=== PATIENT | female | born 1930 | race Caucasian/White ===

== ENCOUNTER 2017-02-28 11:21 | Inpatient (IN) ==
[2017-02-28] MEDS ORDERED: ENOXAPARIN 100 MG/ML SYRINGE SUBCUT STA (11:45)
[2017-02-28] MEDS ORDERED: ASPIRIN 325 MG TABLET PO STA (11:45)
[2017-02-28] MEDS ORDERED: ENOXAPARIN 100 MG/ML SYRINGE SUBCUT ONE (12:01)
[2017-02-28] MEDS ORDERED: ASPIRIN 325 MG TABLET ONE (12:01)
[2017-02-28 12:04] LABS: Basophils % 0.3 % (0.0-0.8); Eosinophils % 0.4 % (0.00-10.9); Hematocrit 35.6 VOL% (35.7-47.0); Hemoglobin 11.9 GM/DL (12.0-16.0); Immature Granulocytes % 0.4 %; Immature Granulocytes Absolute 0.03 #; Lymphocytes # 1.5 10*3/uL (1.4-4.0); Lymphocytes % 19.4 % (21.3-54.2); Mean Corpuscular HGB Conc 33.4 GM/DL (32-36); Mean Corpuscular Hemoglobin 31 PG (27-34); Mean Corpuscular Volume 93.4 FL (87-102); Mean Platelet Volume 10.6 FL (9.6-12.0); Monocytes # 0.5 10*3/uL (0.11-0.8); Monocytes % 5.9 % (1.7-12.7); Neutrophils # 5.7 10*3/uL (1.4-7.4); Neutrophils % 73.6 % (38.7-73.9); Platelet Count 191 T/CUMM (130-400); Red Blood Count 3.81 MC/CUMM (3.8-5.5); Red Cell Distribution Width 14.4 % (9.3-17.3); White Blood Count 7.7 T/CUMM (4-12)
--- NOTE | 2017-02-28 12:10 | XRay Report ---
History: Shortness of breath Date: 02/28/2017 Study: Chest x-ray AP portable Comparison exam: August 03, 2015 There is cardiomegaly. The pulmonary vasculature is slightly prominent. There is some hazy pulmonary edema in the lung bases. There is minimal bilateral pleural effusion. The mediastinal contours are stable in this patient status post prior median sternotomy. The osseous structures are unchanged. Impression: Cardiomegaly and evidence of CHF with some bibasilar pulmonary edema PROCEDURE INTERPRETED AT [facility] DEPARTMENT OF RADIOLOGY Final Report Signed by: Dr. Melvi Thao
[2017-02-28 12:39] LABS: Alanine Aminotransferase 28 U/L (13-56); Albumin 3.8 G/DL (3.4-5.0); Alkaline Phosphatase 85 U/L (45-117); Aspartate Amino Transferase 31 U/L (0-37); Blood Urea Nitrogen 28 MG/DL (7-18); Calcium 9.1 MG/DL (8.5-10.1); Glucose 99 MG/DL (74-106); Magnesium 2.5 MG/DL (1.8-2.4); Osmolality,Calculated 288.1 MOS/KG (273-304); Potassium 4.5 MMOL/L (3.5-5.1); Sodium 142 MMOL/L (136-145); Total Protein 7.1 G/DL (6.4-8.3); Troponin I Only < 0.015 NG/ML (0.00-0.045)
--- NOTE | 2017-02-28 12:43 | Emergency Department Note ---
Leah Leal Mantricia, am scribing for, and in the presence of, Stewart Kimball MD 12:07. IRehana Phillip K, MD, personally performed the services described in this documentation, ascribed by Alyssa Lynn in my presence, and it is both accurate and complete 243 . Arrival - Arrival Chief Complaint: Shortness of Breath Stated Complaint: sob, can't breath ED Nursing Triage Note: REPORTS PT C/O OF SOB THIS MORNING WITH HEAVINESS IN CHEST. DENIES NAUSES. PT O2 SAT ON ROOM AIR 90% AT TRIAGE. PT PALE Mode of Arrival: Wheelchair Limitations: No Limitations Source: Patient, Family Time Seen by Provider: 02/28/17 11:35 - History of Present Illness HPI Narrative: Pt is an 86 y/o white female arriving to ED with c/o SOB that onset 0530 this morning. Family states that pt seemed well yesterday when they went to visit her. Pt reports that she woke up this morning smothering and could hardly breathe. Pt has a PMHx of CHF, HTN, COPD, and DVT. Pt also reports right sided hip pain, coughing with yellow sputum, chest heaviness, and right shoulder pain. Pt had a bypass in 1998 and had no stents placed since then. Pt also had a blood clot in her LLE 5 years ago. She reports no other complaints to ED. Onset (ago): hour(s) Consistency: constant Severity: mild Date of Last Menstrual Period: HYST Allergies/Adverse Reactions: Allergies Allergy/AdvReac Type Severity Reaction Status Date / Time Penicillins Allergy ANAPHYLAXIS Verified 08/03/15 11:43 Home Medications: Home Medications Medication Instructions Recorded Confirmed Type Aspirin [Ecotrin] 81 mg PO DAILY 08/03/15 02/28/17 History Carvedilol [Coreg] 25 mg PO BID 08/03/15 02/28/17 History Celecoxib [Celebrex] 200 mg PO BID 08/03/15 02/28/17 History Citalopram [CeleXA] 30 mg PO BEDTIME 08/03/15 02/28/17 History Furosemide Tab [Lasix Tab] 1 - 2 tablet PO DAILY PRN 08/03/15 02/28/17 History Iron,Carbonyl/Ascorbic Acid 1 each PO DAILY 08/03/15 02/28/17 History [Icar-C Tablet] Multivitamin [Multivitamins] 1 each PO DAILY 08/03/15 02/28/17 History Pantoprazole Tab [Protonix Tab] 40 mg PO DAILY 08/03/15 02/28/17 History Albuterol/Ipratropium Neb [Duoneb] 3 ml RESP TX RT Q6H PRN 02/28/17 02/28/17 History Irbesartan [Irbesartan] 75 mg PO DAILY 02/28/17 02/28/17 History Review of System - Review of System 12 point system: reviewed and no additional remarkable complaints except as stated - Review of System Constitutional: Absent: chills, diaphoresis Eyes: Absent: discharge Respiratory: Present: cough (with yellow sputum), other (SOB) Cardiovascular: Present: chest pain (heaviness) Gastrointestinal: Absent: abdominal pain, nausea, vomiting, diarrhea Musculoskeletal: Present: neck pain, other (hip pain; right shoulder pain). Absent: arm pain, back pain, lower back pain, leg pain Skin: Absent: rash, lesions Medical,Surgical,& Family Hx - Medical History Cardio: History of: CHF, Hypertension, Cardiovascular Problems (open heart 1997) Musculoskeletal: History of: Musculoskeletal Problems (chronic pain) - Social History Smoking Status: Never smoker Frequency of Alcohol Use: None Type of Drug Use: None Exam Vital Signs: Vital Signs Temperature 98.4 F 02/28/17 11:32 Pulse Rate 85 02/28/17 11:32 Respiratory Rate 24 02/28/17 11:32 Blood Pressure 203/102 02/28/17 11:32 O2 Sat by Pulse Oximetry 90 L 02/28/17 11:32 - General General appearance: alert, in no apparent distress - Head Head exam: Present: atraumatic, normocephalic, normal inspection - Eye Eye exam: Present: normal appearance, PERRL, EOMI - ENT ENT exam: Present: normal exam, normal oropharynx, mucous membranes moist, TM's normal bilaterally, normal external ear exam - Neck Neck exam: Present: normal inspection, full ROM, trachea midline. Absent: tenderness - Chest Chest inspection: Present: normal inspection, symmetric chest wall rise. Absent : tenderness - Respiratory Respiratory exam: Present: rales - Cardiovascular Cardiovascular exam: Present: regular rate, normal rhythm, normal heart sounds - Abdominal Exam Abdominal exam: Present: soft, normal bowel sounds. Absent: distention, tenderness, guarding, rebound - Extremities Exam Extremities exam: Present: normal inspection, full ROM, normal capillary refill. Absent: tenderness, pedal edema - Back Exam Back exam: Present: normal inspection, full ROM. Absent: tenderness - Neurological Exam Neurological exam: Present: alert, oriented X3, CN II-XII intact, normal gait, reflexes normal - Psychiatric Psychiatric exam: Present: normal affect, normal mood - Skin Skin exam: Present: warm, dry, intact, normal color Results - Labs CBC & BMP: 02/28/17 11:51 02/28/17 11:51 Lab Results: I have reviewed the patients labs (BNP is 1548) Labs: Laboratory Tests 02/28/17 02/28/17 02/28/17 11:51 11:51 11:51 Hgb 11.9 L Hct 35.6 L Lymph % (Auto) 19.4 L ABG pCO2 ABG Total CO2 Chloride 109 H BUN 28 H Creatinine 1.60 H Magnesium 2.5 H B-Natriuretic Peptide 1548 H 02/28/17 12:45 Hgb Hct Lymph % (Auto) ABG pCO2 33.0 L ABG Total CO2 19.6 L Chloride BUN Creatinine Magnesium B-Natriuretic Peptide - EKG EKG results: interpreted by ERMD, sinus rhythm (LVH, right bundle branch block, left anterior hemiblock.) - Diagnostic Findings Procedure: Chest x-ray: report reviewed by me (Cardiomegaly and evidence of CHF with some bibasilar pulmonary edema. ) Disposition Clinical Impression: Congestive heart failure Case discussed with: patient, patient's family Disposition: Still a Patient Condition: Guarded Additional Instructions: Admit to Dr. Man.
[2017-02-28] MEDS ORDERED: ACETAMINOPHEN 325 MG TABLET PO PRN (12:51)
[2017-02-28] MEDS ORDERED: ONDANSETRON 4 MG/2 ML VIAL IV PRN (12:51)
[2017-02-28] MEDS ORDERED: FUROSEMIDE 40 MG/4 ML VIAL IV STA (12:53)
[2017-02-28 12:57] LABS: ABG Base Excess -1.7 MMOL/L (-2.5-2.5); ABG Oxygen Saturation 97.3 % (95-100); ABG PH 7.431 (7.35-7.45); ABG PO2 85.7 MM HG (80-95); ABG TCO2 19.6 MMOL/L (23-27)
--- NOTE | 2017-02-28 13:00 | EKG Report ---
Stationary ECG Study [facility] ER Test Date: 02/28/2017 11:37:15 AM Pat Name: GUS OLSON Department: Room: Gender: F Waiter/Waitress Captain: : 1930 Requested by: Stewart Torres Order Number: [id number] Reading MD: LEILA GUERRERO Intervals [place] Rate: 85 P: 24 MT: 232 QRS: -70 QRSD: 158 T: 76 QT: 425 QTc: 467 Interpretive Statements SINUS RHYTHM WITH PROLONGED MT INTERVAL RIGHT BUNDLE BRANCH BLOCK LEFT ANTERIOR FASCICULAR BLOCK LEFT VENTRICULAR HYPERTROPHY AND ST-T CHANGE Electronically Signed On 03-01-17 08:14:57 CDT by LEILA GUERRERO [email or web address]
[2017-02-28] MEDS ORDERED: FUROSEMIDE 100 MG/10 ML VIAL ONE (13:59)
[2017-02-28 16:06] LABS: Apearance,Urine CLEAR (Clear); Bacteria,Urine Many /HPF (Few); Bilirubin,Urine Negative (Negative); Blood, Urine Negative (Negative); Glucose,Urine (UA) Negative (Negative); Ketones,Urine Negative (Negative); Mucus,Urine Occasional /LPF (Occasional); Nitrite,Urine Negative (Negative); Protein,Urine Negative; RBC,Urine 1 /HPF (0-4); Urine Color Straw (Yellow); Urine Specific Gravity 1.006 (1.001-1.035); Urine Urobilinogen < 2.0 EU/DL (0.2-1.0); WBC,Urine <1 /HPF (0-6)
[2017-02-28] MEDS ORDERED: ALBUTEROL/IPRATROPIUM 3 ML NEB RESP TX PRN (17:11)
[2017-02-28] MEDS ORDERED: hydrALAZINE 20 MG/1 ML VIAL IV PRN (17:12)
--- NOTE | 2017-02-28 17:20 | Cardiology Consult Note ---
<Dhara Nelson E - Last Filed: 02/28/17 16:49> Assessment and Plan - Time spent with patient Time spent with patient: Greater than 30 minutes (1) CAD (coronary artery disease) Status: Chronic Assessment and plan: SEE PLAN OF CARE LISTED BELOW Current Visit: Yes (2) Hx of CABG Status: Chronic Assessment and plan: SEE PLAN OF CARE LISTED BELOW Current Visit: Yes (3) Hypertension Status: Chronic Assessment and plan: SEE PLAN OF CARE LISTED BELOW Current Visit: Yes (4) Dyslipidemia Status: Chronic Assessment and plan: SEE PLAN OF CARE LISTED BELOW Current Visit: Yes (5) D-dimer, elevated Status: Acute Assessment and plan: SEE PLAN OF CARE LISTED BELOW Current Visit: Yes (6) Leg pain, left Status: Acute Current Visit: Yes (7) Congestive heart failure Status: Acute Assessment and plan: SEE PLAN OF CARE LISTED BELOW Current Visit: Yes Qualifiers: Congestive heart failure type: unspecified congestive heart failure type History of Present Illness - Data of Consult Patient: known to practice within the last 3 years Consult date: 02/28/17 Requesting Physician: Murphy Man Primary care physician: Murphy Man - Consult Narrative Reason for consult: SOB History of present illness: DATABASE REPORTING CONSULTANT: DR. SUE Ms. Lee, 86WM, previously followed by Dr. Sue though she has not attended a clinic visit in several years. 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 Risk factors include: Advanced age, known coronary artery disease (S/P CABG 1999 Dr. Diego), hypertension, dyslipidemia, PVD, sedentary lifestyle. History of CHF, abdominal aortic aneurysm (followed by Dr. Schwab with recent follow-up), DVT left lower extremity approximately 4-5 years ago for which she took Coumadin for at least 6 months without recurrence. Echocardiogram February 10, 2014 reveals EF 55% with moderate mitral calcification. Patient presented to the emergency department at [facility] after experiencing shortness of breath upon waking this morning. Family members reported she was having some shortness of breath yesterday evening and during the night however, patient did not recognize having shortness of breath last evening. However, this morning, around 0530, she began to feel a heaviness in center of her chest without radiation, and a smothering sensation. She became significantly short of breath with two-pillow orthopnea. She then saught advice in the ER. Chest lasted approximately 30 minutes. She can identify no aggravating factors nor any alleviating factors. She is unable to write the discomfort on a scale of 1-10 and is currently chest pain-free. Patient reports she is fairly active at home, taking care of her ADLs without complaints of chest pain, heaviness or tightness. She has mild chronic shortness of breath. Upon arrival to the emergency department, she was discovered to have significantly elevated blood pressures averaging 200s/100s. Her daughter-in- law reports that she normally has much better control of her blood pressure. Chest x-ray revealed bibasilar pulmonary edema. First troponin is negative. ProBNP 1548, creatinine 1.6. EKG reveals a right bundle branch block, abnormal EKG. Patient has been given IV Lasix and has diuresed around 800 mL. She is breathing minimally better at this point. At this point, will better control her blood pressure, add nitrates, diurese patient and monitor strict I&O, daily weights. Echocardiogram has been ordered. D-dimer elevated, chronic left lower extremity pain to palpation with chronic edema therefore I will order venous ultrasound. We will continue cycle her cardiac biomarkers. Patient may benefit from cardiac catheterization as she has not had cardiac catheterization since 1998. Will further discuss with Dr. Morel and await additional recommendations. ASSESSMENT/PLAN: 1. ACUTE CHF - Etiology unknown but suspect may be related to uncontrolled hypertension, possible cardiomyopathy. Will further elaborate as additional information is obtained. NYHA Class III. 2. KNOWN CAD S/P CABG 1998 - unfortunately, do not have access to CABG records. Continue to treat with beta-brooke, ARB, lipid-lowering agent, aspirin, nitrates. 3. HYPERTENSION - suboptimally controlled. Getting beta-blockade now with hydralazine as needed systolic blood pressure greater than 160. 4. DYSLIPIDEMIA - lipid panel in the morning. Adding atorvastatin 40 mg each evening starting tonight 5. PVD - history of AAA followed by Dr. Schwab. Reports recent study in the past 6 months and was deemed "stable". 6. ABNORMAL EKG - EKG in the morning. Right bundle branch block of unknown duration 7. ELEVATED D-DIMER - venous ultrasound lower extremity now. May need CT chest, PTE protocol as she has a prior history of DVT approximately 4-5 years ago. CC: Murphy Man, DO - Home Medications and Allergies Home Medications: Home Medications Medication Instructions Recorded Confirmed Type Aspirin [Ecotrin] 81 mg PO DAILY 08/03/15 02/28/17 History Carvedilol [Coreg] 25 mg PO BID 08/03/15 02/28/17 History Celecoxib [Celebrex] 200 mg PO BID 08/03/15 02/28/17 History Citalopram [CeleXA] 30 mg PO BEDTIME 08/03/15 02/28/17 History Furosemide Tab [Lasix Tab] 1 - 2 tablet PO DAILY PRN 08/03/15 02/28/17 History Iron,Carbonyl/Ascorbic Acid 1 each PO DAILY 08/03/15 02/28/17 History [Icar-C Tablet] Multivitamin [Multivitamins] 1 each PO DAILY 08/03/15 02/28/17 History Pantoprazole Tab [Protonix Tab] 40 mg PO DAILY 08/03/15 02/28/17 History Albuterol/Ipratropium Neb [Duoneb] 3 ml RESP TX RT Q6H PRN 02/28/17 02/28/17 History Brimonidine/Timolol Oph Soln 1 drop BOTH EYES DAILY 02/28/17 02/28/17 History [Combigan] Irbesartan [Irbesartan] 75 mg PO DAILY 02/28/17 02/28/17 History Allergies/Adverse Reactions: Allergies Allergy/AdvReac Type Severity Reaction Status Date / Time Penicillins Allergy ANAPHYLAXIS Verified 08/03/15 11:43 Review of systems: REVIEW OF SYSTEMS: - Constitutional Constitutional: Present: Fatigue. Absent: syncope, anorexia, night sweats - EENT Eyes: Absent: blurry vision, loss of vision, diplopia Ears: Absent: decreased hearing, ear pain, ear discharge - Cardiovascular Cardiovascular: Present: chest pain heaviness, squeezing with shortness of breath this morning. Orthopnea, dyspnea on exertion, edema left lower extremity. Denies palpitations. Absent: chest pain with deep breath, claudication - Respiratory Respiratory: Present: VILL[place]VA, cough of thick yellow sputum. Absent: wheezing, hemoptysis, change in phlegm color - Gastrointestinal Gastrointestinal: Denies: constipation. Absent: abdominal pain, hematemesis, hematochezia, melena, change in bowel habits, nausea - Genitourinary Genitourinary: Absent: difficulty urinating, dysuria, urinary hesitancy, flank pain - Musculoskeletal Musculoskeletal: Present: back pain Absent: joint swelling, muscle cramps, muscle weakness - Neurological Neurological: Present: normal gait without frequent falls. Absent: dizziness, hemiparesis - Psychiatric Psychiatric: Absent: anxiety, depression, difficulty concentrating - Endocrine Endocrine: Present: fatigue. Absent: cold intolerance, heat intolerance, polyuria, polyphagia, polydipsia - Hematologic/Lymphatic Hematologic/Lymphatic: Present: easy bruising. Absent: easy bleeding -Integumentary Integumentary: Absent: lesions, rashes, skin breakdown Medical,Surgical,& Family Hx - Medical History Cardio: History of: Aneurysm (AAA), CHF, CAD, Hypertension, Cardiovascular Problems (open heart 1997) No history of: Cardiac Dysrhythmia Neurology: No history of: Seizures, TIA Endocrine: History of: Dyslipidemia No history of: Diabetes Mellitus (NIDDM), Thyroid Disorder Gastrointestinal: History of: GERD Musculoskeletal: History of: Musculoskeletal Problems (chronic pain) - Surgical History Cardiac Surgeries: Sugical HX of: Cardiac Catheterization, Cardiac Surgery () - Family History Family History: Reports;: Family Hypertension - Social History Smoking Status: Never smoker Frequency of Alcohol Use: None Type of Drug Use: None Marital Status: Lives With:: Alone Functional capacity: uses cane/walker Physical Examination Vital Signs Temp Pulse Resp BP Pulse Ox 98.4 F 85 24 203/102 90 L 02/28/17 11:32 02/28/17 11:32 02/28/17 11:32 02/28/17 11:32 02/28/17 11:32 General: [Appears well with no apparent distress.] [Pleasant and cooperative. ] [Appears comfortable.] HEENT: [PERRL, normocephalic, atraumatic. Mucous membranes moist. No jaundice noted. Conjunctiva moist and clear, sclerae anicteric] Neck: Difficult to assess for JVD due to habitus. No thyromegaly or lymphadenopathy noted. No carotid bruit appreciated Cardiac: [Regular rate and rhythm.] [Soft II/ HSM heard best at 5 ICS left. Lungs: [Inspiratory crackles posteriorly midway at both lung marshall, improved but persist with deep coughing. Mild, and expiratory wheezes noted anteriorly. Orthopneic, mild tachypnea] Oxygen in use via nasal cannula Abdomen: Soft, bowel sounds normoactive. Nontender and nondistended. No abdominal bruit or thrill noted. Musculoskeletal: No fluid collection. Decreased range of motion is noted. Extremities: No clubbing, cyanosis noted. [Left lower extremity edema trace, tender to touch. ] Upper extremity pulses 2+. Lower extremity pulses 2+. Capillary refill less than 3 seconds. Skin: No unusual lesions or rashes. No skin breakdown appreciated. Neuro: Awake, alert and oriented 3. Moves all extremities well without hemiparesis or paralysis. No essential tremor is appreciated. Result/EKG - Labs CBC & BMP: 02/28/17 11:51 02/28/17 11:51 Lab Results: I have reviewed the past 24 hour labs Labs: Laboratory Results - last 24 hr 02/28/17 02/28/17 02/28/17 11:51 11:51 11:51 WBC 7.7 RBC 3.81 Hgb 11.9 L Hct 35.6 L MCV 93.4 MCH 31 MCHC 33.4 RDW 14.4 Plt Count 191 MPV 10.6 Neut % (Auto) 73.6 Lymph % (Auto) 19.4 L [place] % (Auto) 5.9 Eos % (Auto) 0.4 Baso % (Auto) 0.3 Neut # (Auto) 5.7 Lymph # (Auto) 1.5 [place] # (Auto) 0.5 Eos # (Auto) 0.0 Baso # (Auto) 0.0 Immature Gran % 0.4 Nucleated RBC % 0.0 Immature Gran # 0.03 Nucleated RBCs # 0.00 D-Dimer, Quantitative 4.4 ABG pH ABG pCO2 ABG pO2 ABG HCO3 ABG Total CO2 ABG O2 Saturation ABG Base Excess Sodium 142 Potassium 4.5 Chloride 109 H Carbon Dioxide 24 Anion Gap 13.5 BUN 28 H Creatinine 1.60 H GFR Calculation 30 BUN/Creatinine Ratio 17.00 Glucose 99 Calculated Osmolality 288.1 Calcium 9.1 Magnesium 2.5 H Total Bilirubin 1.00 AST 31 ALT 28 Alkaline Phosphatase 85 Troponin I < 0.015 B-Natriuretic Peptide Total Protein 7.1 Albumin 3.8 Globulin 3.3 Albumin/Globulin Ratio 1.1 Urine Color Urine Appearance Urine pH Ur Specific Chavies Urine Protein Urine Glucose (UA) Urine Ketones Urine Blood Urine Nitrate Urine Bilirubin Urine Urobilinogen Urine Leukocytes Urine RBC Urine WBC Urine Bacteria Urine Mucus Ur Culture Indicated? 02/28/17 02/28/17 02/28/17 11:51 12:45 15:51 WBC RBC Hgb Hct MCV MCH MCHC RDW Plt Count MPV Neut % (Auto) Lymph % (Auto) [place] % (Auto) Eos % (Auto) Baso % (Auto) Neut # (Auto) Lymph # (Auto) [place] # (Auto) Eos # (Auto) Baso # (Auto) Immature Gran % Nucleated RBC % Immature Gran # Nucleated RBCs # D-Dimer, Quantitative ABG pH 7.431 ABG pCO2 33.0 L ABG pO2 85.7 ABG HCO3 23.0 ABG Total CO2 19.6 L ABG O2 Saturation 97.3 ABG Base Excess -1.7 Sodium Potassium Chloride Carbon Dioxide Anion Gap BUN Creatinine GFR Calculation BUN/Creatinine Ratio Glucose Calculated Osmolality Calcium Magnesium Total Bilirubin AST ALT Alkaline Phosphatase Troponin I B-Natriuretic Peptide 1548 H Total Protein Albumin Globulin Albumin/Globulin Ratio Urine Color Straw Urine Appearance Clear Urine pH 6.0 Ur Specific [place] 1.006 Urine Protein Negative Urine Glucose (UA) Negative Urine Ketones Negative Urine Blood Negative Urine Nitrate Negative Urine Bilirubin Negative Urine Urobilinogen < 2.0 H Urine Leukocytes Negative Urine RBC 1 Urine WBC <1 Urine Bacteria Many Urine Mucus Occasional Ur Culture Indicated? Not indicated - Diagnostic Findings Procedure: Chest x-ray: report reviewed by me - EKG EKG results: interpreted by id EKG shows: sinus rhythm (Right bundle branch block) <Tahmina Morel - Last Filed: 02/28/17 18:39> Assessment and Plan - Time spent with patient Time spent with patient: Greater than 30 minutes (Examination, chart review, interview documentation and orders) (1) Malignant hypertensive urgency Status: Acute Current Visit: Yes (2) Acute decompensated heart failure Status: Acute Assessment and plan: I think this is certainly from diastolic dysfunction severely uncontrolled or malignant hypertension with evidence of endorgan damage his heart failure. Certainly she may have underlying ischemia I will cycle her cardiac biomarkers continue with anticoagulation repeat transthoracic echo to assess LV function and diastolic parameters. Current Visit: Yes (3) CAD (coronary artery disease) Status: Chronic Current Visit: Yes (4) Hypertension Status: Chronic Current Visit: Yes (5) Dyslipidemia Status: Chronic Current Visit: Yes (6) D-dimer, elevated Status: Acute Current Visit: Yes (7) Leg pain, left Status: Acute Current Visit: Yes (8) history recurrent DVT Status: Chronic Current Visit: Yes (9) chronic low back pain Status: Chronic Current Visit: Yes (10) abdominal aortic aneurysm Status: Chronic Current Visit: Yes (11) Chronic renal insufficiency Status: Acute Current Visit: Yes History of Present Illness - Consult Narrative History of present illness: Ms. Lee is a 86 year old female I saw and examined the patient earlier with Ms. sosa. The above history is noted and taken from the patient. The patient has volume overload at this time and severely uncontrolled blood pressure I suspect this is diastolic dysfunction and volume overload secondary to hypertensive urgency. This is compounded by renal insufficiency. She also has an elevated d-dimer that may be related to renal insufficiency but she has had problems with of this in the past which may be contributing. Her exam and chest x-ray to me looked like heart failure. From talking to her children it sounds like she has been having more difficulty then she leads us to believe. She has a relatively poor functional status but has advanced age. She has classic orthopnea and heaviness in her chest with shortness of breath that woke her up around 430 this morning. She states that this is not why she woke up but she normally gets up later and she called her children she describes a heaviness in her chest this certainly could be the uncontrolled hypertension, pulmonary edema, pulmonary embolism or ACS. She is some 17 years out from her last cardiac evaluation invasively time she received a bypass grafting. Her second troponin is minimally increased from her previous immeasurably low troponin. This also could come from renal insufficiency and her decompensated state with hypertension. We will try to control her blood pressure and diuresis she has a large volume of clear yellow urine in her Lem[place] at this time. I saw and examined with Ms. sosa and agree with her findings as below. CC: Murphy Man, DO Review of systems: As above Physical Examination Vital Signs Temp Pulse Resp BP Pulse Ox 98.4 F 85 24 203/102 90 L 02/28/17 11:32 02/28/17 11:32 02/28/17 11:32 02/28/17 11:32 02/28/17 11:32 She has an S4 gallop. She also has rales as dictated above. Pain with palpation of her lower extremities but no unilateral edema. This is pain is been chronic since her vein graft harvest. Result/EKG - Labs CBC & BMP: 02/28/17 11:51 02/28/17 11:51 Labs: Laboratory Results - last 24 hr 02/28/17 02/28/17 02/28/17 11:51 11:51 11:51 WBC 7.7 RBC 3.81 Hgb 11.9 L Hct 35.6 L MCV 93.4 MCH 31 MCHC 33.4 RDW 14.4 Plt Count 191 MPV 10.6 Neut % (Auto) 73.6 Lymph % (Auto) 19.4 L [place] % (Auto) 5.9 Eos % (Auto) 0.4 Baso % (Auto) 0.3 Neut # (Auto) 5.7 Lymph # (Auto) 1.5 [place] # (Auto) 0.5 Eos # (Auto) 0.0 Baso # (Auto) 0.0 Immature Gran % 0.4 Nucleated RBC % 0.0 Immature Gran # 0.03 Nucleated RBCs # 0.00 D-Dimer, Quantitative 4.4 ABG pH ABG pCO2 ABG pO2 ABG HCO3 ABG Total CO2 ABG O2 Saturation ABG Base Excess Sodium 142 Potassium 4.5 Chloride 109 H Carbon Dioxide 24 Anion Gap 13.5 BUN 28 H Creatinine 1.60 H GFR Calculation 30 BUN/Creatinine Ratio 17.00 Glucose 99 Calculated Osmolality 288.1 Calcium 9.1 Magnesium 2.5 H Total Bilirubin 1.00 AST 31 ALT 28 Alkaline Phosphatase 85 Total Creatine Kinase CK-MB (CK-2) Troponin I < 0.015 B-Natriuretic Peptide Total Protein 7.1 Albumin 3.8 Globulin 3.3 Albumin/Globulin Ratio 1.1 Free T4 TSH 3rd Generation Urine Color Urine Appearance Urine pH Ur Specific Chavies Urine Protein Urine Glucose (UA) Urine Ketones Urine Blood Urine Nitrate Urine Bilirubin Urine Urobilinogen Urine Leukocytes Urine RBC Urine WBC Urine Bacteria Urine Mucus Ur Culture Indicated? 02/28/17 02/28/17 02/28/17 11:51 12:45 15:51 WBC RBC Hgb Hct MCV MCH MCHC RDW Plt Count MPV Neut % (Auto) Lymph % (Auto) [place] % (Auto) Eos % (Auto) Baso % (Auto) Neut # (Auto) Lymph # (Auto) [place] # (Auto) Eos # (Auto) Baso # (Auto) Immature Gran % Nucleated RBC % Immature Gran # Nucleated RBCs # D-Dimer, Quantitative ABG pH 7.431 ABG pCO2 33.0 L ABG pO2 85.7 ABG HCO3 23.0 ABG Total CO2 19.6 L ABG O2 Saturation 97.3 ABG Base Excess -1.7 Sodium Potassium Chloride Carbon Dioxide Anion Gap BUN Creatinine GFR Calculation BUN/Creatinine Ratio Glucose Calculated Osmolality Calcium Magnesium Total Bilirubin AST ALT Alkaline Phosphatase Total Creatine Kinase CK-MB (CK-2) Troponin I B-Natriuretic Peptide 1548 H Total Protein Albumin Globulin Albumin/Globulin Ratio Free T4 TSH 3rd Generation Urine Color Straw Urine Appearance Clear Urine pH 6.0 Ur Specific [place]av[place] 1.006 Urine Protein Negative Urine Glucose (UA) Negative Urine Ketones Negative Urine Blood Negative Urine Nitrate Negative Urine Bilirubin Negative Urine Urobilinogen < 2.0 H Urine Leukocytes Negative Urine RBC 1 Urine WBC <1 Urine Bacteria Many Urine Mucus Occasional Ur Culture Indicated? Not indicated 02/28/17 02/28/17 17:30 17:40 WBC RBC Hgb Hct MCV MCH MCHC RDW Plt Count MPV Neut % (Auto) Lymph % (Auto) [place] % (Auto) Eos % (Auto) Baso % (Auto) Neut # (Auto) Lymph # (Auto) [place] # (Auto) Eos # (Auto) Baso # (Auto) Immature Gran % Nucleated RBC % Immature Gran # Nucleated RBCs # D-Dimer, Quantitative ABG pH ABG pCO2 ABG pO2 ABG HCO3 ABG Total CO2 ABG O2 Saturation ABG Base Excess Sodium Potassium Chloride Carbon Dioxide Anion Gap BUN Creatinine GFR Calculation BUN/Creatinine Ratio Glucose Calculated Osmolality Calcium Magnesium Total Bilirubin AST ALT Alkaline Phosphatase Total Creatine Kinase 81 CK-MB (CK-2) 2.4 Troponin I 0.019 B-Natriuretic Peptide Total Protein Albumin Globulin Albumin/Globulin Ratio Free T4 1.15 TSH 3rd Generation 0.951 Urine Color Urine Appearance Urine pH Ur Specific [place]av[place] Urine Protein Urine Glucose (UA) Urine Ketones Urine Blood Urine Nitrate Urine Bilirubin Urine Urobilinogen Urine Leukocytes Urine RBC Urine WBC Urine Bacteria Urine Mucus Ur Culture Indicated? 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
[2017-02-28 18:12] LABS: Free T4 (Free Thyroxine) 1.15 NG/DL (0.76-1.46); Thyroid Stimulating Hormone 0.951 uIU/ml (0.358-3.74)
--- NOTE | 2017-02-28 18:12 | Family Practice History&Phys ---
Assessment and Plan (1) Congestive heart failure Status: Acute Assessment and plan: Acute onset last PM. Has elevated BNP with congestive heart failure noted on chest x-ray. Will start on diuretics and appropriate therapy Current Visit: Yes Qualifiers: Congestive heart failure type: unspecified congestive heart failure type (2) substernal chest pain Status: Acute Assessment and plan: Initial EKG and isoenzymes were negative for ischemia. We'll need to evaluate further. Current Visit: Yes (3) Hypertension Status: Chronic Assessment and plan: History of poorly controlled at present. We'll need to modify medications Current Visit: Yes (4) chronic obstructive pulmonary disease Status: Chronic Assessment and plan: Stable on present treatment plan Current Visit: Yes (5) obstructive sleep apnea Status: Chronic Assessment and plan: Stable at present Current Visit: Yes (6) s/p coronary artery bypass graft Status: Chronic Assessment and plan: Stable on present treatment plan Current Visit: Yes (7) history recurrent DVT Status: Chronic Assessment and plan: History of recurrent deep vein thrombosis Current Visit: Yes (8) abdominal aortic aneurysm Status: Chronic Assessment and plan: Stable at present Current Visit: Yes (9) CAD (coronary artery disease) Status: Chronic Assessment and plan: Stable on present treatment plan Current Visit: Yes (10) chronic low back pain Status: Chronic Assessment and plan: History of chronic low back pain stable at present. Said previous lumbar discectomy Current Visit: Yes (11) Dyslipidemia Status: Chronic Assessment and plan: Stable on present treatment plan Current Visit: Yes History of Present Illness Chief complaint: dyspnea and chest pain History of present illness: Ms. Lee is a 86 year old female Patient presented to the emergency department complaining of shortness of breath upon waking this morning. Family members reported she was having some shortness of breath yesterday evening and during the night however, patient did not recognize having shortness of breath last evening this morning, around 0530 , she began to feel a heaviness in center of her chest without radiation, and a smothering sensation. She became significantly short of breath with two-pillow orthopnea.Her Chest pain lasted approximately 30 minutes. She can identify no aggravating factors nor any alleviating factors. Patient reports she is fairly active at home, taking care of her ADLs without complaints of chest pain, heaviness or tightness. She has mild chronic shortness of breath due to chronic obstructive pulmonary disease. Upon arrival in the emergency department , she was discovered to have significantly elevated blood pressures averaging 200s/100s. Her [id number] reports that she normally has much better control of her blood pressure. Chest x-ray revealed bibasilar pulmonary edema. First troponin is negative. ProBNP 1548, creatinine 1.6. EKG reveals a right bundle branch block, abnormal EKG. Patient has been given IV Lasix and has diuresed around 800 mL. in view of history patient is being admitted for further evaluation and therapy Home Medications Medication Instructions Recorded Confirmed Type Aspirin [Ecotrin] 81 mg PO DAILY 08/03/15 02/28/17 History Carvedilol [Coreg] 25 mg PO BID 08/03/15 02/28/17 History Celecoxib [Celebrex] 200 mg PO BID 08/03/15 02/28/17 History Citalopram [CeleXA] 30 mg PO BEDTIME 08/03/15 02/28/17 History Furosemide Tab [Lasix Tab] 1 - 2 tablet PO DAILY PRN 08/03/15 02/28/17 History Iron,Carbonyl/Ascorbic Acid 1 each PO DAILY 08/03/15 02/28/17 History [Icar-C Tablet] Multivitamin [Multivitamins] 1 each PO DAILY 08/03/15 02/28/17 History Pantoprazole Tab [Protonix Tab] 40 mg PO DAILY 08/03/15 02/28/17 History Albuterol/Ipratropium Neb [Duoneb] 3 ml RESP TX RT Q6H PRN 02/28/17 02/28/17 History Brimonidine/Timolol Oph Soln 1 drop BOTH EYES DAILY 02/28/17 02/28/17 History [Combigan] Irbesartan [Irbesartan] 75 mg PO DAILY 02/28/17 02/28/17 History Allergies Allergy/AdvReac Type Severity Reaction Status Date / Time Penicillins Allergy ANAPHYLAXIS Verified 08/03/15 11:43 Medical,Surgical,& Family Hx - Medical History Cardio: History of: Aneurysm (AAA), CHF, CAD, Hypertension, Cardiovascular Problems (open heart 1997) No history of: Cardiac Dysrhythmia Neurology: No history of: Seizures, TIA Endocrine: History of: Dyslipidemia No history of: Diabetes Mellitus (NIDDM), Thyroid Disorder Rheumatology: History of;: Fibromyalgia Respiratory: History of: COPD Renal: History of: Renal Failure Gastrointestinal: History of: GERD Musculoskeletal: History of: Musculoskeletal Problems (chronic pain) Hematology: History of: Anemia (anemia of chronic disease) - Surgical History Cardiac Surgeries: Sugical HX of: Cardiac Catheterization, Cardiac Surgery (98) HEENT Surgeries: Surgical HX of: Tonsilectomy & Adenoidectomy Abdominal Surgeries: Surgical HX of: Hernia Repair (umbilical hernia repair) Reproductive Surgeries: Surgical HX of;: Hysterectomy Orthopedic Surgeries: Surgical HX of;: Orthopedic Surgery (arthroscopic surgery right knee), Spinal Surgery (lumbar laminectomy), Total Knee Replacement (left side) - Family History Family History: Reports;: Family Cancer, Family Hypertension - Social History Smoking Status: Never smoker Frequency of Alcohol Use: None Type of Drug Use: None Marital Status: Lives With:: Children Functional capacity: uses cane/walker Exam - Constitutional Vitals: Period Temp Pulse Resp BP Sys/Arteaga Pulse Ox Last 24 Hr 97.9 F-98.4 F 67-85 18-24 193-203/88-102 90-97 General appearance: mild distress - Head Head exam: Present: normal inspection - Eye Pupils: Present: JENNY - ENT ENT exam: Present: normal exam - Neck Neck exam: Present: normal inspection - Respiratory Respiratory exam: Present: rales - Cardiovascular Cardiovascular exam: Present: irregular rhythm, systolic murmur - GI/Abdominal GI/Abdominal exam: Present: normal bowel sounds, soft - Extremities Exam Extremities exam: Present: full ROM, edema - Back Exam Back exam: Present: muscle spasm, vertebral tenderness - Neurological Exam Neurological exam: Present: alert, oriented X3 - Psychiatric Psychiatric exam: Present: normal affect, normal mood - Skin Skin exam: Present: normal color Results - Labs CBC & BMP: 02/28/17 11:51 02/28/17 11:51
[2017-02-28 18:14] LABS: Troponin I Only 0.019 NG/ML (0.00-0.045)
[2017-02-28] MEDS: NITROGLYCERIN 2% OINT 1 INCH/GM PACK TOP SCH (18:33)
[2017-02-28] MEDS: CARVEDILOL 25 MG TABLET PO SCH ×2 (18:33→21:55)
[2017-02-28] MEDS: ENOXAPARIN 40 MG/0.4 ML SYRINGE SUBCUT SCH (18:33)
[2017-02-28] MEDS ORDERED: hydrALAZINE 20 MG/1 ML VIAL IV ONE (18:39)
--- NOTE | 2017-02-28 19:57 | Ultrasound Report ---
US venous doppler LE BI Indication: Elevated d-dimer. History of prior DVT. Left leg pain and swelling. BILATERAL LOWER EXTREMITY VENOUS ULTRASOUND Comparison: 11/22/2016 Findings: Graded grayscale compression, color Doppler and pulsed Doppler ultrasound evaluation of the venous structures performed. Normal compressibility, augmentation and color saturation is present within bilateral common femoral, superficial femoral, popliteal and proximal greater saphenous veins. Impression: No evidence of DVT either lower extremity. PROCEDURE INTERPRETED AT [facility] DEPARTMENT OF RADIOLOGY Final Report Signed by: Michael Chapman M.D.
[2017-02-28] MEDS ORDERED: CELECOXIB 200 MG CAPSULE PO SCH (21:00)
[2017-02-28] MEDS: FUROSEMIDE 40 MG/4 ML VIAL IV SCH (21:16)
[2017-02-28] MEDS: CITALOPRAM 20 MG TABLET PO SCH (21:54)
[2017-02-28] MEDS: MAGNESIUM OXIDE 400 MG TABLET PO SCH (21:55)
[2017-02-28] MEDS: ATORVASTATIN 40 MG TABLET PO SCH (21:55)
[2017-02-28] MEDS: DOCUSATE SODIUM 100 MG CAPSULE PO SCH (21:56)
[2017-03-01] MEDS: NITROGLYCERIN 2% OINT 1 INCH/GM PACK TOP SCH ×2 (02:31→05:58)
[2017-03-01 04:44] LABS: Basophils % 0.2 % (0.0-0.8); Eosinophils % 0.2 % (0.00-10.9); Hematocrit 35.1 VOL% (35.7-47.0); Hemoglobin 11.5 GM/DL (12.0-16.0); Immature Granulocytes % 0.4 %; Immature Granulocytes Absolute 0.03 #; Lymphocytes # 1.6 10*3/uL (1.4-4.0); Lymphocytes % 18.1 % (21.3-54.2); Mean Corpuscular HGB Conc 32.8 GM/DL (32-36); Mean Corpuscular Hemoglobin 30 PG (27-34); Mean Corpuscular Volume 92.9 FL (87-102); Mean Platelet Volume 11.6 FL (9.6-12.0); Monocytes # 0.6 10*3/uL (0.11-0.8); Monocytes % 6.4 % (1.7-12.7); Neutrophils # 6.4 10*3/uL (1.4-7.4); Neutrophils % 74.7 % (38.7-73.9); Platelet Count 197 T/CUMM (130-400); Red Blood Count 3.78 MC/CUMM (3.8-5.5); Red Cell Distribution Width 14.5 % (9.3-17.3); White Blood Count 8.5 T/CUMM (4-12)
[2017-03-01 05:12] LABS: Albumin 3.7 G/DL (3.4-5.0); Bilirubin,Total 1.1 MG/DL (0.2-1.0); Calcium 9.6 MG/DL (8.5-10.1); Ferritin 93.6 ng/ml (8-252); Osmolality,Calculated 290.1 MOS/KG (273-304); Potassium 4.5 MMOL/L (3.5-5.1); Total Protein 6.5 G/DL (6.4-8.3)
[2017-03-01 05:17] LABS: Calcium 9.6 MG/DL (8.5-10.1); Magnesium 2.7 MG/DL (1.8-2.4); Osmolality,Calculated 290.1 MOS/KG (273-304); Potassium 4.4 MMOL/L (3.5-5.1); Risk Ratio 4.22; VLDL CHOLESTEROL 23.6 MG/DL
[2017-03-01] MEDS: ENOXAPARIN 40 MG/0.4 ML SYRINGE SUBCUT SCH (05:58)
--- NOTE | 2017-03-01 07:43 | EKG Report ---
Stationary ECG Study [facility] Test Date: 03/01/2017 7:42:21 AM Pat Name: GUS OLSON Department: Room: 294 Gender: F [employer] Binding Worker: : 1930 Requested by: Dhara Payan Order Number: [id number] Reading MD: DAVID HICKS Intervals [place] Rate: 68 P: 65 OR: 216 QRS: -73 QRSD: 153 T: 83 QT: 490 QTc: 507 Interpretive Statements SINUS RHYTHM WITH PROLONGED OR INTERVAL WITH FREQUENT SUPRAVENTRICULAR PREMATURE COMPLEXES RIGHT BUNDLE BRANCH BLOCK LEFT ANTERIOR FASCICULAR BLOCK LEFT VENTRICULAR HYPERTROPHY AND ST-T CHANGE POSSIBLE SEPTAL MYOCARDIAL INFARCTION, PROBABLY OLD Electronically Signed On 03-01-17 15:40:12 CDT by DAVID HICKS [email or web address]
--- NOTE | 2017-03-01 08:29 | XRay Report ---
XR chest 2V Date: 03/01/2017 4:00 AM History: Congestive heart failure Comparison: 02/28/2017 Technique: PA and lateral chest Findings: The heart is smaller in size with prior median sternotomy. Diffuse arterial calcifications with calcification in the mitral valve annulus. Significant reduction in the parenchymal findings in the lungs with smaller pleural effusions. The lungs are overexpanded with stable mediastinum and osseous structures. Impression: Marked improvement in the previously noted CHF with significantly smaller pleural effusions. Underlying COPD with chronic scarring in patient with prior median sternotomy. PROCEDURE INTERPRETED AT [facility] DEPARTMENT OF RADIOLOGY Final Report Signed by: Dr. Hali Alaniz
[2017-03-01] MEDS: IRBESARTAN 150 MG TABLET PO SCH (09:03)
[2017-03-01] MEDS: ASPIRIN EC 81 MG TABLET PO SCH (09:03)
[2017-03-01] MEDS: POTASSIUM CHLORIDE 20 MEQ TABLET PO SCH (09:03)
[2017-03-01] MEDS: IRON (CARBONYL)/VIT C/B12/FA TABLET PO SCH (09:03)
[2017-03-01] MEDS: PANTOPRAZOLE 40 MG TABLET PO SCH (09:04)
[2017-03-01] MEDS: MAGNESIUM OXIDE 400 MG TABLET PO SCH ×2 (09:04→20:58)
[2017-03-01] MEDS: CARVEDILOL 25 MG TABLET PO SCH ×2 (09:04→20:58)
[2017-03-01] MEDS: DOCUSATE SODIUM 100 MG CAPSULE PO SCH ×2 (09:04→20:58)
[2017-03-01] MEDS: MULTIVITAMIN (CENTRUM) TABLET PO SCH (09:04)
[2017-03-01] MEDS: amLODIPine 5 MG TABLET PO SCH (09:04)
[2017-03-01] MEDS: BRIMONIDINE/TIMOLOL OPH SOLN 5 ML BOTTLE BOTH EYES SCH (09:05)
[2017-03-01] MEDS: FUROSEMIDE 40 MG/4 ML VIAL IV SCH (09:06)
--- NOTE | 2017-03-01 10:13 | Cardiology Progress Note ---
<Dhara Nelson E - Last Filed: 03/01/17 10:00> Assessment and Plan - Time spent with patient Time spent with patient: Greater than 30 minutes (1) CAD (coronary artery disease) Status: Chronic Assessment and plan: SEE PLAN OF CARE LISTED BELOW Current Visit: Yes (2) Hx of CABG Status: Deleted Assessment and plan: SEE PLAN OF CARE LISTED BELOW Current Visit: Yes (3) Hypertension Status: Chronic Assessment and plan: SEE PLAN OF CARE LISTED BELOW Current Visit: Yes (4) Dyslipidemia Status: Chronic Assessment and plan: SEE PLAN OF CARE LISTED BELOW Current Visit: Yes (5) D-dimer, elevated Status: Chronic Assessment and plan: SEE PLAN OF CARE LISTED BELOW Current Visit: Yes (6) Leg pain, left Status: Chronic Assessment and plan: SEE PLAN OF CARE LISTED BELOW Current Visit: Yes (7) Congestive heart failure Status: Acute Assessment and plan: SEE PLAN OF CARE LISTED BELOW Current Visit: Yes Qualifiers: Congestive heart failure type: unspecified congestive heart failure type (8) Acute renal insufficiency Status: Acute Assessment and plan: SEE PLAN OF CARE LISTED BELOW Current Visit: Yes Cardiology - PN: Subj Interval history: INFORMATION SECURITY RISK ANALYST: DR. REYNOSO SUMMARY: Ms. Lee, 86WM, with a past medical history of coronary artery disease (S/P CABG 1999 Dr. Diego), hypertension, dyslipidemia, PVD (AAA followed by Dr. Schwab), CHF, DVT left lower extremity approximately 4-5 years ago for which she took Coumadin for at least 6 months without recurrence. Admitted February 28, 2017 for acute CHF, hypertensive urgency. MARCH 01, 2017: This morning, patient is resting more comfortably, less tachypneic. Overnight, patient has lost 1-1/2 kg. Cardiac biomarkers are negative and blood pressure is much better controlled. Of note, patient did receive an injection she believes to be a steroid injection in her left hip on Sunday from pain management. She reports her blood pressure is usually better controlled than her recorded blood pressures then admission vital signs. Labs are stable, creatinine increased from 1.6-1.9. Venous ultrasound revealed no DVT. LDL 166. Atorvastatin was initiated last evening. Blood pressure better controlled (SBP 140-150s) and there may be room to increase Norvasc. Will continue to follow vital signs throughout the day. Patient may benefit from cardiac catheterization eventually. Will further discuss with Dr. Morel and await additional recommendations. ASSESSMENT/PLAN: 1. ACUTE CHF - Etiology unknown but suspect may be related to uncontrolled hypertension, possible cardiomyopathy. Will further elaborate as additional information is obtained. NYHA Class III. Echo pending. 2. KNOWN CAD S/P CABG 1998 - unfortunately, do not have access to CABG records. Continue to treat with beta-brooke, ARB, lipid-lowering agent, aspirin, nitrates. 3. HYPERTENSION - better controlled on Coreg, Amlodipine, ARB. May have room to increase Amlodipine and will watch today's VS. 4. DYSLIPIDEMIA - LDL 166. Atorvastatin was initiated last evening. 5. PVD - history of AAA followed by Dr. Schwab. Reports recent study in the past 6 months and was deemed "stable". 6. ABNORMAL EKG - Right bundle branch block of unknown duration 7. ELEVATED D-DIMER - venous ultrasound lower extremity reveals no DVT. May be related to her creatinine elevation. 8. ACUTE RENAL FAILURE, STAGE IV - Creatinine 1.9 this morning. I suspect she was a component of CKD though I have no records to support. Will continue to monitor labs daily. Exam (Progress Note) - Constitutional Vitals: Period Temp Pulse Resp BP Sys/Arteaga Pulse Ox Last 24 Hr 97.3 F-98.6 F 63-85 16-24 142-203/76-102 90-98 Exam: General: [Appears well with no apparent distress.] [Pleasant and cooperative. ] [Appears comfortable.] HEENT: [PERRL, normocephalic, atraumatic. Mucous membranes moist. No jaundice noted. Conjunctiva moist and clear, sclerae anicteric] Neck: Difficult to assess for JVD due to habitus. No thyromegaly or lymphadenopathy noted. No carotid bruit appreciated Cardiac: [Regular rate and rhythm.] [Soft II/ HSM heard best at 5 ICS left. Lungs: [Scant crackles in bases, less tachypneic. Off oxygen this morning. Abdomen: Soft, bowel sounds normoactive. Nontender and nondistended. No abdominal bruit or thrill noted. Musculoskeletal: No fluid collection. Decreased range of motion is noted. Extremities: No clubbing, cyanosis noted. [No edema lower extremities. TEDs on. ] Upper extremity pulses 2+. Lower extremity pulses 2+. Capillary refill less than 3 seconds. Skin: No unusual lesions or rashes. No skin breakdown appreciated. Neuro: Awake, alert and oriented 3. Moves all extremities well without hemiparesis or paralysis. No essential tremor is appreciated. Result/EKG - Labs CBC & BMP: 03/01/17 03:39 03/01/17 03:39 Lab Results: I have reviewed the past 24 hour labs Labs: Laboratory Results - last 24 hr 02/28/17 02/28/17 02/28/17 11:51 11:51 11:51 WBC 7.7 RBC 3.81 Hgb 11.9 L Hct 35.6 L MCV 93.4 MCH 31 MCHC 33.4 RDW 14.4 Plt Count 191 MPV 10.6 Neut % (Auto) 73.6 Lymph % (Auto) 19.4 L [place] % (Auto) 5.9 Eos % (Auto) 0.4 Baso % (Auto) 0.3 Neut # (Auto) 5.7 Lymph # (Auto) 1.5 [place] # (Auto) 0.5 Eos # (Auto) 0.0 Baso # (Auto) 0.0 Immature Gran % 0.4 Nucleated RBC % 0.0 Immature Gran # 0.03 Nucleated RBCs # 0.00 D-Dimer, Quantitative 4.4 ABG pH ABG pCO2 ABG pO2 ABG HCO3 ABG Total CO2 ABG O2 Saturation ABG Base Excess Sodium 142 Potassium 4.5 Chloride 109 H Carbon Dioxide 24 Anion Gap 13.5 BUN 28 H Creatinine 1.60 H GFR Calculation 30 BUN/Creatinine Ratio 17.00 Glucose 99 Calculated Osmolality 288.1 Calcium 9.1 Magnesium 2.5 H Ferritin Total Bilirubin 1.00 AST 31 ALT 28 Alkaline Phosphatase 85 Total Creatine Kinase CK-MB (CK-2) Troponin I < 0.015 B-Natriuretic Peptide Total Protein 7.1 Albumin 3.8 Globulin 3.3 Albumin/Globulin Ratio 1.1 Triglycerides Cholesterol LDL Cholesterol VLDL Cholesterol HDL Cholesterol Heart Disease Risk Ratio Free T4 TSH 3rd Generation Urine Color Urine Appearance Urine pH Ur Specific [place] Urine Protein Urine Glucose (UA) Urine Ketones Urine Blood Urine Nitrate Urine Bilirubin Urine Urobilinogen Urine Leukocytes Urine RBC Urine WBC Urine Bacteria Urine Mucus Ur Culture Indicated? 02/28/17 02/28/17 02/28/17 11:51 12:45 15:51 WBC RBC Hgb Hct MCV MCH MCHC RDW Plt Count MPV Neut % (Auto) Lymph % (Auto) [place] % (Auto) Eos % (Auto) Baso % (Auto) Neut # (Auto) Lymph # (Auto) [place] # (Auto) Eos # (Auto) Baso # (Auto) Immature Gran % Nucleated RBC % Immature Gran # Nucleated RBCs # D-Dimer, Quantitative ABG pH 7.431 ABG pCO2 33.0 L ABG pO2 85.7 ABG HCO3 23.0 ABG Total CO2 19.6 L ABG O2 Saturation 97.3 ABG Base Excess -1.7 Sodium Potassium Chloride Carbon Dioxide Anion Gap BUN Creatinine GFR Calculation BUN/Creatinine Ratio Glucose Calculated Osmolality Calcium Magnesium Ferritin Total Bilirubin AST ALT Alkaline Phosphatase Total Creatine Kinase CK-MB (CK-2) Troponin I B-Natriuretic Peptide 1548 H Total Protein Albumin Globulin Albumin/Globulin Ratio Triglycerides Cholesterol LDL Cholesterol VLDL Cholesterol HDL Cholesterol Heart Disease Risk Ratio Free T4 TSH 3rd Generation Urine Color Straw Urine Appearance Clear Urine pH 6.0 Ur Specific [place] 1.006 Urine Protein Negative Urine Glucose (UA) Negative Urine Ketones Negative Urine Blood Negative Urine Nitrate Negative Urine Bilirubin Negative Urine Urobilinogen < 2.0 H Urine Leukocytes Negative Urine RBC 1 Urine WBC <1 Urine Bacteria Many Urine Mucus Occasional Ur Culture Indicated? Not indicated 02/28/17 02/28/17 02/28/17 17:30 17:40 21:28 WBC RBC Hgb Hct MCV MCH MCHC RDW Plt Count MPV Neut % (Auto) Lymph % (Auto) [place] % (Auto) Eos % (Auto) Baso % (Auto) Neut # (Auto) Lymph # (Auto) [place] # (Auto) Eos # (Auto) Baso # (Auto) Immature Gran % Nucleated RBC % Immature Gran # Nucleated RBCs # D-Dimer, Quantitative ABG pH ABG pCO2 ABG pO2 ABG HCO3 ABG Total CO2 ABG O2 Saturation ABG Base Excess Sodium Potassium Chloride Carbon Dioxide Anion Gap BUN Creatinine GFR Calculation BUN/Creatinine Ratio Glucose Calculated Osmolality Calcium Magnesium Ferritin Total Bilirubin AST ALT Alkaline Phosphatase Total Creatine Kinase 81 CK-MB (CK-2) 2.4 Troponin I 0.019 0.023 B-Natriuretic Peptide Total Protein Albumin Globulin Albumin/Globulin Ratio Triglycerides Cholesterol LDL Cholesterol VLDL Cholesterol HDL Cholesterol Heart Disease Risk Ratio Free T4 1.15 TSH 3rd Generation 0.951 Urine Color Urine Appearance Urine pH Ur Specific [place] Urine Protein Urine Glucose (UA) Urine Ketones Urine Blood Urine Nitrate Urine Bilirubin Urine Urobilinogen Urine Leukocytes Urine RBC Urine WBC Urine Bacteria Urine Mucus Ur Culture Indicated? 03/01/17 03/01/17 03/01/17 00:47 03:39 03:39 WBC 8.5 RBC 3.78 L Hgb 11.5 L Hct 35.1 L MCV 92.9 MCH 30 MCHC 32.8 RDW 14.5 Plt Count 197 MPV 11.6 Neut % (Auto) 74.7 H Lymph % (Auto) 18.1 L [place] % (Auto) 6.4 Eos % (Auto) 0.2 Baso % (Auto) 0.2 Neut # (Auto) 6.4 Lymph # (Auto) 1.6 [place] # (Auto) 0.6 Eos # (Auto) 0.0 Baso # (Auto) 0.0 Immature Gran % 0.4 Nucleated RBC % 0.0 Immature Gran # 0.03 Nucleated RBCs # 0.00 D-Dimer, Quantitative ABG pH ABG pCO2 ABG pO2 ABG HCO3 ABG Total CO2 ABG O2 Saturation ABG Base Excess Sodium 142 Potassium 4.4 Chloride 106 Carbon Dioxide 29 Anion Gap 11.4 BUN 35 H Creatinine 2.00 H GFR Calculation 23 BUN/Creatinine Ratio 17.00 Glucose 106 Calculated Osmolality 290.1 Calcium 9.6 Magnesium 2.7 H Ferritin Total Bilirubin AST ALT Alkaline Phosphatase Total Creatine Kinase CK-MB (CK-2) Troponin I 0.026 B-Natriuretic Peptide Total Protein Albumin Globulin Albumin/Globulin Ratio Triglycerides 118 Cholesterol 228 H LDL Cholesterol 166.0 VLDL Cholesterol 23.6 HDL Cholesterol 54 Heart Disease Risk Ratio 4.22 Free T4 TSH 3rd Generation Urine Color Urine Appearance Urine pH Ur Specific [place] Urine Protein Urine Glucose (UA) Urine Ketones Urine Blood Urine Nitrate Urine Bilirubin Urine Urobilinogen Urine Leukocytes Urine RBC Urine WBC Urine Bacteria Urine Mucus Ur Culture Indicated? 03/01/17 03:39 WBC RBC Hgb Hct MCV MCH MCHC RDW Plt Count MPV Neut % (Auto) Lymph % (Auto) [place] % (Auto) Eos % (Auto) Baso % (Auto) Neut # (Auto) Lymph # (Auto) [place] # (Auto) Eos # (Auto) Baso # (Auto) Immature Gran % Nucleated RBC % Immature Gran # Nucleated RBCs # D-Dimer, Quantitative ABG pH ABG pCO2 ABG pO2 ABG HCO3 ABG Total CO2 ABG O2 Saturation ABG Base Excess Sodium 142 Potassium 4.5 Chloride 105 Carbon Dioxide 31 Anion Gap 10.5 BUN 35 H Creatinine 1.90 H GFR Calculation 24 BUN/Creatinine Ratio 18.00 Glucose 105 Calculated Osmolality 290.1 Calcium 9.6 Magnesium Ferritin 93.6 Total Bilirubin 1.10 H AST 15 ALT 22 Alkaline Phosphatase 81 Total Creatine Kinase CK-MB (CK-2) Troponin I B-Natriuretic Peptide Total Protein 6.5 Albumin 3.7 Globulin 2.8 Albumin/Globulin Ratio 1.3 Triglycerides Cholesterol LDL Cholesterol VLDL Cholesterol HDL Cholesterol Heart Disease Risk Ratio Free T4 TSH 3rd Generation Urine Color Urine Appearance Urine pH Ur Specific [place] Urine Protein Urine Glucose (UA) Urine Ketones Urine Blood Urine Nitrate Urine Bilirubin Urine Urobilinogen Urine Leukocytes Urine RBC Urine WBC Urine Bacteria Urine Mucus Ur Culture Indicated? - Diagnostic Findings Procedure: Chest x-ray: report reviewed by me - EKG EKG results: interpreted by me EKG shows: sinus rhythm <Tahmina Morel - Last Filed: 03/01/17 15:28> Assessment and Plan (1) Malignant hypertensive urgency Status: Acute Current Visit: Yes (2) Acute decompensated heart failure Status: Acute Current Visit: Yes (3) CAD (coronary artery disease) Status: Chronic Current Visit: Yes (4) Hypertension Status: Chronic Current Visit: Yes (5) Dyslipidemia Status: Chronic Current Visit: Yes (6) D-dimer, elevated Status: Chronic Current Visit: Yes (7) Leg pain, left Status: Chronic Current Visit: Yes (8) history recurrent DVT Status: Chronic Current Visit: Yes (9) chronic low back pain Status: Chronic Current Visit: Yes (10) abdominal aortic aneurysm Status: Chronic Current Visit: Yes (11) Chronic renal insufficiency Status: Acute Current Visit: Yes Exam (Progress Note) - Constitutional Vitals: Period Temp Pulse Resp BP Sys/Arteaga Pulse Ox Last 24 Hr 97.3 F-98.8 F 63-81 16-20 142-198/69-89 95-98 Result/EKG - Labs CBC & BMP: 03/01/17 03:39 03/01/17 03:39 Labs: Laboratory Results - last 24 hr 02/28/17 02/28/17 02/28/17 15:51 17:30 17:40 WBC RBC Hgb Hct MCV MCH MCHC RDW Plt Count MPV Neut % (Auto) Lymph % (Auto) [place] % (Auto) Eos % (Auto) Baso % (Auto) Neut # (Auto) Lymph # (Auto) [place] # (Auto) Eos # (Auto) Baso # (Auto) Immature Gran % Nucleated RBC % Immature Gran # Nucleated RBCs # Sodium Potassium Chloride Carbon Dioxide Anion Gap BUN Creatinine GFR Calculation BUN/Creatinine Ratio Glucose Calculated Osmolality Calcium Magnesium Ferritin Total Bilirubin AST ALT Alkaline Phosphatase Total Creatine Kinase 81 CK-MB (CK-2) 2.4 Troponin I 0.019 Total Protein Albumin Globulin Albumin/Globulin Ratio Triglycerides Cholesterol LDL Cholesterol VLDL Cholesterol HDL Cholesterol Heart Disease Risk Ratio Free T4 1.15 TSH 3rd Generation 0.951 Urine Color Straw Urine Appearance Clear Urine pH 6.0 Ur Specific [place] 1.006 Urine Protein Negative Urine Glucose (UA) Negative Urine Ketones Negative Urine Blood Negative Urine Nitrate Negative Urine Bilirubin Negative Urine Urobilinogen < 2.0 H Urine Leukocytes Negative Urine RBC 1 Urine WBC <1 Urine Bacteria Many Urine Mucus Occasional Ur Culture Indicated? Not indicated 02/28/17 03/01/17 03/01/17 21:28 00:47 03:39 WBC 8.5 RBC 3.78 L Hgb 11.5 L Hct 35.1 L MCV 92.9 MCH 30 MCHC 32.8 RDW 14.5 Plt Count 197 MPV 11.6 Neut % (Auto) 74.7 H Lymph % (Auto) 18.1 L [place] % (Auto) 6.4 Eos % (Auto) 0.2 Baso % (Auto) 0.2 Neut # (Auto) 6.4 Lymph # (Auto) 1.6 [place] # (Auto) 0.6 Eos # (Auto) 0.0 Baso # (Auto) 0.0 Immature Gran % 0.4 Nucleated RBC % 0.0 Immature Gran # 0.03 Nucleated RBCs # 0.00 Sodium Potassium Chloride Carbon Dioxide Anion Gap BUN Creatinine GFR Calculation BUN/Creatinine Ratio Glucose Calculated Osmolality Calcium Magnesium Ferritin Total Bilirubin AST ALT Alkaline Phosphatase Total Creatine Kinase CK-MB (CK-2) Troponin I 0.023 0.026 Total Protein Albumin Globulin Albumin/Globulin Ratio Triglycerides Cholesterol LDL Cholesterol VLDL Cholesterol HDL Cholesterol Heart Disease Risk Ratio Free T4 TSH 3rd Generation Urine Color Urine Appearance Urine pH Ur Specific [place] Urine Protein Urine Glucose (UA) Urine Ketones Urine Blood Urine Nitrate Urine Bilirubin Urine Urobilinogen Urine Leukocytes Urine RBC Urine WBC Urine Bacteria Urine Mucus Ur Culture Indicated? 03/01/17 03/01/17 03:39 03:39 WBC RBC Hgb Hct MCV MCH MCHC RDW Plt Count MPV Neut % (Auto) Lymph % (Auto) [place] % (Auto) Eos % (Auto) Baso % (Auto) Neut # (Auto) Lymph # (Auto) [place] # (Auto) Eos # (Auto) Baso # (Auto) Immature Gran % Nucleated RBC % Immature Gran # Nucleated RBCs # Sodium 142 142 Potassium 4.4 4.5 Chloride 106 105 Carbon Dioxide 29 31 Anion Gap 11.4 10.5 BUN 35 H 35 H Creatinine 2.00 H 1.90 H GFR Calculation 23 24 BUN/Creatinine Ratio 17.00 18.00 Glucose 106 105 Calculated Osmolality 290.1 290.1 Calcium 9.6 9.6 Magnesium 2.7 H Ferritin 93.6 Total Bilirubin 1.10 H AST 15 ALT 22 Alkaline Phosphatase 81 Total Creatine Kinase CK-MB (CK-2) Troponin I Total Protein 6.5 Albumin 3.7 Globulin 2.8 Albumin/Globulin Ratio 1.3 Triglycerides 118 Cholesterol 228 H LDL Cholesterol 166.0 VLDL Cholesterol 23.6 HDL Cholesterol 54 Heart Disease Risk Ratio 4.22 Free T4 TSH 3rd Generation Urine Color Urine Appearance Urine pH Ur Specific [place] Urine Protein Urine Glucose (UA) Urine Ketones Urine Blood Urine Nitrate Urine Bilirubin Urine Urobilinogen Urine Leukocytes Urine RBC Urine WBC Urine Bacteria Urine Mucus Ur Culture Indicated?
--- NOTE | 2017-03-01 14:53 | ECHO Report ---
Salome Lee Exam Date: 03/01/2017 10:30 Referring Physician: Technologist: cydney Enrique ARDMS, RVT Age: 86 Ht (in): 65 Wt (lb): 157 Gender: F Exam Location: [facility] Echo Indications: Chest pain, unspecified, Essential (primary) hypertension, CHF, COPD, LIN, S/P CABG, AAA, CAD, Dyslipidemia BP: 142 / 89 HR: 71 Rhythm: Sinus Technical Quality: IMPRESSIONS Preserved ejection fraction of 60% with no regional wall motion abnormality Severe concentric left ventricular hypertrophy Grade 1 diastolic dysfunction Mitral annular calcification Mild aortic insufficiency MEASUREMENTS (Male / Female) Normal Values 2D ECHO LV Diastolic Diameter PLAX 3.5 cm 4.2 - 5.9 / 3.9 - 5.3 cm LV Systolic Diameter PLAX 2.6 cm LV Fractional Shortening PLAX 27.3 % IVS Diastolic Thickness 1.8 cm 0.6 - 1.0 / 0.6 - 0.9 cm LVPW Diastolic Thickness 1.8 cm 0.6 - 1.0 / 0.6 - 0.9 cm RV Internal Dim ED PLAX 2.9 cm Aortic Root Diameter 3.3 cm LA Systolic Diameter LX 5.0 cm 3.0 - 4.0 / 2.7 - 3.8 cm FINDINGS Left Ventricle Overall ejection fraction is 60%. There is no regional wall motion abnormality. There is severe concentric left ventricular hypertrophy. Diastolic parameters are most consistent with grade 1 diastolic dysfunction impaired relaxation. Right Ventricle Right ventricular cavity is normal size structure and function Right Atrium Right atrium is enlarged Left Atrium Left atrium is enlarged Mitral Valve There is moderate to severe posterior mitral annular calcification the mitral valve is normal there is no demonstrable mitral regurgitation Aortic Valve Aortic valve is slightly sclerotic there is no stenosis. There is mild aortic insufficiency with a pressure half-time of greater than 500 ms Tricuspid Valve Tricuspid valve appears to be normal there is no demonstrable tricuspid regurgitation the study Pulmonic Valve Pulmonic valve is normal Pericardium Precordium is normal with no effusion Aorta The limited visualization of the thoracic aorta is normal Tahmina Morel (Electronically Signed) Final Date: 01 March 2017 14:51
[2017-03-01] MEDS: CITALOPRAM 20 MG TABLET PO SCH (20:58)
[2017-03-01] MEDS: ATORVASTATIN 40 MG TABLET PO SCH (20:58)
[2017-03-02 05:51] LABS: Basophils % 0.3 % (0.0-0.8); Eosinophils # 0.1 10*3/uL (0.0-0.87); Eosinophils % 0.7 % (0.00-10.9); Hematocrit 34.6 VOL% (35.7-47.0); Hemoglobin 11.6 GM/DL (12.0-16.0); Immature Granulocytes % 0.3 %; Immature Granulocytes Absolute 0.02 #; Lymphocytes # 1.8 10*3/uL (1.4-4.0); Lymphocytes % 26.6 % (21.3-54.2); Mean Corpuscular HGB Conc 33.5 GM/DL (32-36); Mean Corpuscular Hemoglobin 31 PG (27-34); Mean Corpuscular Volume 92.8 FL (87-102); Mean Platelet Volume 10.8 FL (9.6-12.0); Monocytes # 0.6 10*3/uL (0.11-0.8); Monocytes % 8.8 % (1.7-12.7); Neutrophils # 4.3 10*3/uL (1.4-7.4); Neutrophils % 63.3 % (38.7-73.9); Platelet Count 177 T/CUMM (130-400); Red Blood Count 3.73 MC/CUMM (3.8-5.5); Red Cell Distribution Width 14.3 % (9.3-17.3); White Blood Count 6.7 T/CUMM (4-12)
[2017-03-02 06:12] LABS: Calcium 9.3 MG/DL (8.5-10.1); Magnesium 2.8 MG/DL (1.8-2.4); Osmolality,Calculated 293.3 MOS/KG (273-304); Potassium 4.2 MMOL/L (3.5-5.1)
[2017-03-02] MEDS ORDERED: ENOXAPARIN 30 MG/0.3 ML SYRINGE SUBCUT SCH (09:00)
[2017-03-02] MEDS ORDERED: FUROSEMIDE 40 MG TABLET PO SCH (09:00)
[2017-03-02] MEDS ORDERED: ISOSORBIDE MONONITRATE 30 MG TABLET PO SCH (09:00)
--- NOTE | 2017-03-02 09:03 | Family Practice Progress Note ---
Family Practice - PN: Subj Interval history: Patient continues to improve. She has had a excellent diuresis overall. She denies any further chest pain. Her blood pressures are much better controlled today. her creatinine remained slightly elevated at 2.1. She denies any new complaints. HER lung marshall are clear to auscultation. She has been ambulating and sitting up in chair. If okay with cardiology will probably discharge later today. Exam (Progress Note) - Constitutional Vitals: Period Temp Pulse Resp BP Sys/Arteaga Pulse Ox Last 24 Hr 96.6 F-98.8 F 68-88 16-20 135-160/62-78 94-98 Results - Labs CBC & BMP: 03/02/17 05:35 03/02/17 05:35 Assessment and Plan (1) Congestive heart failure Status: Acute Assessment and plan: Acute onset last PM. Has elevated BNP with congestive heart failure noted on chest x-ray. Will start on diuretics and appropriate therapy Current Visit: Yes Qualifiers: Congestive heart failure type: diastolic (2) substernal chest pain Status: Acute Assessment and plan: Initial EKG and isoenzymes were negative for ischemia. We'll need to evaluate further. Current Visit: Yes (3) Hypertension Status: Chronic Assessment and plan: History of poorly controlled at present. We'll need to modify medications Current Visit: Yes (4) chronic obstructive pulmonary disease Status: Chronic Assessment and plan: Stable on present treatment plan Current Visit: Yes (5) obstructive sleep apnea Status: Chronic Assessment and plan: Stable at present Current Visit: Yes (6) s/p coronary artery bypass graft Status: Chronic Assessment and plan: Stable on present treatment plan Current Visit: Yes (7) history recurrent DVT Status: Chronic Assessment and plan: History of recurrent deep vein thrombosis Current Visit: Yes (8) abdominal aortic aneurysm Status: Chronic Assessment and plan: Stable at present Current Visit: Yes (9) CAD (coronary artery disease) Status: Chronic Assessment and plan: Stable on present treatment plan Current Visit: Yes (10) chronic low back pain Status: Chronic Assessment and plan: History of chronic low back pain stable at present. Said previous lumbar discectomy Current Visit: Yes (11) Dyslipidemia Status: Chronic Assessment and plan: Stable on present treatment plan Current Visit: Yes Specialty Discharge - Follow Up or Referrals Follow up with: Tahmina Morel DO [Physician] - (BMP (lab work) in Dr. Morel's office 03/07/17 @ 10:10AM Appt with Dr. Morel in 3 weeks - 03/22/17 @ 9:00AM)
--- NOTE | 2017-03-02 09:04 | Cardiology Progress Note ---
Assessment and Plan (1) Acute renal insufficiency Status: Acute Assessment and plan: SEE PLAN OF CARE LISTED BELOW. Current Visit: Yes (2) Congestive heart failure Status: Acute Assessment and plan: SEE PLAN OF CARE LISTED BELOW. Current Visit: Yes Qualifiers: Congestive heart failure type: diastolic (3) CAD (coronary artery disease) Status: Chronic Assessment and plan: SEE PLAN OF CARE LISTED BELOW. Current Visit: Yes (4) D-dimer, elevated Status: Acute Assessment and plan: SEE PLAN OF CARE LISTED BELOW. Current Visit: Yes (5) Dyslipidemia Status: Chronic Assessment and plan: SEE PLAN OF CARE LISTED BELOW. Current Visit: Yes (6) Hypertension Status: Chronic Assessment and plan: SEE PLAN OF CARE LISTED BELOW. Current Visit: Yes (7) Leg pain, left Status: Chronic Assessment and plan: SEE PLAN OF CARE LISTED BELOW. Current Visit: Yes (8) chronic low back pain Status: Chronic Assessment and plan: SEE PLAN OF CARE LISTED BELOW. Current Visit: Yes Cardiology - PN: Subj Interval history: RV SERVICER: DR. SUE SUMMARY: Ms. Lee, 86WM, with a past medical history of coronary artery disease (S/P CABG 1999 Dr. Diego), hypertension, dyslipidemia, PVD (AAA followed by Dr. Schwab), CHF, DVT left lower extremity approximately 4-5 years ago for which she took Coumadin for at least 6 months without recurrence. Admitted February 28, 2017 for acute CHF, hypertensive urgency. MARCH 02, 2017: Patient was seen and examined on the telemetry unit. She is sitting up in bed in no acute distress. She is anxious for discharge home. She reports that her breathing has dramatically improved and feels that it is back to baseline. No longer tachypnic. Overnight, patient has lost 2 kg. She continues to diurese well after transition to p.o. diuretics. Labs are stable, creatinine increased from 1.9 to 2.1. Her transthoracic echo showed severe LVH with preserved left ventricular ejection fraction. There is no tricuspid regurgitation demonstrated estimated right-sided pressures. She has no significant valvular abnormalities. Her blood pressure remains slightly elevated, systolic blood pressure ranging 140's to 150's. However, her blood pressure should not yet be controlled as we just added amlodipine yesterday. Will further discuss with Dr. Morel and await additional recommendations. From a cardiac standpoint patient is stable for discharge home. Recommend that patient keep a blood pressure log and follow-up with Dr. payan in 1 week with BMP and magnesium. ASSESSMENT/PLAN: 1. ACUTE CHF - Secondary to diastolic dysfunction and uncontrolled hypertension. Patient has diuresed well and seems to be compensated at this point. Lasix was transitioned to p.o. yesterday, patient tolerated well. 2. KNOWN CAD S/P CABG 1998 - unfortunately, do not have access to CABG records. Continue to treat with beta-brooke, ARB, lipid-lowering agent, aspirin, nitrates. 3. HYPERTENSION - better controlled on Coreg, Amlodipine, ARB. Instructed patient to keep blood pressure log at discharge. If blood pressure remains suboptimally controlled at follow-up appointment, Norvasc can be increased at that time 4. DYSLIPIDEMIA - LDL 166. Atorvastatin was initiated last evening. 5. PVD - history of AAA followed by Dr. Schwab. Reports recent study in the past 6 months and was deemed "stable". 6. ABNORMAL EKG - Right bundle branch block of unknown duration 7. ELEVATED D-DIMER - venous ultrasound lower extremity reveals no DVT. May be related to her creatinine elevation. 8. ACUTE RENAL FAILURE, STAGE IV - Creatinine 2.1 this morning. 1.6 upon admission. I suspect she was a component of CKD though I have no records to support. Patient will be given a follow-up with Dr. Sue in 1 week with BMP. Patient's medications have been reviewed. No nephrotoxic medications noted per Exam (Progress Note) - Constitutional Vitals: Period Temp Pulse Resp BP Sys/[place] Pulse Ox Last 24 Hr 96.6 F-98.8 F 68-88 16-20 135-160/62-83 94-98 Exam: General: Appears well with no apparent distress. Pleasant and cooperative. Appears comfortable. HEENT: PERRL, normocephalic, atraumatic. Mucous membranes moist. No jaundice noted. Conjunctiva moist and clear, sclerae anicteric Neck: No JVD/HJR, no thyromegaly or lymphadenopathy noted. No carotid bruit appreciated Cardiac: Regular rate and rhythm. Lungs: Clear to auscultation, decreased breath sounds in bilateral bases. Without accessory muscle use to assist the respiratory pattern. Abdomen: Soft, bowel sounds normoactive. Nontender and nondistended. Extremities: No clubbing, cyanosis noted. No edema noted. Upper extremity pulses 2+. Lower extremity pulses 2+. Capillary refill less than 3 seconds. Skin: No unusual lesions or rashes. No skin breakdown appreciated. Neuro: Awake, alert and oriented 3. Moves all extremities well without hemiparesis or paralysis. No essential tremor is appreciated. Result/EKG - Labs CBC & BMP: 03/02/17 05:35 03/02/17 05:35 Lab Results: I have reviewed the past 24 hour labs Labs: Laboratory Results - last 24 hr 03/02/17 03/02/17 05:35 05:35 WBC 6.7 RBC 3.73 L Hgb 11.6 L Hct 34.6 L MCV 92.8 MCH 31 MCHC 33.5 RDW 14.3 Plt Count 177 MPV 10.8 Neut % (Auto) 63.3 Lymph % (Auto) 26.6 [place] % (Auto) 8.8 Eos % (Auto) 0.7 Baso % (Auto) 0.3 Neut # (Auto) 4.3 Lymph # (Auto) 1.8 [place] # (Auto) 0.6 Eos # (Auto) 0.1 Baso # (Auto) 0.0 Immature Gran % 0.3 Nucleated RBC % 0.0 Immature Gran # 0.02 Nucleated RBCs # 0.00 Sodium 141 Potassium 4.2 Chloride 105 Carbon Dioxide 27 Anion Gap 13.2 BUN 46 H Creatinine 2.10 H GFR Calculation 21 BUN/Creatinine Ratio 21.00 H Glucose 110 H Calculated Osmolality 293.3 Calcium 9.3 Magnesium 2.8 H Specialty Discharge - Follow Up or Referrals Follow up with: Sidney Sue MD [Physician] - 1 Week (Patient will need to follow-up with Dr. Sue in 2 weeks with BMP and mag.)
[2017-03-02] MEDS: MULTIVITAMIN (CENTRUM) TABLET PO SCH (09:07)
[2017-03-02] MEDS: ASPIRIN EC 81 MG TABLET PO SCH (09:07)
[2017-03-02] MEDS: PANTOPRAZOLE 40 MG TABLET PO SCH (09:07)
[2017-03-02] MEDS: CARVEDILOL 25 MG TABLET PO SCH (09:07)
[2017-03-02] MEDS: IRBESARTAN 150 MG TABLET PO SCH (09:07)
[2017-03-02] MEDS: IRON (CARBONYL)/VIT C/B12/FA TABLET PO SCH (09:07)
[2017-03-02] MEDS: POTASSIUM CHLORIDE 20 MEQ TABLET PO SCH (09:08)
[2017-03-02] MEDS: BRIMONIDINE/TIMOLOL OPH SOLN 5 ML BOTTLE BOTH EYES SCH (09:08)
[2017-03-02] MEDS: MAGNESIUM OXIDE 400 MG TABLET PO SCH (09:08)
[2017-03-02] MEDS: DOCUSATE SODIUM 100 MG CAPSULE PO SCH (09:08)
[2017-03-02] MEDS: amLODIPine 5 MG TABLET PO SCH (09:08)
--- NOTE | 2017-03-02 11:37 | Discharge Summary ---
Hospital Course - Hospital Course Hospital Course: Patient presented to the emergency department complaining of shortness of breath upon waking this morning. Family members reported she was having some shortness of breath yesterday evening and during the night however, patient did not recognize having shortness of breath last evening this morning, around 0530 , she began to feel a heaviness in center of her chest without radiation, and a smothering sensation. She became significantly short of breath with two-pillow orthopnea.Her Chest pain lasted approximately 30 minutes. She can identify no aggravating factors nor any alleviating factors. Patient reports she is fairly active at home, taking care of her ADLs without complaints of chest pain, heaviness or tightness. She has mild chronic shortness of breath due to chronic obstructive pulmonary disease. Upon arrival in the emergency department , she was discovered to have significantly elevated blood pressures averaging 200s/100s. Her [id number] reports that she normally has much better control of her blood pressure. Chest x-ray revealed bibasilar pulmonary edema. First troponin is negative. ProBNP 1548, creatinine 1.6. EKG reveals a right bundle branch block, abnormal EKG. Patient has been given IV Lasix and has diuresed around 800 mL. in view of history patient is being admitted for further evaluation and therapy HOSPITAL COURSE -the patient was admitted to hospital lab and x -ray studies obtained. Her admission chest x-ray was consistent with congestive heart failure. Her BNP on admission was 1548. She was started on appropriate diuretics and medications. Blood pressures were excessively elevated and was treated aggressively for hypertension. Patient was seen in consultation by Dr. Martinez. Her cardiac isoenzymes remain normal. Cardiac echo revealed severe left ventricular hypertrophy with an ejection fraction of 60%. Patient had a excellent diuresis over time. Her blood pressures have come under adequate control. Her creatinine has remained elevated at 2.1 time of discharge. Patient is tolerating diet and activity and medications. Cardiology has seen patient today and feels that she stable for discharge. They plan to see her clinic for follow-up. I will also arrange follow-up and reevaluate general lab and blood pressure at that time. Will have patient call or come to the emergency room if condition worsens or new problems develop. 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 Morel's office 03/07/17 @ 10:10AM Appt with Dr. Morel in 3 weeks - 03/22/17 @ 9:00AM) Murphy Man DO [Physician] - 2 Weeks Discharge Plan - Discharge Data Condition at Discharge: Stable Discharge Diet: advance to your usual diet Activity: ambulate only with your walker Weight Bearing at Discharge: weight bear as tolerated Contact your physician if you experience:: Nausea/Vomiting, Shortness of breath - Discharge Medications New amLODIPine [Norvasc] 5 mg PO DAILY #30 tablet Atorvastatin [Lipitor] 40 mg PO BEDTIME #30 tablet Isosorbide Mononitrate [Imdur] 30 mg PO DAILY #30 tablet Continue Furosemide Tab [Lasix Tab] 1 - 2 tablet PO DAILY PRN PRN Reason: Edema Multivitamin [Multivitamins] 1 each PO DAILY Pantoprazole Tab [Protonix Tab] 40 mg PO DAILY Citalopram [CeleXA] 30 mg PO BEDTIME Aspirin [Ecotrin] 81 mg PO DAILY Celecoxib [Celebrex] 200 mg PO BID Carvedilol [Coreg] 25 mg PO BID Iron,Carbonyl/Ascorbic Acid [Icar-C Tablet] 1 each PO DAILY Brimonidine/Timolol Oph Soln [Combigan] 1 drop BOTH EYES DAILY Albuterol/Ipratropium Neb [Duoneb] 3 ml RESP TX RT Q6H PRN PRN Reason: Shortness Of Breath/Wheezing Irbesartan 75 mg PO DAILY - Follow Up or Referral Follow Up: Tahmina Morel DO [Physician] - (BMP (lab work) in Dr. Morel's office 03/07/17 @ 10:10AM Appt with Dr. Morel in 3 weeks - 03/22/17 @ 9:00AM) Murphy Man DO [Physician] - 2 Weeks - Forms/Instructions Exam - Constitutional Vitals: Period Temp Pulse Resp BP Sys/Arteaga Pulse Ox Last 24 Hr 96.6 F-98.8 F 68-88 16-20 135-160/62-83 94-98 General appearance: no acute distress - Head Head exam: Present: normal inspection - Eye Pupils: Present: JENNY - ENT ENT exam: Present: normal exam - Neck Neck exam: Present: normal inspection - Respiratory Respiratory exam: Present: clear to auscultation bilaterally - Cardiovascular Cardiovascular exam: Present: irregular rhythm - GI/Abdominal GI/Abdominal exam: Present: normal bowel sounds, soft - Extremities Exam Extremities exam: Present: full ROM - Back Exam Back exam: Present: normal inspection - Neurological Exam Neurological exam: Present: alert - Psychiatric Psychiatric exam: Present: normal affect - Skin Skin exam: Present: normal color Discharge Results Procedures and tests throughout hospitalization: Pending Orders 03/03/17 04:00 Basic Metabolic Panel IN AM Comp Blood Count Auto Diff IN AM Labs on day of discharge: Labs from last 24 hours 03/02/17 03/02/17 05:35 05:35 WBC 6.7 RBC 3.73 L Hgb 11.6 L Hct 34.6 L MCV 92.8 MCH 31 MCHC 33.5 RDW 14.3 Plt Count 177 MPV 10.8 Neut % (Auto) 63.3 Lymph % (Auto) 26.6 [place] % (Auto) 8.8 Eos % (Auto) 0.7 Baso % (Auto) 0.3 Neut # (Auto) 4.3 Lymph # (Auto) 1.8 [place] # (Auto) 0.6 Eos # (Auto) 0.1 Baso # (Auto) 0.0 Immature Gran % 0.3 Nucleated RBC % 0.0 Immature Gran # 0.02 Nucleated RBCs # 0.00 Sodium 141 Potassium 4.2 Chloride 105 Carbon Dioxide 27 Anion Gap 13.2 BUN 46 H Creatinine 2.10 H GFR Calculation 21 BUN/Creatinine Ratio 21.00 H Glucose 110 H Calculated Osmolality 293.3 Calcium 9.3 Magnesium 2.8 H DS: Provider Date of admission: 03/01/17 10:52 Primary care physician: . No PCP Attending physician on admission: Murphy Man DO Consults: 02/28/17 12:51 Consult to Case Mgmt/Social Srvs [CONS] Routine Reason for Case Mgmt/Social Srvs: Discharge Planning Consult to Physician [CONS] Routine Comment: CHF Consulting Provider: Tahmina Morel When should Consulting Provider be notified: Now Consult to Specialist Group: Cardiology Person Notified: SHAYY Date Notified: 02/28/17 Time Notified: 15:10 Discharging clinician: Murphy Man DO
[2017-03-02 11:48] VITALS: BP 117/55
== END 2017-03-02 13:27 | disposition home or self-care (01) | DRG 292 ==
LOC: N.ED 11:21 → N.EDINP 11:21 → N.TELEN 13:14
PROVIDERS: ADMIT Family Medicine; ATTEND Family Medicine

== ENCOUNTER 2018-07-29 13:40 | Inpatient (IN) ==
[2018-07-29] MEDS ORDERED: ONDANSETRON 4 MG/2 ML VIAL IV STA (13:53)
[2018-07-29 14:35] LABS: Basophils % 0.1 % (0.0-0.8); Eosinophils % 0.1 % (0.00-10.9); Hematocrit 32.2 VOL% (35.7-47.0); Hemoglobin 10.5 GM/DL (12.0-16.0); Immature Granulocytes % 0.7 %; Immature Granulocytes Absolute 0.09 #; Lymphocytes # 0.8 10*3/uL (1.4-4.0); Lymphocytes % 5.8 % (21.3-54.2); Mean Corpuscular HGB Conc 32.6 GM/DL (32-36); Mean Corpuscular Hemoglobin 31 PG (27-34); Mean Platelet Volume 10.6 FL (9.6-12.0); Monocytes # 0.5 10*3/uL (0.11-0.8); Monocytes % 4.1 % (1.7-12.7); Neutrophils # 11.8 10*3/uL (1.4-7.4); Neutrophils % 89.2 % (38.7-73.9); Platelet Count 178 T/CUMM (130-400); Red Blood Count 3.39 MC/CUMM (3.8-5.5); White Blood Count 13.3 T/CUMM (4-12)
[2018-07-29] MEDS ORDERED: ONDANSETRON 4 MG/2 ML VIAL IV PRN (14:38)
[2018-07-29] MEDS ORDERED: ACETAMINOPHEN 325 MG TABLET PO PRN (14:38)
[2018-07-29] MEDS ORDERED: MORPHINE 4 MG/1 ML VIAL IV PRN (14:38)
[2018-07-29 15:00] LABS: Calcium 8.8 MG/DL (8.5-10.1); Osmolality,Calculated 294.3 MOS/KG (273-304); Potassium 4.1 MMOL/L (3.5-5.1)
[2018-07-29] MEDS ORDERED: INFLUENZA VIRUS VACCINE 0.5 ML SYRINGE IM ONE (17:15)
[2018-07-29 17:53] LABS: Apearance,Urine CLEAR (Clear); Bacteria,Urine Occasional /HPF (Few); Bilirubin,Urine Negative (Negative); Blood, Urine Negative (Negative); Glucose,Urine (UA) Negative (Negative); Hyaline Casts,Urine 4 /LPF (0-3); Ketones,Urine Negative (Negative); Mucus,Urine Occasional /LPF (Occasional); Nitrite,Urine Negative (Negative); Protein,Urine Negative; Squamous Epithelial Cell,Urine Occasional /HPF (0-10); Urine Color Yellow (Yellow); Urine Specific Gravity 1.011 (1.001-1.035); Urine Urobilinogen < 2.0 EU/DL (0.2-1.0); WBC,Urine <1 /HPF (0-6)
[2018-07-29] MEDS ORDERED: ALBUTEROL/IPRATROPIUM 3 ML NEB RESP TX PRN (18:04)
[2018-07-29] MEDS: SODIUM CHLORIDE 0.9% 1,000 ML IV SCH (18:34)
[2018-07-29] MEDS: DOCUSATE SODIUM 100 MG CAPSULE PO SCH (21:03)
[2018-07-29] MEDS: CARVEDILOL 25 MG TABLET PO SCH (21:03)
[2018-07-29] MEDS: CITALOPRAM 20 MG TABLET PO SCH (21:03)
[2018-07-29] MEDS: ATORVASTATIN 40 MG TABLET PO SCH (21:03)
[2018-07-29] MEDS: BRIMONIDINE/TIMOLOL OPH SOLN 5 ML BOTTLE RIGHT EYE SCH (21:03)
[2018-07-29] MEDS: amLODIPine 5 MG TABLET PO SCH (21:03)
[2018-07-29] MEDS: MORPHINE 4 MG/1 ML VIAL IV PRN (21:06)
[2018-07-30] MEDS: SODIUM CHLORIDE 0.9% 1,000 ML IV SCH ×4 (00:01→18:38)
[2018-07-30 04:43] LABS: Basophils % 0.2 % (0.0-0.8); Eosinophils # 0.1 10*3/uL (0.0-0.87); Eosinophils % 0.9 % (0.00-10.9); Hematocrit 28.2 VOL% (35.7-47.0); Hemoglobin 8.9 GM/DL (12.0-16.0); Immature Granulocytes % 0.3 %; Immature Granulocytes Absolute 0.02 #; Lymphocytes # 1.4 10*3/uL (1.4-4.0); Lymphocytes % 21.4 % (21.3-54.2); Mean Corpuscular HGB Conc 31.6 GM/DL (32-36); Mean Corpuscular Hemoglobin 31 PG (27-34); Mean Corpuscular Volume 97.2 FL (87-102); Mean Platelet Volume 11.1 FL (9.6-12.0); Monocytes # 0.7 10*3/uL (0.11-0.8); Monocytes % 10.4 % (1.7-12.7); Neutrophils # 4.4 10*3/uL (1.4-7.4); Neutrophils % 66.8 % (38.7-73.9); Platelet Count 137 T/CUMM (130-400); Red Cell Distribution Width 14.2 % (9.3-17.3); White Blood Count 6.5 T/CUMM (4-12)
[2018-07-30] MEDS: MORPHINE 4 MG/1 ML VIAL IV PRN ×4 (05:16→21:20)
[2018-07-30 05:24] LABS: Albumin 2.9 G/DL (3.4-5.0); Bilirubin,Total 0.9 MG/DL (0.2-1.0); Calcium 8.4 MG/DL (8.5-10.1); Ferritin 181.3 ng/ml (8-252); Free T4 (Free Thyroxine) 1.2 NG/DL (0.76-1.46); Osmolality,Calculated 294.8 MOS/KG (273-304); Potassium 3.7 MMOL/L (3.5-5.1); Risk Ratio 2.14; Thyroid Stimulating Hormone 0.661 uIU/ml (0.358-3.74); Total Protein 5.9 G/DL (6.4-8.3); VLDL CHOLESTEROL 13.4 MG/DL
[2018-07-30] MEDS: ISOSORBIDE MONONITRATE 30 MG TABLET PO SCH (08:09)
[2018-07-30] MEDS: CARVEDILOL 25 MG TABLET PO SCH ×2 (08:09→17:08)
[2018-07-30] MEDS: MULTIVITAMIN (CENTRUM) TABLET PO SCH (08:40)
[2018-07-30] MEDS: DOCUSATE SODIUM 100 MG CAPSULE PO SCH ×2 (08:41→20:45)
[2018-07-30] MEDS: FUROSEMIDE 40 MG TABLET PO SCH (08:41)
[2018-07-30] MEDS: COLCHICINE 0.6 MG TABLET PO SCH (08:41)
[2018-07-30] MEDS: PANTOPRAZOLE 40 MG TABLET PO SCH (08:42)
[2018-07-30] MEDS ORDERED: CLINDAMYCIN INJ 900 MG in PREMIX 1 EACH IV ONE (09:00)
[2018-07-30] MEDS ORDERED: BUPIVACAINE SPINAL 0.75% 2 ML AMP SPINAL ONE (10:20)
[2018-07-30] MEDS ORDERED: PROPOFOL 200 MG/20 ML VIAL IV ONE (12:43)
[2018-07-30] MEDS ORDERED: KETAMINE 500 MG/10 ML VIAL ONE (12:44)
[2018-07-30] MEDS ORDERED: fentaNYL 100 MCG/2 ML VIAL ONE (12:44)
[2018-07-30] MEDS ORDERED: KETOROLAC 30 MG/1 ML VIAL ONE (12:44)
[2018-07-30] MEDS ORDERED: SODIUM CHLORIDE 0.9% 250 ML IV ONE (12:44)
[2018-07-30] MEDS ORDERED: PROMETHAZINE 25 MG/1 ML VIAL IM PRN (13:02)
[2018-07-30] MEDS ORDERED: BISACODYL 10 MG SUPP RECTAL PRN (13:02)
[2018-07-30] MEDS ORDERED: MAGNESIUM HYDROXIDE SUSP 30 ML UDCUP PO PRN (13:02)
[2018-07-30] MEDS ORDERED: LACTULOSE 20 GM/30 ML UDCUP PO PRN (13:02)
[2018-07-30] MEDS ORDERED: SODIUM CHLORIDE 0.9% 1,000 ML IV SCH (18:00)
[2018-07-30] MEDS: SODIUM CHLOR 0.9% KCL 20 MEQ 20 MEQ/1,000 ML BAG IV SCH (18:21)
[2018-07-30] MEDS: CLINDAMYCIN INJ 900 MG in PREMIX 1 EACH IV SCH (18:21)
[2018-07-30] MEDS: ATORVASTATIN 40 MG TABLET PO SCH (20:45)
[2018-07-30] MEDS: BRIMONIDINE/TIMOLOL OPH SOLN 5 ML BOTTLE RIGHT EYE SCH (20:45)
[2018-07-30] MEDS: CELECOXIB 200 MG CAPSULE PO SCH (20:45)
[2018-07-30] MEDS: CITALOPRAM 20 MG TABLET PO SCH (20:45)
[2018-07-30] MEDS: amLODIPine 5 MG TABLET PO SCH (20:49)
[2018-07-31] MEDS: CLINDAMYCIN INJ 900 MG in PREMIX 1 EACH IV SCH (02:51)
[2018-07-31] MEDS: MORPHINE 4 MG/1 ML VIAL IV PRN ×2 (03:28→12:56)
[2018-07-31] MEDS: SODIUM CHLOR 0.9% KCL 20 MEQ 20 MEQ/1,000 ML BAG IV SCH ×2 (05:25→20:50)
[2018-07-31 06:17] LABS: Basophils % 0.1 % (0.0-0.8); Eosinophils # 0.1 10*3/uL (0.0-0.87); Eosinophils % 1.1 % (0.00-10.9); Hematocrit 23.8 VOL% (35.7-47.0); Hemoglobin 7.4 GM/DL (12.0-16.0); Immature Granulocytes % 0.4 %; Immature Granulocytes Absolute 0.03 #; Lymphocytes # 0.9 10*3/uL (1.4-4.0); Lymphocytes % 12.1 % (21.3-54.2); Mean Corpuscular HGB Conc 31.1 GM/DL (32-36); Mean Corpuscular Hemoglobin 31 PG (27-34); Mean Corpuscular Volume 99.6 FL (87-102); Mean Platelet Volume 11.5 FL (9.6-12.0); Monocytes # 0.7 10*3/uL (0.11-0.8); Monocytes % 9.9 % (1.7-12.7); Neutrophils # 5.6 10*3/uL (1.4-7.4); Neutrophils % 76.4 % (38.7-73.9); Platelet Count 111 T/CUMM (130-400); Red Blood Count 2.39 MC/CUMM (3.8-5.5); Red Cell Distribution Width 14.4 % (9.3-17.3); White Blood Count 7.3 T/CUMM (4-12)
[2018-07-31 06:34] LABS: Calcium 7.9 MG/DL (8.5-10.1); Osmolality,Calculated 293.8 MOS/KG (273-304); Potassium 3.9 MMOL/L (3.5-5.1)
[2018-07-31] MEDS ORDERED: SODIUM CHLORIDE 0.9% 1,000 ML IV PRN (08:07)
[2018-07-31 08:42] LABS: Hemoglobin 7.7 GM/DL (12.0-16.0)
[2018-07-31] MEDS: IRON (CARBONYL)/VIT C/B12/FA TABLET PO SCH (10:21)
[2018-07-31] MEDS: PANTOPRAZOLE 40 MG TABLET PO SCH ×2 (10:22→10:31)
[2018-07-31] MEDS: CARVEDILOL 12.5 MG TABLET PO SCH ×2 (10:22→20:48)
[2018-07-31] MEDS: ASPIRIN EC 81 MG TABLET PO SCH (10:24)
[2018-07-31] MEDS: CELECOXIB 200 MG CAPSULE PO SCH ×2 (10:24→20:48)
[2018-07-31] MEDS: MULTIVITAMIN (CENTRUM) TABLET PO SCH (10:24)
[2018-07-31] MEDS: ISOSORBIDE MONONITRATE 30 MG TABLET PO SCH (10:24)
[2018-07-31] MEDS: COLCHICINE 0.6 MG TABLET PO SCH (10:26)
[2018-07-31] MEDS: DOCUSATE SODIUM 100 MG CAPSULE PO SCH ×2 (10:28→20:48)
[2018-07-31] MEDS: FUROSEMIDE 40 MG TABLET PO SCH (13:05)
[2018-07-31] MEDS: CARVEDILOL 25 MG TABLET PO SCH (13:35)
[2018-07-31] MEDS: ATORVASTATIN 40 MG TABLET PO SCH (20:48)
[2018-07-31] MEDS: BRIMONIDINE/TIMOLOL OPH SOLN 5 ML BOTTLE RIGHT EYE SCH (20:48)
[2018-07-31] MEDS: amLODIPine 5 MG TABLET PO SCH (20:48)
[2018-07-31] MEDS: CITALOPRAM 20 MG TABLET PO SCH (20:48)
[2018-08-01] MEDS: SODIUM CHLOR 0.9% KCL 20 MEQ 20 MEQ/1,000 ML BAG IV SCH ×3 (02:50→20:25)
[2018-08-01 04:00] LABS: Basophils % 0.2 % (0.0-0.8); Eosinophils # 0.1 10*3/uL (0.0-0.87); Eosinophils % 0.9 % (0.00-10.9); Hematocrit 28.2 VOL% (35.7-47.0); Hemoglobin 9.1 GM/DL (12.0-16.0); Immature Granulocytes % 0.6 %; Immature Granulocytes Absolute 0.06 #; Lymphocytes # 1.3 10*3/uL (1.4-4.0); Lymphocytes % 13.3 % (21.3-54.2); Mean Corpuscular HGB Conc 32.3 GM/DL (32-36); Mean Corpuscular Hemoglobin 31 PG (27-34); Mean Corpuscular Volume 96.9 FL (87-102); Mean Platelet Volume 11.7 FL (9.6-12.0); Monocytes # 0.9 10*3/uL (0.11-0.8); Monocytes % 9.4 % (1.7-12.7); Neutrophils # 7.1 10*3/uL (1.4-7.4); Neutrophils % 75.6 % (38.7-73.9); Platelet Count 105 T/CUMM (130-400); Red Blood Count 2.91 MC/CUMM (3.8-5.5); Red Cell Distribution Width 15.6 % (9.3-17.3); White Blood Count 9.4 T/CUMM (4-12)
[2018-08-01 04:20] LABS: Calcium 7.9 MG/DL (8.5-10.1); Potassium 4.2 MMOL/L (3.5-5.1)
[2018-08-01] MEDS: DOCUSATE SODIUM 100 MG CAPSULE PO SCH ×2 (10:52→20:24)
[2018-08-01] MEDS: CELECOXIB 200 MG CAPSULE PO SCH ×2 (10:52→20:25)
[2018-08-01] MEDS: COLCHICINE 0.6 MG TABLET PO SCH (10:52)
[2018-08-01] MEDS: ISOSORBIDE MONONITRATE 30 MG TABLET PO SCH (10:55)
[2018-08-01] MEDS: CARVEDILOL 12.5 MG TABLET PO SCH ×2 (10:55→20:24)
[2018-08-01] MEDS: MULTIVITAMIN (CENTRUM) TABLET PO SCH (10:56)
[2018-08-01] MEDS: ASPIRIN EC 81 MG TABLET PO SCH (10:56)
[2018-08-01] MEDS: FUROSEMIDE 40 MG TABLET PO SCH (10:56)
[2018-08-01] MEDS: PANTOPRAZOLE 40 MG TABLET PO SCH ×2 (10:56→11:00)
[2018-08-01] MEDS: MORPHINE 4 MG/1 ML VIAL IV PRN (13:03)
[2018-08-01] MEDS: BRIMONIDINE/TIMOLOL OPH SOLN 5 ML BOTTLE RIGHT EYE SCH (20:24)
[2018-08-01] MEDS: CITALOPRAM 20 MG TABLET PO SCH (20:24)
[2018-08-01] MEDS: amLODIPine 5 MG TABLET PO SCH (20:24)
[2018-08-01] MEDS: ATORVASTATIN 40 MG TABLET PO SCH (20:25)
[2018-08-02] MEDS: MORPHINE 4 MG/1 ML VIAL IV PRN (08:41)
[2018-08-02] MEDS: SODIUM CHLOR 0.9% KCL 20 MEQ 20 MEQ/1,000 ML BAG IV SCH ×2 (08:42→18:33)
[2018-08-02] MEDS: CELECOXIB 200 MG CAPSULE PO SCH ×2 (08:42→21:01)
[2018-08-02] MEDS: MULTIVITAMIN (CENTRUM) TABLET PO SCH (08:42)
[2018-08-02] MEDS: DOCUSATE SODIUM 100 MG CAPSULE PO SCH ×2 (08:42→21:01)
[2018-08-02] MEDS: FUROSEMIDE 40 MG TABLET PO SCH (08:42)
[2018-08-02] MEDS: ASPIRIN EC 81 MG TABLET PO SCH (08:42)
[2018-08-02] MEDS: CARVEDILOL 12.5 MG TABLET PO SCH ×2 (08:42→21:01)
[2018-08-02] MEDS: IRON (CARBONYL)/VIT C/B12/FA TABLET PO SCH (08:42)
[2018-08-02] MEDS: PANTOPRAZOLE 40 MG TABLET PO SCH ×2 (08:42→10:00)
[2018-08-02] MEDS: COLCHICINE 0.6 MG TABLET PO SCH (08:42)
[2018-08-02] MEDS: ISOSORBIDE MONONITRATE 30 MG TABLET PO SCH (08:42)
[2018-08-02] MEDS ORDERED: PHENOL 1.4% THROAT SPRAY 177 ML BOTTLE PO SCH (08:58)
[2018-08-02] MEDS ORDERED: MEPERIDINE 25 MG/1 ML VIAL IV SCH (09:00)
[2018-08-02] MEDS ORDERED: diphenhydrAMINE 50 MG/1 ML VIAL IV ONE (09:08)
[2018-08-02] MEDS ORDERED: diphenhydrAMINE CAP 25 MG CAPSULE PO PRN (09:09)
[2018-08-02] MEDS ORDERED: PHENOL 1.4% THROAT SPRAY 177 ML BOTTLE PO PRN (10:08)
[2018-08-02] MEDS: MEPERIDINE 25 MG/1 ML VIAL IV PRN (14:34)
[2018-08-02] MEDS: CITALOPRAM 20 MG TABLET PO SCH (21:00)
[2018-08-02] MEDS: amLODIPine 5 MG TABLET PO SCH (21:01)
[2018-08-02] MEDS: ATORVASTATIN 40 MG TABLET PO SCH (21:01)
[2018-08-02] MEDS: BRIMONIDINE/TIMOLOL OPH SOLN 5 ML BOTTLE RIGHT EYE SCH (21:01)
[2018-08-03 05:53] LABS: Basophils % 0.3 % (0.0-0.8); Eosinophils # 0.2 10*3/uL (0.0-0.87); Hematocrit 29.1 VOL% (35.7-47.0); Hemoglobin 9.1 GM/DL (12.0-16.0); Immature Granulocytes % 0.3 %; Immature Granulocytes Absolute 0.02 #; Lymphocytes # 1.1 10*3/uL (1.4-4.0); Lymphocytes % 18.7 % (21.3-54.2); Mean Corpuscular HGB Conc 31.3 GM/DL (32-36); Mean Corpuscular Hemoglobin 30 PG (27-34); Mean Corpuscular Volume 97.3 FL (87-102); Mean Platelet Volume 11.2 FL (9.6-12.0); Monocytes # 0.5 10*3/uL (0.11-0.8); Monocytes % 8.3 % (1.7-12.7); Neutrophils # 4.2 10*3/uL (1.4-7.4); Neutrophils % 69.4 % (38.7-73.9); Platelet Count 120 T/CUMM (130-400); Red Blood Count 2.99 MC/CUMM (3.8-5.5); Red Cell Distribution Width 15.5 % (9.3-17.3)
[2018-08-03 06:24] LABS: Calcium 8.2 MG/DL (8.5-10.1); Osmolality,Calculated 295.4 MOS/KG (273-304); Potassium 4.6 MMOL/L (3.5-5.1)
[2018-08-03] MEDS: MEPERIDINE 25 MG/1 ML VIAL IV PRN ×2 (06:24→18:44)
[2018-08-03] MEDS: SODIUM CHLOR 0.9% KCL 20 MEQ 20 MEQ/1,000 ML BAG IV SCH ×2 (06:26→15:14)
[2018-08-03] MEDS: MULTIVITAMIN (CENTRUM) TABLET PO SCH (09:05)
[2018-08-03] MEDS: CARVEDILOL 12.5 MG TABLET PO SCH ×2 (09:05→20:43)
[2018-08-03] MEDS: PANTOPRAZOLE 40 MG TABLET PO SCH ×2 (09:05→09:06)
[2018-08-03] MEDS: CELECOXIB 200 MG CAPSULE PO SCH ×2 (09:05→20:43)
[2018-08-03] MEDS: ISOSORBIDE MONONITRATE 30 MG TABLET PO SCH (09:05)
[2018-08-03] MEDS: FUROSEMIDE 40 MG TABLET PO SCH (09:05)
[2018-08-03] MEDS: COLCHICINE 0.6 MG TABLET PO SCH (09:05)
[2018-08-03] MEDS: ASPIRIN EC 81 MG TABLET PO SCH (09:06)
[2018-08-03] MEDS: DOCUSATE SODIUM 100 MG CAPSULE PO SCH ×2 (09:06→20:43)
[2018-08-03] MEDS: BRIMONIDINE/TIMOLOL OPH SOLN 5 ML BOTTLE RIGHT EYE SCH (20:42)
[2018-08-03] MEDS: amLODIPine 5 MG TABLET PO SCH (20:43)
[2018-08-03] MEDS: CITALOPRAM 20 MG TABLET PO SCH (20:43)
[2018-08-03] MEDS: ATORVASTATIN 40 MG TABLET PO SCH (20:43)
[2018-08-04] MEDS: ISOSORBIDE MONONITRATE 30 MG TABLET PO SCH (09:07)
[2018-08-04] MEDS: CELECOXIB 200 MG CAPSULE PO SCH ×2 (09:07→20:39)
[2018-08-04] MEDS: COLCHICINE 0.6 MG TABLET PO SCH (09:07)
[2018-08-04] MEDS: CARVEDILOL 12.5 MG TABLET PO SCH ×2 (09:07→20:38)
[2018-08-04] MEDS: MULTIVITAMIN (CENTRUM) TABLET PO SCH (09:08)
[2018-08-04] MEDS: DOCUSATE SODIUM 100 MG CAPSULE PO SCH ×2 (09:08→20:39)
[2018-08-04] MEDS: PANTOPRAZOLE 40 MG TABLET PO SCH ×2 (09:08)
[2018-08-04] MEDS: ASPIRIN EC 81 MG TABLET PO SCH (09:08)
[2018-08-04] MEDS: FUROSEMIDE 40 MG TABLET PO SCH (09:08)
[2018-08-04] MEDS: SODIUM CHLOR 0.9% KCL 20 MEQ 20 MEQ/1,000 ML BAG IV SCH (16:46)
[2018-08-04] MEDS ORDERED: SODIUM CHLORIDE 0.45% 1,000 ML IV SCH (17:30)
[2018-08-04] MEDS ORDERED: MEPERIDINE 25 MG/1 ML VIAL IM PRN (17:50)
[2018-08-04 19:04] LABS: Apearance,Urine CLEAR (Clear); Bacteria,Urine Moderate /HPF (Few); Bilirubin,Urine Negative (Negative); Blood, Urine Negative (Negative); Glucose,Urine (UA) Negative (Negative); Hyaline Casts,Urine 1 /LPF (0-3); Ketones,Urine Negative (Negative); Nitrite,Urine Negative (Negative); Protein,Urine Negative; RBC,Urine <1 /HPF (0-4); Squamous Epithelial Cell,Urine Occasional /HPF (0-10); Urine Color Yellow (Yellow); Urine Specific Gravity 1.009 (1.001-1.035); Urine Urobilinogen < 2.0 EU/DL (0.2-1.0); WBC,Urine 1 /HPF (0-6)
[2018-08-04] MEDS: amLODIPine 5 MG TABLET PO SCH (20:39)
[2018-08-04] MEDS: CITALOPRAM 20 MG TABLET PO SCH (20:39)
[2018-08-04] MEDS: BRIMONIDINE/TIMOLOL OPH SOLN 5 ML BOTTLE RIGHT EYE SCH (20:39)
[2018-08-04] MEDS: ATORVASTATIN 40 MG TABLET PO SCH (20:39)
[2018-08-05] MEDS ORDERED: amLODIPine 10 MG TABLET PO SCH (06:50)
[2018-08-05] MEDS: FUROSEMIDE 40 MG TABLET PO SCH (09:49)
[2018-08-05] MEDS: CARVEDILOL 12.5 MG TABLET PO SCH (09:50)
[2018-08-05] MEDS: IRON (CARBONYL)/VIT C/B12/FA TABLET PO SCH (09:50)
[2018-08-05] MEDS: ASPIRIN EC 81 MG TABLET PO SCH (09:50)
[2018-08-05] MEDS: MULTIVITAMIN (CENTRUM) TABLET PO SCH (09:50)
[2018-08-05] MEDS: CELECOXIB 200 MG CAPSULE PO SCH (09:50)
[2018-08-05] MEDS: ISOSORBIDE MONONITRATE 30 MG TABLET PO SCH (09:51)
[2018-08-05] MEDS: PANTOPRAZOLE 40 MG TABLET PO SCH ×2 (09:51→09:53)
[2018-08-05] MEDS: DOCUSATE SODIUM 100 MG CAPSULE PO SCH (09:51)
[2018-08-05] MEDS: COLCHICINE 0.6 MG TABLET PO SCH (09:52)
[2018-08-05 11:18] VITALS: BP 151/53
== END 2018-08-05 14:45 | DRG 481 ==
LOC: EDUNIT# → EDBD → N.ED 13:40 → SUPCPDRO 14:37 → N.EDINP 14:37 → N.3E 16:30
PROVIDERS: ADMIT Family Medicine; ATTEND Family Medicine

== ENCOUNTER 2018-11-16 21:27 | Inpatient (IN) ==
[2018-11-16] MEDS ORDERED: SODIUM CHLORIDE 0.9% 1,000 ML IV STA (22:02)
[2018-11-16 22:23] LABS: PT Patient Result 10.7 SECS; Partial Thromboplastin Time 24.5 SECS (0-40)
[2018-11-16 22:28] LABS: Albumin 3.2 G/DL (3.4-5.0); Bilirubin,Total 1.4 MG/DL (0.2-1.0); Calcium 8.9 MG/DL (8.5-10.1); Osmolality,Calculated 294.1 MOS/KG (273-304); Potassium 3.5 MMOL/L (3.5-5.1); Total Protein 7.2 G/DL (6.4-8.3)
[2018-11-16 22:50] LABS: Basophils % 0.2 % (0.0-0.8); Hematocrit 34.9 VOL% (35.7-47.0); Hemoglobin 11.4 GM/DL (12.0-16.0); Immature Granulocytes % 0.7 %; Immature Granulocytes Absolute 0.09 #; Lymphocytes # 0.7 10*3/uL (1.4-4.0); Lymphocytes % 5.5 % (21.3-54.2); Mean Corpuscular HGB Conc 32.7 GM/DL (32-36); Mean Corpuscular Hemoglobin 30 PG (27-34); Mean Corpuscular Volume 92.6 FL (87-102); Mean Platelet Volume 10.6 FL (9.6-12.0); Monocytes # 0.7 10*3/uL (0.11-0.8); Monocytes % 5.4 % (1.7-12.7); Neutrophils % 88.2 % (38.7-73.9); Platelet Count 182 T/CUMM (130-400); Red Blood Count 3.77 MC/CUMM (3.8-5.5); Red Cell Distribution Width 14.6 % (9.3-17.3); White Blood Count 12.5 T/CUMM (4-12)
[2018-11-16] MEDS ORDERED: LEVOFLOXACIN INJ 500 MG in PREMIX 1 EACH IV STA (23:13)
[2018-11-16 23:25] LABS: Apearance,Urine CLEAR (Clear); Bacteria,Urine Occasional /HPF (Few); Bilirubin,Urine Negative (Negative); Blood, Urine Negative (Negative); Glucose,Urine (UA) Negative (Negative); Ketones,Urine Negative (Negative); Nitrite,Urine Negative (Negative); Protein,Urine 30 MG/DL; RBC,Urine 1 /HPF (0-4); Urine Color Yellow (Yellow); Urine Urobilinogen < 2.0 EU/DL (0.2-1.0); WBC,Urine 1 /HPF (0-6)
[2018-11-16] MEDS ORDERED: MORPHINE 4 MG/1 ML VIAL ONE (23:56)
[2018-11-17] MEDS ORDERED: MORPHINE 4 MG/1 ML VIAL IV ONE
[2018-11-17] MEDS ORDERED: metroNIDAZOLE INJ 500 MG in PREMIX 1 EACH IV STA (01:06)
[2018-11-17] MEDS ORDERED: ACETAMINOPHEN 325 MG TABLET PO PRN (01:08)
[2018-11-17] MEDS ORDERED: ONDANSETRON 4 MG/2 ML VIAL IV ONE (01:18)
[2018-11-17 04:45] LABS: Basophils % 0.3 % (0.0-0.8); Eosinophils % 0.2 % (0.00-10.9); Hematocrit 35.5 VOL% (35.7-47.0); Hemoglobin 11.1 GM/DL (12.0-16.0); Immature Granulocytes % 0.7 %; Lymphocytes # 0.8 10*3/uL (1.4-4.0); Lymphocytes % 6.1 % (21.3-54.2); Mean Corpuscular HGB Conc 31.3 GM/DL (32-36); Mean Corpuscular Hemoglobin 30 PG (27-34); Mean Corpuscular Volume 95.4 FL (87-102); Mean Platelet Volume 11.4 FL (9.6-12.0); Monocytes # 0.5 10*3/uL (0.11-0.8); Monocytes % 3.7 % (1.7-12.7); Red Blood Count 3.72 MC/CUMM (3.8-5.5); Red Cell Distribution Width 14.8 % (9.3-17.3); White Blood Count 13.5 T/CUMM (4-12)
[2018-11-17 04:47] LABS: Platelet Count 165 T/CUMM (130-400)
[2018-11-17 05:06] LABS: Albumin 3.1 G/DL (3.4-5.0); Bilirubin,Total 1.8 MG/DL (0.2-1.0); Calcium 8.9 MG/DL (8.5-10.1); Osmolality,Calculated 293.1 MOS/KG (273-304); Potassium 3.8 MMOL/L (3.5-5.1); Total Protein 7.1 G/DL (6.4-8.3)
[2018-11-17 05:15] LABS: Hypochromasia Slight; Platelet Estimate Adequate
[2018-11-17] MEDS: DEXTROSE 5% NACL 0.45% 1,000 ML IV SCH ×3 (07:42→17:38)
[2018-11-17] MEDS ORDERED: ALBUTEROL/IPRATROPIUM 3 ML NEB RESP TX PRN (08:56)
[2018-11-17] MEDS: PANTOPRAZOLE 40 MG VIAL IV SCH (09:02)
[2018-11-17 09:05] LABS: Troponin I < 0.015 NG/ML (0.00-0.045)
[2018-11-17] MEDS: metroNIDAZOLE INJ 500 MG in PREMIX 1 EACH IV SCH ×2 (10:26→18:22)
[2018-11-17] MEDS: ENOXAPARIN 80 MG/0.8 ML SYRINGE SUBCUT SCH (10:26)
[2018-11-17 10:30] LABS: Troponin I < 0.015 NG/ML (0.00-0.045)
[2018-11-17 14:23] LABS: Troponin I < 0.015 NG/ML (0.00-0.045)
[2018-11-17] MEDS: HYDROmorphone 2 MG/1 ML VIAL IV PRN ×2 (14:45→19:58)
[2018-11-17 16:39] LABS: Troponin I 0.021 NG/ML (0.00-0.045)
[2018-11-17] MEDS ORDERED: RIVAROXABAN 15 MG TABLET PO SCH (17:00)
[2018-11-17] MEDS: BRIMONIDINE/TIMOLOL OPH SOLN 5 ML BOTTLE RIGHT EYE SCH (21:32)
[2018-11-18] MEDS: HYDROmorphone 2 MG/1 ML VIAL IV PRN ×4 (00:31→22:11)
[2018-11-18] MEDS: DEXTROSE 5% NACL 0.45% 1,000 ML IV SCH ×2 (00:42→05:56)
[2018-11-18] MEDS: metroNIDAZOLE INJ 500 MG in PREMIX 1 EACH IV SCH ×3 (02:46→19:06)
[2018-11-18 05:43] LABS: Basophils % 0.2 % (0.0-0.8); Eosinophils # 0.2 10*3/uL (0.0-0.87); Eosinophils % 1.6 % (0.00-10.9); Hematocrit 32.3 VOL% (35.7-47.0); Immature Granulocytes % 0.4 %; Immature Granulocytes Absolute 0.04 #; Lymphocytes # 1.3 10*3/uL (1.4-4.0); Lymphocytes % 13.6 % (21.3-54.2); Mean Corpuscular Hemoglobin 29 PG (27-34); Mean Platelet Volume 11.5 FL (9.6-12.0); Monocytes # 0.6 10*3/uL (0.11-0.8); Monocytes % 6.6 % (1.7-12.7); Neutrophils # 7.1 10*3/uL (1.4-7.4); Neutrophils % 77.6 % (38.7-73.9); Platelet Count 190 T/CUMM (130-400); Red Cell Distribution Width 14.8 % (9.3-17.3); White Blood Count 9.2 T/CUMM (4-12)
[2018-11-18 05:55] LABS: Calcium 8.9 MG/DL (8.5-10.1); Potassium 3.2 MMOL/L (3.5-5.1)
[2018-11-18] MEDS: ISOSORBIDE MONONITRATE 60 MG TABLET PO SCH (08:55)
[2018-11-18] MEDS: CARVEDILOL 25 MG TABLET PO SCH ×2 (08:55→21:22)
[2018-11-18] MEDS: ASPIRIN EC 81 MG TABLET PO SCH (08:55)
[2018-11-18] MEDS: FUROSEMIDE 40 MG TABLET PO SCH ×2 (08:56→21:23)
[2018-11-18] MEDS: ENOXAPARIN 80 MG/0.8 ML SYRINGE SUBCUT SCH (10:11)
[2018-11-18] MEDS: PANTOPRAZOLE 40 MG VIAL IV SCH (10:11)
[2018-11-18] MEDS: POTASSIUM CHLORIDE RIDER 10 MEQ in PREMIX 1 EACH IV PRN ×3 (11:50→22:02)
[2018-11-18] MEDS ORDERED: cloNIDine 0.2 MG/24 HR PATCH TRANSDERM SCH (12:30)
[2018-11-18] MEDS ORDERED: hydrALAZINE 20 MG/1 ML VIAL IV ONE ×2 (14:04→15:30)
[2018-11-18] MEDS: FUROSEMIDE 20 MG/2 ML VIAL IV SCH (14:49)
[2018-11-18] MEDS: ONDANSETRON 4 MG/2 ML VIAL IV PRN ×2 (16:12→22:11)
[2018-11-18] MEDS ORDERED: MAGNESIUM SULF RIDER 2 GM in PREMIX 1 EACH IV PRN (16:37)
[2018-11-18] MEDS ORDERED: MAGNESIUM SULF RIDER 4 GM in PREMIX 1 EACH IV PRN (16:37)
[2018-11-18] MEDS: POTASSIUM CHLORIDE INJ 20 MEQ in DEXTROSE 5% NACL 0.45% 1,000 ML IV SCH (17:22)
[2018-11-18] MEDS: METOPROLOL TARTRATE 5 MG/5 ML VIAL IV SCH (19:06)
[2018-11-18] MEDS: BRIMONIDINE/TIMOLOL OPH SOLN 5 ML BOTTLE RIGHT EYE SCH (21:00)
[2018-11-18] MEDS ORDERED: LEVOFLOXACIN INJ 250 MG in PREMIX 1 EACH IV SCH (21:00)
[2018-11-18] MEDS: TERAZOSIN 1 MG CAPSULE PO SCH (21:22)
[2018-11-18] MEDS: CITALOPRAM 20 MG TABLET PO SCH (21:22)
[2018-11-18] MEDS: ATORVASTATIN 40 MG TABLET PO SCH (21:23)
[2018-11-18] MEDS: hydrALAZINE 20 MG/1 ML VIAL IV PRN (21:30)
[2018-11-19] MEDS: METOPROLOL TARTRATE 5 MG/5 ML VIAL IV SCH ×4 (01:48→18:58)
[2018-11-19] MEDS: POTASSIUM CHLORIDE RIDER 10 MEQ in PREMIX 1 EACH IV PRN (03:14)
[2018-11-19 04:28] LABS: Basophils % 0.3 % (0.0-0.8); Eosinophils # 0.1 10*3/uL (0.0-0.87); Eosinophils % 0.6 % (0.00-10.9); Hematocrit 32.8 VOL% (35.7-47.0); Hemoglobin 10.1 GM/DL (12.0-16.0); Immature Granulocytes % 0.5 %; Immature Granulocytes Absolute 0.05 #; Lymphocytes # 0.9 10*3/uL (1.4-4.0); Lymphocytes % 8.6 % (21.3-54.2); Mean Corpuscular HGB Conc 30.8 GM/DL (32-36); Mean Corpuscular Hemoglobin 30 PG (27-34); Mean Platelet Volume 10.7 FL (9.6-12.0); Monocytes # 0.6 10*3/uL (0.11-0.8); Neutrophils # 8.7 10*3/uL (1.4-7.4); Platelet Count 219 T/CUMM (130-400); Red Blood Count 3.38 MC/CUMM (3.8-5.5); Red Cell Distribution Width 14.9 % (9.3-17.3); White Blood Count 10.3 T/CUMM (4-12)
[2018-11-19] MEDS: metroNIDAZOLE INJ 500 MG in PREMIX 1 EACH IV SCH ×3 (04:54→18:43)
[2018-11-19 05:02] LABS: Albumin 2.9 G/DL (3.4-5.0); Bilirubin,Total 0.9 MG/DL (0.2-1.0); Calcium 9.1 MG/DL (8.5-10.1); Potassium 4.1 MMOL/L (3.5-5.1); Total Protein 6.9 G/DL (6.4-8.3)
[2018-11-19 06:22] LABS: Osmolality,Calculated 290.1 MOS/KG (273-304)
[2018-11-19] MEDS: HYDROmorphone 2 MG/1 ML VIAL IV PRN ×3 (07:04→21:26)
[2018-11-19] MEDS: ONDANSETRON 4 MG/2 ML VIAL IV PRN ×2 (07:04→21:26)
[2018-11-19] MEDS: hydrALAZINE 20 MG/1 ML VIAL IV PRN (07:18)
[2018-11-19] MEDS ORDERED: POTASSIUM CHLORIDE INJ 10 MEQ in DEXTROSE 5% NACL 0.45% 1,000 ML IV SCH (07:39)
[2018-11-19] MEDS ORDERED: DEXT 5% NACL 0.45% KCL 10 MEQ 10 MEQ/1,000 ML BAG IV SCH (08:30)
[2018-11-19] MEDS ORDERED: cloNIDine 0.3 MG/24 HR PATCH TRANSDERM SCH (09:00)
[2018-11-19] MEDS: ASPIRIN EC 81 MG TABLET PO SCH (09:09)
[2018-11-19] MEDS: CARVEDILOL 25 MG TABLET PO SCH ×2 (09:09→21:16)
[2018-11-19] MEDS: FUROSEMIDE 40 MG TABLET PO SCH ×2 (09:10→21:16)
[2018-11-19] MEDS: ISOSORBIDE MONONITRATE 60 MG TABLET PO SCH (09:10)
[2018-11-19] MEDS: PANTOPRAZOLE 40 MG VIAL IV SCH (09:31)
[2018-11-19] MEDS: FUROSEMIDE 20 MG/2 ML VIAL IV SCH (09:31)
[2018-11-19] MEDS: ENOXAPARIN 80 MG/0.8 ML SYRINGE SUBCUT SCH (09:32)
[2018-11-19] MEDS: LEVOFLOXACIN INJ 750 MG in PREMIX 1 EACH IV SCH ×2 (09:32→09:57)
[2018-11-19] MEDS ORDERED: cloNIDine 0.3 MG/24 HR PATCH TRANSDERM ONE (10:00)
[2018-11-19] MEDS: POTASSIUM CHLORIDE INJ 20 MEQ in DEXTROSE 5% NACL 0.45% 1,000 ML IV SCH (10:00)
[2018-11-19] MEDS: NITROGLYCERIN 2% OINT 1 INCH/GM PACK TOP SCH ×2 (17:00→17:24)
[2018-11-19] MEDS: amLODIPine 5 MG TABLET PO SCH (17:25)
[2018-11-19] MEDS ORDERED: DEXTROSE 5% NACL 0.9% 1,000 ML IV SCH (18:00)
[2018-11-19] MEDS: DEXTROSE 5% NACL 0.9% 1,000 ML IV SCH (18:58)
[2018-11-19] MEDS: TERAZOSIN 1 MG CAPSULE PO SCH (21:16)
[2018-11-19] MEDS: CITALOPRAM 20 MG TABLET PO SCH (21:16)
[2018-11-19] MEDS: ATORVASTATIN 40 MG TABLET PO SCH (21:17)
[2018-11-19] MEDS: BRIMONIDINE/TIMOLOL OPH SOLN 5 ML BOTTLE RIGHT EYE SCH (22:00)
[2018-11-20] MEDS: NITROGLYCERIN 2% OINT 1 INCH/GM PACK TOP SCH ×4 (00:58→17:58)
[2018-11-20] MEDS: METOPROLOL TARTRATE 5 MG/5 ML VIAL IV SCH ×4 (00:58→17:52)
[2018-11-20] MEDS: metroNIDAZOLE INJ 500 MG in PREMIX 1 EACH IV SCH ×3 (02:32→18:00)
[2018-11-20] MEDS: DEXTROSE 5% NACL 0.9% 1,000 ML IV SCH ×4 (02:33→23:24)
[2018-11-20] MEDS: HYDROmorphone 2 MG/1 ML VIAL IV PRN ×4 (04:42→23:18)
[2018-11-20 05:26] LABS: Basophils % 0.3 % (0.0-0.8); Eosinophils # 0.1 10*3/uL (0.0-0.87); Eosinophils % 1.8 % (0.00-10.9); Hematocrit 30.2 VOL% (35.7-47.0); Hemoglobin 9.1 GM/DL (12.0-16.0); Immature Granulocytes % 0.5 %; Immature Granulocytes Absolute 0.04 #; Lymphocytes # 1.2 10*3/uL (1.4-4.0); Lymphocytes % 15.1 % (21.3-54.2); Mean Corpuscular HGB Conc 30.1 GM/DL (32-36); Mean Corpuscular Hemoglobin 29 PG (27-34); Mean Corpuscular Volume 97.7 FL (87-102); Mean Platelet Volume 11.1 FL (9.6-12.0); Monocytes # 0.6 10*3/uL (0.11-0.8); Monocytes % 7.6 % (1.7-12.7); Neutrophils # 5.9 10*3/uL (1.4-7.4); Neutrophils % 74.7 % (38.7-73.9); Platelet Count 195 T/CUMM (130-400); Red Blood Count 3.09 MC/CUMM (3.8-5.5); Red Cell Distribution Width 15.2 % (9.3-17.3); White Blood Count 7.9 T/CUMM (4-12)
[2018-11-20 05:46] LABS: Albumin 2.7 G/DL (3.4-5.0); Bilirubin,Total 0.9 MG/DL (0.2-1.0); Calcium 8.8 MG/DL (8.5-10.1); Ferritin 373.7 ng/ml (8-252); Free T4 (Free Thyroxine) 1.28 NG/DL (0.76-1.46); Osmolality,Calculated 295.8 MOS/KG (273-304); Potassium 3.7 MMOL/L (3.5-5.1); Thyroid Stimulating Hormone 0.928 uIU/ml (0.358-3.74); Total Protein 6.2 G/DL (6.4-8.3)
[2018-11-20] MEDS: ASPIRIN EC 81 MG TABLET PO SCH (09:08)
[2018-11-20] MEDS: FUROSEMIDE 40 MG TABLET PO SCH (09:08)
[2018-11-20] MEDS: amLODIPine 5 MG TABLET PO SCH (09:08)
[2018-11-20] MEDS: CARVEDILOL 25 MG TABLET PO SCH (09:08)
[2018-11-20] MEDS: ISOSORBIDE MONONITRATE 60 MG TABLET PO SCH (09:08)
[2018-11-20] MEDS: FUROSEMIDE 20 MG/2 ML VIAL IV SCH (09:22)
[2018-11-20] MEDS: PANTOPRAZOLE 40 MG VIAL IV SCH (09:26)
[2018-11-20] MEDS: LEVOFLOXACIN INJ 750 MG in PREMIX 1 EACH IV SCH (09:35)
[2018-11-20] MEDS: ENOXAPARIN 80 MG/0.8 ML SYRINGE SUBCUT SCH (10:38)
[2018-11-20] MEDS: POTASSIUM CHLORIDE RIDER 10 MEQ in PREMIX 1 EACH IV PRN (14:14)
[2018-11-21] MEDS: BRIMONIDINE/TIMOLOL OPH SOLN 5 ML BOTTLE RIGHT EYE SCH ×2 (02:09→23:50)
[2018-11-21] MEDS: CITALOPRAM 20 MG TABLET PO SCH ×2 (02:09→21:17)
[2018-11-21] MEDS: TERAZOSIN 1 MG CAPSULE PO SCH ×2 (02:10→21:17)
[2018-11-21] MEDS: CARVEDILOL 25 MG TABLET PO SCH ×3 (02:10→21:17)
[2018-11-21] MEDS: ATORVASTATIN 40 MG TABLET PO SCH ×2 (02:11→21:17)
[2018-11-21] MEDS: FUROSEMIDE 40 MG TABLET PO SCH ×3 (02:11→21:17)
[2018-11-21] MEDS: METOPROLOL TARTRATE 5 MG/5 ML VIAL IV SCH ×4 (02:45→18:11)
[2018-11-21] MEDS: metroNIDAZOLE INJ 500 MG in PREMIX 1 EACH IV SCH ×3 (02:53→18:51)
[2018-11-21] MEDS: NITROGLYCERIN 2% OINT 1 INCH/GM PACK TOP SCH ×4 (02:58→18:10)
[2018-11-21] MEDS: HYDROmorphone 2 MG/1 ML VIAL IV PRN ×3 (04:05→19:01)
[2018-11-21 04:31] LABS: Basophils % 0.2 % (0.0-0.8); Eosinophils # 0.2 10*3/uL (0.0-0.87); Hematocrit 29.8 VOL% (35.7-47.0); Immature Granulocytes % 0.5 %; Immature Granulocytes Absolute 0.04 #; Lymphocytes # 1.1 10*3/uL (1.4-4.0); Lymphocytes % 12.8 % (21.3-54.2); Mean Corpuscular HGB Conc 30.2 GM/DL (32-36); Mean Corpuscular Hemoglobin 30 PG (27-34); Mean Corpuscular Volume 98.7 FL (87-102); Mean Platelet Volume 10.9 FL (9.6-12.0); Monocytes # 0.8 10*3/uL (0.11-0.8); Neutrophils # 6.5 10*3/uL (1.4-7.4); Neutrophils % 75.5 % (38.7-73.9); Platelet Count 180 T/CUMM (130-400); Red Blood Count 3.02 MC/CUMM (3.8-5.5); Red Cell Distribution Width 14.9 % (9.3-17.3); White Blood Count 8.5 T/CUMM (4-12)
[2018-11-21 04:43] LABS: Albumin 2.4 G/DL (3.4-5.0); Bilirubin,Total 0.5 MG/DL (0.2-1.0); Calcium 8.5 MG/DL (8.5-10.1); Osmolality,Calculated 301.3 MOS/KG (273-304); Potassium 3.8 MMOL/L (3.5-5.1); Total Protein 5.9 G/DL (6.4-8.3)
[2018-11-21] MEDS ORDERED: CLINDAMYCIN INJ 900 MG in PREMIX 1 EACH IV ONE (08:31)
[2018-11-21] MEDS: PANTOPRAZOLE 40 MG VIAL IV SCH (09:07)
[2018-11-21] MEDS: ASPIRIN EC 81 MG TABLET PO SCH (09:19)
[2018-11-21] MEDS: ISOSORBIDE MONONITRATE 60 MG TABLET PO SCH (09:20)
[2018-11-21] MEDS: amLODIPine 5 MG TABLET PO SCH (09:20)
[2018-11-21] MEDS: DEXTROSE 5% NACL 0.9% 1,000 ML IV SCH (09:41)
[2018-11-21] MEDS: DEXT 5% NACL 0.9% KCL 20 MEQ 20 MEQ/1,000 ML BAG IV SCH ×2 (10:06→18:24)
[2018-11-21] MEDS ORDERED: SODIUM CHLORIDE 0.9% 1,000 ML IV ONE (11:37)
[2018-11-21] MEDS ORDERED: HEPARIN/NACL 0.9% 2 UNITS/ML 500 ML IV ONE (11:37)
[2018-11-21] MEDS ORDERED: LACTATED RINGERS 1,000 ML IV ONE (11:37)
[2018-11-21] MEDS ORDERED: PHENYLEPHRINE DRIP 20 MG/250 ML PREMIX IV ONE (11:37)
[2018-11-21] MEDS ORDERED: NITROGLYCERIN DRIP 50 MG/250 ML BOTTLE IV ONE (13:08)
[2018-11-21 13:23] LABS: ABG Base Excess -3.4 MMOL/L (-2.5-2.5); ABG HCO3 21.6 MMOL/L (20-26); ABG Oxygen Saturation 99.9 % (95-100); ABG PCO2 33.1 MM HG (35-48); ABG PH 7.404 (7.35-7.45); ABG TCO2 19.1 MMOL/L (23-27); Glucose Heart Surgery 122 MG/DL (74-106); Hematocrit Heart Surgery 27.4 PERCENT (37-47); Hemoglobin Heart Surgery 8.8 G/DL (12.0-16.0); Ionized Calcium Arterial 1.26 MMOL/L (1.21-1.46); PCO2 Patient Temp Arterial 33.1 MMHG; PH Patient Temp Arterial 7.404; Patient Temperature 37 CELCIUS; Potassium Heart/CVR 3.8 MMOL/L (3.5-5.1); Sodium Heart/CVR 145 MMOL/L (135-145)
[2018-11-21] MEDS ORDERED: TISSUE ADHESIVE 1 EACH APPLICATOR TOP ONE (13:29)
[2018-11-21] MEDS ORDERED: PROPOFOL 1,000 MG/100 ML BOTTLE IV ONE (14:08)
[2018-11-21] MEDS ORDERED: MIDAZOLAM 2 MG/2 ML VIAL ONE (14:23)
[2018-11-21] MEDS ORDERED: SEVOFLURANE 1 UNIT/15 MINUTE INH ONE (14:23)
[2018-11-21] MEDS ORDERED: SUCCINYLCHOLINE 200 MG/10 ML VIAL ONE (14:24)
[2018-11-21] MEDS ORDERED: ROCURONIUM 100 MG/10 ML VIAL IV ONE (14:24)
[2018-11-21] MEDS ORDERED: MIDAZOLAM 10 MG/2 ML VIAL ONE (14:24)
[2018-11-21] MEDS ORDERED: ETOMIDATE 40 MG/20 ML VIAL IV ONE (14:24)
[2018-11-21] MEDS ORDERED: fentaNYL 100 MCG/2 ML VIAL ONE (14:24)
[2018-11-21] MEDS: PROPOFOL 1,000 MG/100 ML BOTTLE IV SCH ×2 (14:30→22:46)
[2018-11-21] MEDS ORDERED: PROPOFOL 1,000 MG/100 ML BOTTLE IV SCH (15:27)
[2018-11-21] MEDS: LACTATED RINGERS 1,000 ML IV SCH (15:46)
[2018-11-21] MEDS ORDERED: ENOXAPARIN 80 MG/0.8 ML SYRINGE SUBCUT SCH (16:00)
[2018-11-21 16:01] LABS: ABG Base Excess -4.3 MMOL/L (-2.5-2.5); ABG HCO3 20.8 MMOL/L (20-26); ABG Oxygen Saturation 98.8 % (95-100); ABG PCO2 41.2 MM HG (35-48); ABG PH 7.324 (7.35-7.45)
[2018-11-21] MEDS: hydrALAZINE 20 MG/1 ML VIAL IV PRN ×2 (16:02→21:32)
[2018-11-21] MEDS ORDERED: DEXTROSE 50% 25 GM/50 ML SYRINGE IV PRN (16:02)
[2018-11-21] MEDS ORDERED: GLUCAGON 1 MG VIAL IM PRN (16:02)
[2018-11-21 16:24] LABS: Calcium 8.8 MG/DL (8.5-10.1); Osmolality,Calculated 298.4 MOS/KG (273-304); Potassium 3.5 MMOL/L (3.5-5.1)
[2018-11-21] MEDS ORDERED: DEXTROSE 10% 1,000 ML IV PRN (17:00)
[2018-11-21] MEDS: TRACE ELEMENTS (5) 1 ML, MULTIVITAMIN INJ 10 ML in AMINO ACIDS 10% 700 ML, DEXTROSE 70%... IV SCH (18:10)
[2018-11-21] MEDS: FAT EMULSION 20% 250 ML IV SCH (18:11)
[2018-11-21] MEDS: INSULIN REGULAR 100 UNIT/ML SUBCUT SCH (18:35)
[2018-11-21] MEDS: POTASSIUM CHLORIDE RIDER 20 MEQ in PREMIX 1 EACH IV PRN (18:51)
[2018-11-21] MEDS: ENOXAPARIN 80 MG/0.8 ML SYRINGE SUBCUT SCH (21:17)
[2018-11-21] MEDS: POTASSIUM CHLORIDE RIDER 10 MEQ in PREMIX 1 EACH IV PRN (22:26)
[2018-11-22] MEDS: INSULIN REGULAR 100 UNIT/ML SUBCUT SCH ×5 (00:48→23:31)
[2018-11-22] MEDS: NITROGLYCERIN 2% OINT 1 INCH/GM PACK TOP SCH ×5 (00:56→23:59)
[2018-11-22] MEDS: METOPROLOL TARTRATE 5 MG/5 ML VIAL IV SCH ×5 (00:57→23:59)
[2018-11-22] MEDS: HYDROmorphone 2 MG/1 ML VIAL IV PRN ×4 (00:59→20:28)
[2018-11-22] MEDS: LACTATED RINGERS 1,000 ML IV SCH ×2 (01:48→20:56)
[2018-11-22] MEDS: metroNIDAZOLE INJ 500 MG in PREMIX 1 EACH IV SCH ×3 (03:40→21:24)
[2018-11-22 05:04] LABS: ABG Base Excess -4.2 MMOL/L (-2.5-2.5); ABG HCO3 20.9 MMOL/L (20-26); ABG Oxygen Saturation 98.4 % (95-100); ABG PCO2 35.1 MM HG (35-48); ABG PH 7.375 (7.35-7.45); ABG TCO2 19.1 MMOL/L (23-27)
[2018-11-22 05:40] LABS: Basophils % 0.4 % (0.0-0.8); Eosinophils # 0.2 10*3/uL (0.0-0.87); Eosinophils % 2.6 % (0.00-10.9); Hematocrit 25.9 VOL% (35.7-47.0); Hemoglobin 7.8 GM/DL (12.0-16.0); Immature Granulocytes % 0.6 %; Immature Granulocytes Absolute 0.05 #; Lymphocytes # 1.1 10*3/uL (1.4-4.0); Lymphocytes % 13.8 % (21.3-54.2); Mean Corpuscular HGB Conc 30.1 GM/DL (32-36); Mean Corpuscular Hemoglobin 30 PG (27-34); Mean Platelet Volume 11.7 FL (9.6-12.0); Monocytes # 0.7 10*3/uL (0.11-0.8); Neutrophils # 6.1 10*3/uL (1.4-7.4); Neutrophils % 74.6 % (38.7-73.9); Platelet Count 170 T/CUMM (130-400); Red Blood Count 2.59 MC/CUMM (3.8-5.5); Red Cell Distribution Width 15.4 % (9.3-17.3); White Blood Count 8.1 T/CUMM (4-12)
[2018-11-22 05:49] LABS: Alanine Aminotransferase 11 U/L (13-56); Alkaline Phosphatase 54 U/L (45-117); Aspartate Amino Transferase 10 U/L (0-37); Bilirubin,Total < 0.39 MG/DL (0.2-1.0); Blood Urea Nitrogen 31 MG/DL (7-18); Calcium 7.9 MG/DL (8.5-10.1); Glucose 119 MG/DL (74-106); Osmolality,Calculated 297.6 MOS/KG (273-304); Potassium 3.4 MMOL/L (3.5-5.1); Sodium 146 MMOL/L (136-145)
[2018-11-22] MEDS: POTASSIUM CHLORIDE RIDER 20 MEQ in PREMIX 1 EACH IV PRN (06:00)
[2018-11-22 06:11] LABS: Prealbumin 10.5 MG/DL (20-40)
[2018-11-22] MEDS: POTASSIUM CHLORIDE RIDER 10 MEQ in PREMIX 1 EACH IV PRN (06:28)
[2018-11-22] MEDS: hydrALAZINE 20 MG/1 ML VIAL IV PRN (07:09)
[2018-11-22] MEDS: ENOXAPARIN 80 MG/0.8 ML SYRINGE SUBCUT SCH ×2 (10:24→21:30)
[2018-11-22] MEDS: POTASSIUM CHLORIDE INJ 20 MEQ in LACTATED RINGERS 1,000 ML IV SCH ×3 (10:30→20:00)
[2018-11-22] MEDS: PANTOPRAZOLE 40 MG VIAL IV SCH (10:35)
[2018-11-22] MEDS: CARVEDILOL 25 MG TABLET PO SCH ×2 (10:39→21:24)
[2018-11-22] MEDS: FUROSEMIDE 40 MG TABLET PO SCH ×2 (10:40→21:23)
[2018-11-22] MEDS: ASPIRIN CHEW 81 MG TABLET PO SCH (10:40)
[2018-11-22] MEDS: ISOSORBIDE MONONITRATE 60 MG TABLET PO SCH (10:43)
[2018-11-22] MEDS: amLODIPine 5 MG TABLET PO SCH (10:45)
[2018-11-22] MEDS: LEVOFLOXACIN INJ 750 MG in PREMIX 1 EACH IV SCH (10:50)
[2018-11-22 11:46] LABS: ABG Base Excess -4.3 MMOL/L (-2.5-2.5); ABG HCO3 20.9 MMOL/L (20-26); ABG PCO2 31.4 MM HG (35-48); ABG PH 7.405 (7.35-7.45); ABG TCO2 18.1 MMOL/L (23-27)
[2018-11-22 12:35] LABS: Hematocrit 27.3 VOL% (35.7-47.0); Hemoglobin 8.3 GM/DL (12.0-16.0)
[2018-11-22] MEDS ORDERED: MAGNESIUM SULF RIDER 2 GM in PREMIX 1 EACH IV ONE (12:45)
[2018-11-22 14:29] LABS: ABG Base Excess -4.9 MMOL/L (-2.5-2.5); ABG HCO3 20.4 MMOL/L (20-26); ABG Oxygen Saturation 97.6 % (95-100); ABG PCO2 33.1 MM HG (35-48); ABG PO2 93.5 MM HG (80-95)
[2018-11-22] MEDS: ELECTROLYTE CONCENTRATE 20 ML, TRACE ELEMENTS (5) 1 ML, MULTIVITAMIN INJ 10 ML, POTASSI... IV SCH (16:50)
[2018-11-22] MEDS: FAT EMULSION 20% 250 ML IV SCH (16:55)
[2018-11-22] MEDS: TRACE ELEMENTS (5) 1 ML, MULTIVITAMIN INJ 10 ML in AMINO ACIDS 10% 700 ML, DEXTROSE 70%... IV SCH (16:59)
[2018-11-22] MEDS: PROPOFOL 1,000 MG/100 ML BOTTLE IV SCH (20:57)
[2018-11-22] MEDS: ASPIRIN EC 81 MG TABLET PO SCH (20:57)
[2018-11-22] MEDS: CITALOPRAM 20 MG TABLET PO SCH (21:23)
[2018-11-22] MEDS: ATORVASTATIN 40 MG TABLET PO SCH (21:24)
[2018-11-22] MEDS: TERAZOSIN 1 MG CAPSULE PO SCH (21:24)
[2018-11-22] MEDS: BRIMONIDINE/TIMOLOL OPH SOLN 5 ML BOTTLE RIGHT EYE SCH (21:31)
[2018-11-23] MEDS: POTASSIUM CHLORIDE INJ 20 MEQ in LACTATED RINGERS 1,000 ML IV SCH ×4 (02:30→23:07)
[2018-11-23] MEDS: HYDROmorphone 2 MG/1 ML VIAL IV PRN ×5 (02:56→19:56)
[2018-11-23] MEDS: metroNIDAZOLE INJ 500 MG in PREMIX 1 EACH IV SCH ×3 (04:16→21:37)
[2018-11-23 04:27] LABS: ABG Base Excess -4.7 MMOL/L (-2.5-2.5); ABG HCO3 20.5 MMOL/L (20-26); ABG Oxygen Saturation 97.9 % (95-100); ABG PH 7.376 (7.35-7.45); ABG PO2 98.7 MM HG (80-95); ABG TCO2 18.6 MMOL/L (23-27)
[2018-11-23 04:40] LABS: Basophils % 0.2 % (0.0-0.8); Eosinophils # 0.3 10*3/uL (0.0-0.87); Eosinophils % 3.2 % (0.00-10.9); Hematocrit 25.6 VOL% (35.7-47.0); Immature Granulocytes % 0.7 %; Immature Granulocytes Absolute 0.06 #; Lymphocytes # 1.1 10*3/uL (1.4-4.0); Lymphocytes % 12.8 % (21.3-54.2); Mean Corpuscular HGB Conc 31.3 GM/DL (32-36); Mean Corpuscular Hemoglobin 31 PG (27-34); Mean Corpuscular Volume 98.1 FL (87-102); Mean Platelet Volume 11.6 FL (9.6-12.0); Monocytes # 0.6 10*3/uL (0.11-0.8); Monocytes % 7.3 % (1.7-12.7); NRBC # 0.02 10*3/uL; Neutrophils # 6.5 10*3/uL (1.4-7.4); Neutrophils % 75.8 % (38.7-73.9); Platelet Count 159 T/CUMM (130-400); Red Blood Count 2.61 MC/CUMM (3.8-5.5); Red Cell Distribution Width 15.4 % (9.3-17.3); White Blood Count 8.5 T/CUMM (4-12)
[2018-11-23] MEDS: METOPROLOL TARTRATE 5 MG/5 ML VIAL IV SCH ×3 (05:15→18:48)
[2018-11-23 05:21] LABS: Alanine Aminotransferase < 9 U/L (13-56); Albumin 2.1 G/DL (3.4-5.0); Alkaline Phosphatase 57 U/L (45-117); Aspartate Amino Transferase 10 U/L (0-37); Bilirubin,Total < 0.39 MG/DL (0.2-1.0); Blood Urea Nitrogen 38 MG/DL (7-18); Calcium 7.8 MG/DL (8.5-10.1); Glucose 147 MG/DL (74-106); Osmolality,Calculated 301.6 MOS/KG (273-304); Potassium 3.7 MMOL/L (3.5-5.1); Sodium 146 MMOL/L (136-145); Total Protein 5.2 G/DL (6.4-8.3)
[2018-11-23] MEDS: INSULIN REGULAR 100 UNIT/ML SUBCUT SCH ×3 (06:06→18:29)
[2018-11-23] MEDS: POTASSIUM CHLORIDE RIDER 20 MEQ in PREMIX 1 EACH IV PRN (06:16)
[2018-11-23] MEDS: NITROGLYCERIN 2% OINT 1 INCH/GM PACK TOP SCH ×3 (06:35→18:31)
[2018-11-23] MEDS: ENOXAPARIN 80 MG/0.8 ML SYRINGE SUBCUT SCH ×2 (09:04→21:39)
[2018-11-23] MEDS: PANTOPRAZOLE 40 MG VIAL IV SCH (09:04)
[2018-11-23] MEDS: ISOSORBIDE MONONITRATE 60 MG TABLET PO SCH (09:05)
[2018-11-23] MEDS: ASPIRIN CHEW 81 MG TABLET PO SCH (09:05)
[2018-11-23] MEDS: CARVEDILOL 25 MG TABLET PO SCH ×2 (09:05→21:39)
[2018-11-23] MEDS: FUROSEMIDE 40 MG TABLET PO SCH ×2 (09:05→21:38)
[2018-11-23] MEDS: amLODIPine 5 MG TABLET PO SCH (09:05)
[2018-11-23] MEDS ORDERED: SODIUM CHLORIDE 0.9% 1,000 ML IV PRN (11:10)
[2018-11-23] MEDS: TRACE ELEMENTS (5) 1 ML, MULTIVITAMIN INJ 10 ML in AMINO ACIDS/DEXT/LYTES 5-15% 2,000 ML IV SCH (17:21)
[2018-11-23] MEDS: FAT EMULSION 20% 250 ML IV SCH (18:36)
[2018-11-23] MEDS: ELECTROLYTE CONCENTRATE 20 ML, TRACE ELEMENTS (5) 1 ML, MULTIVITAMIN INJ 10 ML, POTASSI... IV SCH (18:43)
[2018-11-23] MEDS: hydrALAZINE 20 MG/1 ML VIAL IV PRN (19:14)
[2018-11-23 20:30] LABS: Hematocrit 34.4 VOL% (35.7-47.0); Hemoglobin 10.8 GM/DL (12.0-16.0)
[2018-11-23] MEDS: TERAZOSIN 1 MG CAPSULE PO SCH (21:38)
[2018-11-23] MEDS: ATORVASTATIN 40 MG TABLET PO SCH (21:39)
[2018-11-23] MEDS: CITALOPRAM 20 MG TABLET PO SCH (21:39)
[2018-11-23] MEDS: BRIMONIDINE/TIMOLOL OPH SOLN 5 ML BOTTLE RIGHT EYE SCH (21:43)
[2018-11-24] MEDS: INSULIN REGULAR 100 UNIT/ML SUBCUT SCH ×5 (00:17→23:03)
[2018-11-24] MEDS: NITROGLYCERIN 2% OINT 1 INCH/GM PACK TOP SCH ×5 (00:23→23:04)
[2018-11-24] MEDS: METOPROLOL TARTRATE 5 MG/5 ML VIAL IV SCH ×5 (00:23→23:11)
[2018-11-24] MEDS: HYDROmorphone 2 MG/1 ML VIAL IV PRN ×3 (01:04→18:58)
[2018-11-24] MEDS: POTASSIUM CHLORIDE INJ 20 MEQ in LACTATED RINGERS 1,000 ML IV SCH ×3 (02:35→18:42)
[2018-11-24] MEDS: metroNIDAZOLE INJ 500 MG in PREMIX 1 EACH IV SCH ×3 (04:57→20:53)
[2018-11-24 05:02] LABS: ABG HCO3 19.8 MMOL/L (20-26); ABG Oxygen Saturation 96.9 % (95-100); ABG PCO2 36.1 MM HG (35-48); ABG PH 7.357 (7.35-7.45); ABG PO2 96.1 MM HG (80-95); ABG TCO2 20.9 MMOL/L (23-27)
[2018-11-24 05:57] LABS: Basophils % 0.4 % (0.0-0.8); Eosinophils # 0.4 10*3/uL (0.0-0.87); Eosinophils % 3.6 % (0.00-10.9); Hematocrit 33.6 VOL% (35.7-47.0); Hemoglobin 10.7 GM/DL (12.0-16.0); Immature Granulocytes % 1.2 %; Immature Granulocytes Absolute 0.13 #; Lymphocytes # 1.3 10*3/uL (1.4-4.0); Lymphocytes % 11.8 % (21.3-54.2); Mean Corpuscular HGB Conc 31.8 GM/DL (32-36); Mean Corpuscular Hemoglobin 31 PG (27-34); Mean Corpuscular Volume 95.7 FL (87-102); Mean Platelet Volume 11.7 FL (9.6-12.0); Monocytes # 0.9 10*3/uL (0.11-0.8); Monocytes % 7.9 % (1.7-12.7); Neutrophils # 8.1 10*3/uL (1.4-7.4); Neutrophils % 75.1 % (38.7-73.9); Platelet Count 193 T/CUMM (130-400); Red Blood Count 3.51 MC/CUMM (3.8-5.5); Red Cell Distribution Width 16.6 % (9.3-17.3); White Blood Count 10.8 T/CUMM (4-12)
[2018-11-24 06:15] LABS: Calcium 8.1 MG/DL (8.5-10.1); Osmolality,Calculated 298.8 MOS/KG (273-304); Potassium 3.9 MMOL/L (3.5-5.1)
[2018-11-24] MEDS: ASPIRIN CHEW 81 MG TABLET PO SCH (09:37)
[2018-11-24] MEDS: ENOXAPARIN 80 MG/0.8 ML SYRINGE SUBCUT SCH ×2 (09:37→21:31)
[2018-11-24] MEDS: CARVEDILOL 25 MG TABLET PO SCH ×2 (09:37→21:32)
[2018-11-24] MEDS: FUROSEMIDE 40 MG TABLET PO SCH (09:37)
[2018-11-24] MEDS: POTASSIUM CHLORIDE RIDER 20 MEQ in PREMIX 1 EACH IV PRN (09:37)
[2018-11-24] MEDS: ISOSORBIDE MONONITRATE 60 MG TABLET PO SCH (09:37)
[2018-11-24] MEDS: PANTOPRAZOLE 40 MG VIAL IV SCH (09:37)
[2018-11-24] MEDS: amLODIPine 5 MG TABLET PO SCH (09:37)
[2018-11-24] MEDS: LEVOFLOXACIN INJ 750 MG in PREMIX 1 EACH IV SCH (09:38)
[2018-11-24] MEDS ORDERED: MORPHINE 4 MG/1 ML VIAL IV PRN (11:52)
[2018-11-24] MEDS: MORPHINE 4 MG/1 ML VIAL IV PRN ×4 (13:01→23:14)
[2018-11-24] MEDS: FAT EMULSION 20% 250 ML IV SCH (14:54)
[2018-11-24] MEDS: TRACE ELEMENTS (5) 1 ML, MULTIVITAMIN INJ 10 ML in AMINO ACIDS/DEXT/LYTES 5-15% 2,000 ML IV SCH (17:15)
[2018-11-24] MEDS ORDERED: NITROGLYCERIN SL 0.4 MG TABLET SL PRN (17:51)
[2018-11-24] MEDS ORDERED: NITROGLYCERIN DRIP 50 MG/250 ML BOTTLE IV ONE (18:07)
[2018-11-24] MEDS: hydrALAZINE 20 MG/1 ML VIAL IV PRN (18:08)
[2018-11-24] MEDS ORDERED: NITROGLYCERIN DRIP 50 MG/250 ML BOTTLE IV PRN (18:08)
[2018-11-24] MEDS ORDERED: FUROSEMIDE 40 MG/4 ML VIAL IV ONE (18:18)
[2018-11-24] MEDS ORDERED: LORazepam 1 MG TABLET ONE (18:52)
[2018-11-24] MEDS: ALPRAZolam 0.25 MG TABLET PO SCH (19:00)
[2018-11-24] MEDS: ATORVASTATIN 40 MG TABLET PO SCH (21:31)
[2018-11-24] MEDS: CITALOPRAM 20 MG TABLET PO SCH (21:32)
[2018-11-24] MEDS: TERAZOSIN 1 MG CAPSULE PO SCH (21:32)
[2018-11-24] MEDS: BRIMONIDINE/TIMOLOL OPH SOLN 5 ML BOTTLE RIGHT EYE SCH (21:36)
[2018-11-25] MEDS: MORPHINE 4 MG/1 ML VIAL IV PRN ×5 (00:13→20:40)
[2018-11-25 04:48] LABS: Basophils % 0.2 % (0.0-0.8); Eosinophils # 0.3 10*3/uL (0.0-0.87); Eosinophils % 2.9 % (0.00-10.9); Hemoglobin 10.3 GM/DL (12.0-16.0); Immature Granulocytes % 0.8 %; Immature Granulocytes Absolute 0.09 #; Lymphocytes # 1.1 10*3/uL (1.4-4.0); Lymphocytes % 10.6 % (21.3-54.2); Mean Corpuscular HGB Conc 31.2 GM/DL (32-36); Mean Corpuscular Hemoglobin 30 PG (27-34); Mean Corpuscular Volume 95.4 FL (87-102); Mean Platelet Volume 11.2 FL (9.6-12.0); Monocytes # 0.8 10*3/uL (0.11-0.8); Monocytes % 7.8 % (1.7-12.7); Neutrophils # 8.3 10*3/uL (1.4-7.4); Neutrophils % 77.7 % (38.7-73.9); Platelet Count 188 T/CUMM (130-400); Red Blood Count 3.46 MC/CUMM (3.8-5.5); Red Cell Distribution Width 15.9 % (9.3-17.3); White Blood Count 10.7 T/CUMM (4-12)
[2018-11-25 05:01] LABS: ABG Base Excess -2.3 MMOL/L (-2.5-2.5); ABG HCO3 21.3 MMOL/L (20-26); ABG Oxygen Saturation 96.5 % (95-100); ABG PCO2 32.7 MM HG (35-48); ABG PH 7.432 (7.35-7.45); ABG PO2 85.8 MM HG (80-95); ABG TCO2 22.3 MMOL/L (23-27); Allen Test Positive
[2018-11-25 05:26] LABS: Albumin 1.9 G/DL (3.4-5.0); Bilirubin,Total 0.8 MG/DL (0.2-1.0); Calcium 8.2 MG/DL (8.5-10.1); Osmolality,Calculated 292.4 MOS/KG (273-304); Potassium 3.8 MMOL/L (3.5-5.1); Total Protein 5.7 G/DL (6.4-8.3)
[2018-11-25] MEDS: HYDROmorphone 2 MG/1 ML VIAL IV PRN (05:29)
[2018-11-25 05:31] LABS: Prealbumin 10.8 MG/DL (20-40)
[2018-11-25] MEDS: INSULIN REGULAR 100 UNIT/ML SUBCUT SCH ×4 (06:34→23:53)
[2018-11-25] MEDS: METOPROLOL TARTRATE 5 MG/5 ML VIAL IV SCH ×3 (06:49→17:20)
[2018-11-25] MEDS: metroNIDAZOLE INJ 250 MG in IV BAG 1 EACH IV SCH ×3 (06:51→23:20)
[2018-11-25] MEDS: ISOSORBIDE MONONITRATE 60 MG TABLET PO SCH (08:26)
[2018-11-25] MEDS: ALPRAZolam 0.25 MG TABLET PO SCH ×3 (08:26→21:16)
[2018-11-25] MEDS: FUROSEMIDE 40 MG/4 ML VIAL IV SCH ×2 (08:26→16:23)
[2018-11-25] MEDS: ENOXAPARIN 80 MG/0.8 ML SYRINGE SUBCUT SCH ×2 (08:27→21:17)
[2018-11-25] MEDS: TERAZOSIN 1 MG CAPSULE PO SCH ×2 (08:27→21:16)
[2018-11-25] MEDS: amLODIPine 10 MG TABLET PO SCH (08:27)
[2018-11-25] MEDS: CARVEDILOL 25 MG TABLET PO SCH ×2 (08:27→21:17)
[2018-11-25] MEDS: PANTOPRAZOLE 40 MG VIAL IV SCH (08:27)
[2018-11-25] MEDS: ASPIRIN CHEW 81 MG TABLET PO SCH (08:27)
[2018-11-25] MEDS: POTASSIUM CHLORIDE RIDER 20 MEQ in PREMIX 1 EACH IV PRN (08:28)
[2018-11-25] MEDS: FAT EMULSION 20% 250 ML IV SCH (14:58)
[2018-11-25] MEDS: TRACE ELEMENTS (5) 1 ML, MULTIVITAMIN INJ 10 ML in AMINO ACIDS/DEXT/LYTES 5-15% 2,000 ML IV SCH (17:20)
[2018-11-25] MEDS: FLUCONAZOLE 150 MG TABLET PO SCH (21:15)
[2018-11-25] MEDS: CITALOPRAM 20 MG TABLET PO SCH (21:16)
[2018-11-25] MEDS: ATORVASTATIN 40 MG TABLET PO SCH (21:17)
[2018-11-25] MEDS: BRIMONIDINE/TIMOLOL OPH SOLN 5 ML BOTTLE RIGHT EYE SCH (21:17)
[2018-11-26] MEDS: MORPHINE 4 MG/1 ML VIAL IV PRN ×4 (00:40→22:05)
[2018-11-26] MEDS: HYDROmorphone 2 MG/1 ML VIAL IV PRN (03:20)
[2018-11-26 04:04] LABS: ABG Base Excess -1.7 MMOL/L (-2.5-2.5); ABG Oxygen Saturation 95.4 % (95-100); ABG PCO2 39.5 MM HG (35-48); ABG PH 7.378 (7.35-7.45); ABG PO2 77.9 MM HG (80-95); ABG TCO2 19.7 MMOL/L (23-27); Allen Test Positive
[2018-11-26 05:30] LABS: Basophils % 0.1 % (0.0-0.8); Eosinophils # 0.3 10*3/uL (0.0-0.87); Eosinophils % 2.9 % (0.00-10.9); Hematocrit 33.4 VOL% (35.7-47.0); Hemoglobin 10.3 GM/DL (12.0-16.0); Immature Granulocytes % 0.6 %; Immature Granulocytes Absolute 0.06 #; Lymphocytes % 10.2 % (21.3-54.2); Mean Corpuscular HGB Conc 30.8 GM/DL (32-36); Mean Corpuscular Hemoglobin 30 PG (27-34); Mean Corpuscular Volume 96.5 FL (87-102); Mean Platelet Volume 11.7 FL (9.6-12.0); Monocytes # 0.8 10*3/uL (0.11-0.8); Monocytes % 8.3 % (1.7-12.7); Neutrophils # 7.6 10*3/uL (1.4-7.4); Neutrophils % 77.9 % (38.7-73.9); Platelet Count 199 T/CUMM (130-400); Red Blood Count 3.46 MC/CUMM (3.8-5.5); Red Cell Distribution Width 15.4 % (9.3-17.3); White Blood Count 9.7 T/CUMM (4-12)
[2018-11-26 05:56] LABS: Albumin 1.9 G/DL (3.4-5.0); Bilirubin,Total 0.5 MG/DL (0.2-1.0); Calcium 8.2 MG/DL (8.5-10.1); Osmolality,Calculated 293.5 MOS/KG (273-304); Potassium 3.8 MMOL/L (3.5-5.1)
[2018-11-26 06:02] LABS: Calcium 8.2 MG/DL (8.5-10.1); Osmolality,Calculated 290.7 MOS/KG (273-304); Potassium 3.8 MMOL/L (3.5-5.1)
[2018-11-26] MEDS: INSULIN REGULAR 100 UNIT/ML SUBCUT SCH ×3 (06:04→19:42)
[2018-11-26] MEDS: metroNIDAZOLE INJ 250 MG in IV BAG 1 EACH IV SCH ×2 (08:29→17:25)
[2018-11-26] MEDS ORDERED: cloNIDine 0.3 MG/24 HR PATCH TRANSDERM SCH (09:00)
[2018-11-26] MEDS: LEVOFLOXACIN INJ 750 MG in PREMIX 1 EACH IV SCH (09:07)
[2018-11-26] MEDS: ENOXAPARIN 80 MG/0.8 ML SYRINGE SUBCUT SCH ×2 (09:08→21:20)
[2018-11-26] MEDS: FUROSEMIDE 40 MG/4 ML VIAL IV SCH ×2 (09:08→17:20)
[2018-11-26] MEDS: POTASSIUM CHLORIDE RIDER 20 MEQ in PREMIX 1 EACH IV PRN (09:08)
[2018-11-26] MEDS ORDERED: FUROSEMIDE 40 MG/4 ML VIAL IV ONE (09:09)
[2018-11-26] MEDS: ALPRAZolam 0.25 MG TABLET PO SCH (10:43)
[2018-11-26] MEDS: PANTOPRAZOLE 40 MG VIAL IV SCH (10:50)
[2018-11-26] MEDS: CARVEDILOL 25 MG TABLET PO SCH ×2 (10:59→21:19)
[2018-11-26] MEDS: ASPIRIN CHEW 81 MG TABLET PO SCH (10:59)
[2018-11-26] MEDS: FLUCONAZOLE 150 MG TABLET PO SCH (10:59)
[2018-11-26] MEDS: ISOSORBIDE MONONITRATE 60 MG TABLET PO SCH (10:59)
[2018-11-26] MEDS: amLODIPine 10 MG TABLET PO SCH (11:00)
[2018-11-26] MEDS: FAT EMULSION 20% 250 ML IV SCH (14:58)
[2018-11-26] MEDS: TRACE ELEMENTS (5) 1 ML, MULTIVITAMIN INJ 10 ML in AMINO ACIDS/DEXT/LYTES 5-15% 2,000 ML IV SCH (17:29)
[2018-11-26] MEDS: ONDANSETRON 4 MG/2 ML VIAL IV PRN (19:11)
[2018-11-26] MEDS: ATORVASTATIN 40 MG TABLET PO SCH (21:19)
[2018-11-26] MEDS: TERAZOSIN 1 MG CAPSULE PO SCH (21:19)
[2018-11-26] MEDS: BRIMONIDINE/TIMOLOL OPH SOLN 5 ML BOTTLE RIGHT EYE SCH (21:20)
[2018-11-26] MEDS: CITALOPRAM 20 MG TABLET PO SCH (21:20)
[2018-11-27] MEDS: metroNIDAZOLE INJ 250 MG in IV BAG 1 EACH IV SCH ×3 (00:10→16:29)
[2018-11-27] MEDS: ONDANSETRON 4 MG/2 ML VIAL IV PRN (00:11)
[2018-11-27] MEDS: INSULIN REGULAR 100 UNIT/ML SUBCUT SCH ×4 (00:25→18:09)
[2018-11-27 03:54] LABS: ABG Base Excess -1.3 MMOL/L (-2.5-2.5); ABG HCO3 23.3 MMOL/L (20-26); ABG Oxygen Saturation 96.7 % (95-100); ABG PCO2 37.2 MM HG (35-48); ABG PH 7.402 (7.35-7.45); ABG PO2 82.5 MM HG (80-95); ABG TCO2 20.9 MMOL/L (23-27); Allen Test Positive
[2018-11-27] MEDS: MORPHINE 4 MG/1 ML VIAL IV PRN ×2 (04:00→06:00)
[2018-11-27 05:44] LABS: Calcium 8.1 MG/DL (8.5-10.1); Osmolality,Calculated 293.7 MOS/KG (273-304); Potassium 3.9 MMOL/L (3.5-5.1)
[2018-11-27 06:03] LABS: Basophils % 0.1 % (0.0-0.8); Eosinophils # 0.1 10*3/uL (0.0-0.87); Eosinophils % 0.8 % (0.00-10.9); Hematocrit 31.5 VOL% (35.7-47.0); Hemoglobin 9.9 GM/DL (12.0-16.0); Immature Granulocytes % 0.6 %; Immature Granulocytes Absolute 0.06 #; Lymphocytes # 0.8 10*3/uL (1.4-4.0); Lymphocytes % 7.7 % (21.3-54.2); Mean Corpuscular HGB Conc 31.4 GM/DL (32-36); Mean Corpuscular Hemoglobin 30 PG (27-34); Mean Corpuscular Volume 94.9 FL (87-102); Mean Platelet Volume 12.3 FL (9.6-12.0); Monocytes # 0.8 10*3/uL (0.11-0.8); Monocytes % 7.4 % (1.7-12.7); Neutrophils % 83.4 % (38.7-73.9); Platelet Count 200 T/CUMM (130-400); Red Blood Count 3.32 MC/CUMM (3.8-5.5); Red Cell Distribution Width 15.1 % (9.3-17.3); White Blood Count 10.7 T/CUMM (4-12)
[2018-11-27] MEDS: POTASSIUM CHLORIDE RIDER 10 MEQ in PREMIX 1 EACH IV PRN (06:04)
[2018-11-27] MEDS: amLODIPine 10 MG TABLET PO SCH (09:03)
[2018-11-27] MEDS: FUROSEMIDE 40 MG TABLET PO SCH ×2 (09:03→17:00)
[2018-11-27] MEDS: CARVEDILOL 25 MG TABLET PO SCH ×2 (09:03→20:30)
[2018-11-27] MEDS: ENOXAPARIN 80 MG/0.8 ML SYRINGE SUBCUT SCH ×2 (09:04→20:30)
[2018-11-27] MEDS: ASPIRIN CHEW 81 MG TABLET PO SCH (09:04)
[2018-11-27] MEDS: PANTOPRAZOLE 40 MG VIAL IV SCH (09:04)
[2018-11-27] MEDS: FLUCONAZOLE 150 MG TABLET PO SCH (09:19)
[2018-11-27] MEDS ORDERED: ALBUTEROL/IPRATROPIUM 3 ML NEB RESP TX PRN (10:27)
[2018-11-27] MEDS ORDERED: LIDOCAINE 1%/EPI INJ 20 ML VIAL ONE (11:21)
[2018-11-27] MEDS: ISOSORBIDE MONONITRATE 60 MG TABLET PO SCH (12:00)
[2018-11-27] MEDS ORDERED: MIDAZOLAM 2 MG/2 ML VIAL ONE (13:11)
[2018-11-27] MEDS ORDERED: KETAMINE 500 MG/10 ML VIAL ONE (13:12)
[2018-11-27] MEDS: ALBUTEROL/IPRATROPIUM 3 ML NEB RESP TX SCH ×2 (13:32→19:28)
[2018-11-27] MEDS: FAT EMULSION 20% 250 ML IV SCH (14:30)
[2018-11-27] MEDS: TRACE ELEMENTS (5) 1 ML, MULTIVITAMIN INJ 10 ML in AMINO ACIDS/DEXT/LYTES 5-15% 2,000 ML IV SCH (17:12)
[2018-11-27 18:45] LABS: Basophils % 0.3 % (0.0-0.8); Eosinophils # 0.1 10*3/uL (0.0-0.87); Eosinophils % 1.2 % (0.00-10.9); Hematocrit 32.4 VOL% (35.7-47.0); Hemoglobin 10.2 GM/DL (12.0-16.0); Immature Granulocytes % 0.6 %; Immature Granulocytes Absolute 0.07 #; Lymphocytes # 0.9 10*3/uL (1.4-4.0); Lymphocytes % 7.8 % (21.3-54.2); Mean Corpuscular HGB Conc 31.5 GM/DL (32-36); Mean Corpuscular Hemoglobin 30 PG (27-34); Mean Corpuscular Volume 96.4 FL (87-102); Monocytes # 0.9 10*3/uL (0.11-0.8); Monocytes % 7.5 % (1.7-12.7); Neutrophils # 9.5 10*3/uL (1.4-7.4); Neutrophils % 82.6 % (38.7-73.9); Platelet Count 207 T/CUMM (130-400); Red Blood Count 3.36 MC/CUMM (3.8-5.5); Red Cell Distribution Width 15.1 % (9.3-17.3); White Blood Count 11.6 T/CUMM (4-12)
[2018-11-27 18:58] LABS: Osmolality,Calculated 295.7 MOS/KG (273-304); Potassium 3.9 MMOL/L (3.5-5.1)
[2018-11-27] MEDS: BRIMONIDINE/TIMOLOL OPH SOLN 5 ML BOTTLE RIGHT EYE SCH (20:30)
[2018-11-27] MEDS: ATORVASTATIN 40 MG TABLET PO SCH (20:30)
[2018-11-27] MEDS: TERAZOSIN 1 MG CAPSULE PO SCH (20:30)
[2018-11-27] MEDS: CITALOPRAM 20 MG TABLET PO SCH (20:30)
[2018-11-27] MEDS ORDERED: PHENOL 1.4% THROAT SPRAY 177 ML BOTTLE PO PRN (21:32)
[2018-11-28] MEDS: ALBUTEROL/IPRATROPIUM 3 ML NEB RESP TX SCH ×4 (00:03→19:32)
[2018-11-28] MEDS: metroNIDAZOLE INJ 250 MG in IV BAG 1 EACH IV SCH ×3 (01:20→16:51)
[2018-11-28] MEDS: hydrALAZINE 20 MG/1 ML VIAL IV PRN (03:56)
[2018-11-28] MEDS: INSULIN REGULAR 100 UNIT/ML SUBCUT SCH ×4 (05:22→18:34)
[2018-11-28 06:05] LABS: Basophils % 0.1 % (0.0-0.8); Eosinophils # 0.1 10*3/uL (0.0-0.87); Eosinophils % 0.8 % (0.00-10.9); Hematocrit 31.3 VOL% (35.7-47.0); Hemoglobin 9.8 GM/DL (12.0-16.0); Immature Granulocytes % 0.5 %; Immature Granulocytes Absolute 0.06 #; Lymphocytes # 0.7 10*3/uL (1.4-4.0); Lymphocytes % 6.4 % (21.3-54.2); Mean Corpuscular HGB Conc 31.3 GM/DL (32-36); Mean Corpuscular Hemoglobin 30 PG (27-34); Mean Corpuscular Volume 94.6 FL (87-102); Monocytes # 0.9 10*3/uL (0.11-0.8); Monocytes % 7.5 % (1.7-12.7); Neutrophils # 9.7 10*3/uL (1.4-7.4); Neutrophils % 84.7 % (38.7-73.9); Platelet Count 206 T/CUMM (130-400); Red Blood Count 3.31 MC/CUMM (3.8-5.5); Red Cell Distribution Width 14.8 % (9.3-17.3); White Blood Count 11.4 T/CUMM (4-12)
[2018-11-28 06:18] LABS: Albumin 1.9 G/DL (3.4-5.0); Bilirubin,Total 0.5 MG/DL (0.2-1.0); Calcium 8.2 MG/DL (8.5-10.1); Osmolality,Calculated 293.8 MOS/KG (273-304); Prealbumin 13.2 MG/DL (20-40)
[2018-11-28] MEDS: PANTOPRAZOLE 40 MG VIAL IV SCH (09:44)
[2018-11-28] MEDS: ASPIRIN CHEW 81 MG TABLET PO SCH (09:44)
[2018-11-28] MEDS: CARVEDILOL 25 MG TABLET PO SCH ×2 (09:44→20:51)
[2018-11-28] MEDS: amLODIPine 10 MG TABLET PO SCH (09:44)
[2018-11-28] MEDS: FUROSEMIDE 40 MG TABLET PO SCH ×2 (09:44→16:57)
[2018-11-28] MEDS: FLUCONAZOLE 150 MG TABLET PO SCH (09:45)
[2018-11-28] MEDS: ISOSORBIDE MONONITRATE 60 MG TABLET PO SCH ×2 (09:45→09:57)
[2018-11-28] MEDS: LEVOFLOXACIN INJ 750 MG in PREMIX 1 EACH IV SCH (09:48)
[2018-11-28] MEDS: PIPERACILLIN/TAZOBACTAM 3,375 MG in SODIUM CHLORIDE 0.9% 100 ML IV SCH ×2 (11:17→23:39)
[2018-11-28] MEDS: FAT EMULSION 20% 250 ML IV SCH (14:39)
[2018-11-28] MEDS: TERAZOSIN 1 MG CAPSULE PO SCH (20:51)
[2018-11-28] MEDS: CITALOPRAM 20 MG TABLET PO SCH (20:51)
[2018-11-28] MEDS: ATORVASTATIN 40 MG TABLET PO SCH (20:53)
[2018-11-28] MEDS: ENOXAPARIN 80 MG/0.8 ML SYRINGE SUBCUT SCH (21:04)
[2018-11-28] MEDS: BRIMONIDINE/TIMOLOL OPH SOLN 5 ML BOTTLE RIGHT EYE SCH (21:05)
[2018-11-29] MEDS: TRACE ELEMENTS (5) 1 ML, MULTIVITAMIN INJ 10 ML in AMINO ACIDS/DEXT/LYTES 5-15% 2,000 ML IV SCH ×2 (00:13→18:17)
[2018-11-29] MEDS: ALBUTEROL/IPRATROPIUM 3 ML NEB RESP TX SCH ×4 (00:32→20:46)
[2018-11-29] MEDS: INSULIN REGULAR 100 UNIT/ML SUBCUT SCH ×4 (00:50→18:48)
[2018-11-29] MEDS: metroNIDAZOLE INJ 250 MG in IV BAG 1 EACH IV SCH ×3 (04:20→18:18)
[2018-11-29 05:28] LABS: Basophils % 0.1 % (0.0-0.8); Eosinophils % 0.2 % (0.00-10.9); Hematocrit 28.5 VOL% (35.7-47.0); Hemoglobin 9.1 GM/DL (12.0-16.0); Immature Granulocytes % 0.6 %; Immature Granulocytes Absolute 0.06 #; Lymphocytes # 0.8 10*3/uL (1.4-4.0); Lymphocytes % 7.3 % (21.3-54.2); Mean Corpuscular HGB Conc 31.9 GM/DL (32-36); Mean Corpuscular Hemoglobin 30 PG (27-34); Mean Corpuscular Volume 95.3 FL (87-102); Mean Platelet Volume 12.2 FL (9.6-12.0); Monocytes % 9.1 % (1.7-12.7); Neutrophils % 82.7 % (38.7-73.9); Platelet Count 193 T/CUMM (130-400); Red Blood Count 2.99 MC/CUMM (3.8-5.5); Red Cell Distribution Width 14.8 % (9.3-17.3); White Blood Count 10.8 T/CUMM (4-12)
[2018-11-29 05:49] LABS: Albumin 1.8 G/DL (3.4-5.0); Bilirubin,Total 0.8 MG/DL (0.2-1.0); Calcium 7.8 MG/DL (8.5-10.1); Osmolality,Calculated 300.4 MOS/KG (273-304); Total Protein 5.7 G/DL (6.4-8.3)
[2018-11-29] MEDS ORDERED: FUROSEMIDE 40 MG/4 ML VIAL IV ONE (09:57)
[2018-11-29] MEDS: FUROSEMIDE 40 MG TABLET PO SCH (10:15)
[2018-11-29] MEDS: ASPIRIN CHEW 81 MG TABLET PO SCH (10:15)
[2018-11-29] MEDS: ISOSORBIDE MONONITRATE 60 MG TABLET PO SCH (10:15)
[2018-11-29] MEDS: CARVEDILOL 25 MG TABLET PO SCH ×2 (10:15→22:12)
[2018-11-29] MEDS: amLODIPine 10 MG TABLET PO SCH (10:16)
[2018-11-29] MEDS: PANTOPRAZOLE 40 MG VIAL IV SCH (10:17)
[2018-11-29] MEDS: PIPERACILLIN/TAZOBACTAM 3,375 MG in SODIUM CHLORIDE 0.9% 100 ML IV SCH ×2 (10:25→22:30)
[2018-11-29] MEDS: FAT EMULSION 20% 250 ML IV SCH (14:03)
[2018-11-29] MEDS: FUROSEMIDE 40 MG/4 ML VIAL IV SCH (18:21)
[2018-11-29] MEDS: BRIMONIDINE/TIMOLOL OPH SOLN 5 ML BOTTLE RIGHT EYE SCH (22:11)
[2018-11-29] MEDS: CITALOPRAM 20 MG TABLET PO SCH (22:12)
[2018-11-29] MEDS: ATORVASTATIN 40 MG TABLET PO SCH (22:12)
[2018-11-29] MEDS: TERAZOSIN 1 MG CAPSULE PO SCH (22:12)
[2018-11-29] MEDS: ENOXAPARIN 80 MG/0.8 ML SYRINGE SUBCUT SCH (22:13)
[2018-11-30] MEDS: metroNIDAZOLE INJ 250 MG in IV BAG 1 EACH IV SCH ×3 (00:10→15:51)
[2018-11-30] MEDS: ALBUTEROL/IPRATROPIUM 3 ML NEB RESP TX SCH ×4 (00:58→19:26)
[2018-11-30] MEDS: INSULIN REGULAR 100 UNIT/ML SUBCUT SCH ×4 (01:12→18:00)
[2018-11-30 05:53] LABS: Basophils % 0.1 % (0.0-0.8); Eosinophils # 0.1 10*3/uL (0.0-0.87); Eosinophils % 0.6 % (0.00-10.9); Hematocrit 26.4 VOL% (35.7-47.0); Hemoglobin 8.4 GM/DL (12.0-16.0); Immature Granulocytes % 0.5 %; Immature Granulocytes Absolute 0.05 #; Lymphocytes # 0.8 10*3/uL (1.4-4.0); Lymphocytes % 7.8 % (21.3-54.2); Mean Corpuscular HGB Conc 31.8 GM/DL (32-36); Mean Corpuscular Hemoglobin 30 PG (27-34); Mean Corpuscular Volume 94.3 FL (87-102); Mean Platelet Volume 12.6 FL (9.6-12.0); Monocytes # 0.8 10*3/uL (0.11-0.8); Monocytes % 8.1 % (1.7-12.7); Neutrophils # 8.6 10*3/uL (1.4-7.4); Neutrophils % 82.9 % (38.7-73.9); Platelet Count 206 T/CUMM (130-400); Red Cell Distribution Width 14.6 % (9.3-17.3); White Blood Count 10.3 T/CUMM (4-12)
[2018-11-30 06:18] LABS: Calcium 7.9 MG/DL (8.5-10.1); Osmolality,Calculated 302.4 MOS/KG (273-304); Potassium 3.7 MMOL/L (3.5-5.1)
[2018-11-30] MEDS: LEVOFLOXACIN INJ 750 MG in PREMIX 1 EACH IV SCH (09:02)
[2018-11-30] MEDS: CARVEDILOL 25 MG TABLET PO SCH ×2 (09:04→22:12)
[2018-11-30] MEDS: ISOSORBIDE MONONITRATE 60 MG TABLET PO SCH (09:04)
[2018-11-30] MEDS: ASPIRIN CHEW 81 MG TABLET PO SCH (09:04)
[2018-11-30] MEDS: amLODIPine 10 MG TABLET PO SCH (09:04)
[2018-11-30] MEDS: FUROSEMIDE 40 MG/4 ML VIAL IV SCH ×2 (09:06→15:45)
[2018-11-30] MEDS: PANTOPRAZOLE 40 MG VIAL IV SCH (09:32)
[2018-11-30] MEDS: PIPERACILLIN/TAZOBACTAM 3,375 MG in SODIUM CHLORIDE 0.9% 100 ML IV SCH ×2 (09:34→22:15)
[2018-11-30] MEDS: POTASSIUM CHLORIDE RIDER 10 MEQ in PREMIX 1 EACH IV PRN ×2 (12:54→13:55)
[2018-11-30] MEDS: NYSTATIN 500,000 UNIT/5 ML UDCUP SWISH/SWAL SCH ×3 (12:54→22:14)
[2018-11-30] MEDS: BISACODYL 10 MG SUPP RECTAL PRN (12:55)
[2018-11-30] MEDS: FAT EMULSION 20% 250 ML IV SCH (14:43)
[2018-11-30] MEDS: TRACE ELEMENTS (5) 1 ML, MULTIVITAMIN INJ 10 ML in AMINO ACIDS/DEXT/LYTES 5-15% 2,000 ML IV SCH (18:01)
[2018-11-30] MEDS: TERAZOSIN 1 MG CAPSULE PO SCH (22:12)
[2018-11-30] MEDS: ENOXAPARIN 80 MG/0.8 ML SYRINGE SUBCUT SCH (22:13)
[2018-11-30] MEDS: CITALOPRAM 20 MG TABLET PO SCH (22:13)
[2018-11-30] MEDS: ATORVASTATIN 40 MG TABLET PO SCH (22:14)
[2018-11-30] MEDS: BRIMONIDINE/TIMOLOL OPH SOLN 5 ML BOTTLE RIGHT EYE SCH (22:14)
[2018-12-01] MEDS: metroNIDAZOLE INJ 250 MG in IV BAG 1 EACH IV SCH ×3 (00:32→15:34)
[2018-12-01] MEDS: ALBUTEROL/IPRATROPIUM 3 ML NEB RESP TX SCH ×4 (03:00→19:40)
[2018-12-01 04:17] LABS: Basophils % 0.3 % (0.0-0.8); Hematocrit 28.1 VOL% (35.7-47.0); Hemoglobin 8.9 GM/DL (12.0-16.0); Immature Granulocytes % 0.4 %; Immature Granulocytes Absolute 0.04 #; Lymphocytes # 0.9 10*3/uL (1.4-4.0); Mean Corpuscular HGB Conc 31.7 GM/DL (32-36); Mean Corpuscular Hemoglobin 30 PG (27-34); Mean Corpuscular Volume 94.9 FL (87-102); Mean Platelet Volume 12.5 FL (9.6-12.0); Monocytes # 0.8 10*3/uL (0.11-0.8); Monocytes % 7.6 % (1.7-12.7); Neutrophils # 8.8 10*3/uL (1.4-7.4); Neutrophils % 83.7 % (38.7-73.9); Platelet Count 224 T/CUMM (130-400); Red Blood Count 2.96 MC/CUMM (3.8-5.5); Red Cell Distribution Width 14.7 % (9.3-17.3); White Blood Count 10.6 T/CUMM (4-12)
[2018-12-01 04:31] LABS: Calcium 8.1 MG/DL (8.5-10.1); Osmolality,Calculated 305.4 MOS/KG (273-304); Potassium 3.8 MMOL/L (3.5-5.1)
[2018-12-01] MEDS: INSULIN REGULAR 100 UNIT/ML SUBCUT SCH ×4 (06:49→18:11)
[2018-12-01] MEDS: POTASSIUM CHLORIDE RIDER 10 MEQ in PREMIX 1 EACH IV PRN ×2 (09:12→10:20)
[2018-12-01] MEDS: PANTOPRAZOLE 40 MG VIAL IV SCH (09:21)
[2018-12-01] MEDS: FUROSEMIDE 40 MG/4 ML VIAL IV SCH ×2 (09:23→15:37)
[2018-12-01] MEDS: CARVEDILOL 25 MG TABLET PO SCH ×2 (09:29→23:01)
[2018-12-01] MEDS: NYSTATIN 500,000 UNIT/5 ML UDCUP SWISH/SWAL SCH ×4 (09:29→23:00)
[2018-12-01] MEDS: amLODIPine 10 MG TABLET PO SCH (09:29)
[2018-12-01] MEDS: ASPIRIN CHEW 81 MG TABLET PO SCH (09:29)
[2018-12-01] MEDS: ISOSORBIDE MONONITRATE 60 MG TABLET PO SCH (09:29)
[2018-12-01] MEDS: PIPERACILLIN/TAZOBACTAM 3,375 MG in SODIUM CHLORIDE 0.9% 100 ML IV SCH ×2 (09:31→23:01)
[2018-12-01] MEDS: BISACODYL 10 MG SUPP RECTAL PRN (09:33)
[2018-12-01] MEDS: FAT EMULSION 20% 250 ML IV SCH (15:24)
[2018-12-01] MEDS: FLUCONAZOLE INJ 100 MG in IV BAG 1 EACH IV SCH (15:29)
[2018-12-01] MEDS: TRACE ELEMENTS (5) 1 ML, MULTIVITAMIN INJ 10 ML in AMINO ACIDS/DEXT/LYTES 5-15% 2,000 ML IV SCH (16:07)
[2018-12-01] MEDS: ATORVASTATIN 40 MG TABLET PO SCH (22:59)
[2018-12-01] MEDS: TERAZOSIN 1 MG CAPSULE PO SCH (22:59)
[2018-12-01] MEDS: BRIMONIDINE/TIMOLOL OPH SOLN 5 ML BOTTLE RIGHT EYE SCH (23:00)
[2018-12-01] MEDS: CITALOPRAM 20 MG TABLET PO SCH (23:00)
[2018-12-01] MEDS: ENOXAPARIN 80 MG/0.8 ML SYRINGE SUBCUT SCH (23:00)
[2018-12-02] MEDS: ALBUTEROL/IPRATROPIUM 3 ML NEB RESP TX SCH ×4 (01:13→19:30)
[2018-12-02] MEDS: metroNIDAZOLE INJ 250 MG in IV BAG 1 EACH IV SCH ×3 (03:03→17:12)
[2018-12-02 05:00] LABS: Basophils % 0.2 % (0.0-0.8); Eosinophils # 0.1 10*3/uL (0.0-0.87); Eosinophils % 0.5 % (0.00-10.9); Hematocrit 27.2 VOL% (35.7-47.0); Hemoglobin 8.6 GM/DL (12.0-16.0); Immature Granulocytes % 0.8 %; Immature Granulocytes Absolute 0.08 #; Lymphocytes # 0.9 10*3/uL (1.4-4.0); Lymphocytes % 9.4 % (21.3-54.2); Mean Corpuscular HGB Conc 31.6 GM/DL (32-36); Mean Corpuscular Hemoglobin 30 PG (27-34); Mean Corpuscular Volume 95.1 FL (87-102); Mean Platelet Volume 11.4 FL (9.6-12.0); Monocytes # 0.9 10*3/uL (0.11-0.8); Monocytes % 8.9 % (1.7-12.7); Neutrophils # 7.7 10*3/uL (1.4-7.4); Neutrophils % 80.2 % (38.7-73.9); Platelet Count 238 T/CUMM (130-400); Red Blood Count 2.86 MC/CUMM (3.8-5.5); Red Cell Distribution Width 14.8 % (9.3-17.3); White Blood Count 9.6 T/CUMM (4-12)
[2018-12-02 05:16] LABS: Calcium 8.1 MG/DL (8.5-10.1); Osmolality,Calculated 301.5 MOS/KG (273-304); Potassium 3.8 MMOL/L (3.5-5.1)
[2018-12-02 05:21] LABS: Prealbumin 16.8 MG/DL (20-40)
[2018-12-02] MEDS: INSULIN REGULAR 100 UNIT/ML SUBCUT SCH ×4 (06:33→18:35)
[2018-12-02] MEDS: ONDANSETRON 4 MG/2 ML VIAL IV PRN (08:34)
[2018-12-02] MEDS ORDERED: ISOSORBIDE DINITRATE 20 MG TABLET PO ONE (10:32)
[2018-12-02] MEDS: PANTOPRAZOLE 40 MG VIAL IV SCH (10:35)
[2018-12-02] MEDS: FUROSEMIDE 40 MG/4 ML VIAL IV SCH ×2 (10:35→17:11)
[2018-12-02] MEDS: NYSTATIN 500,000 UNIT/5 ML UDCUP SWISH/SWAL SCH ×4 (10:38→22:35)
[2018-12-02] MEDS: ASPIRIN CHEW 81 MG TABLET PO SCH (10:46)
[2018-12-02] MEDS: CARVEDILOL 25 MG TABLET PO SCH ×2 (10:46→22:27)
[2018-12-02] MEDS: amLODIPine 10 MG TABLET PO SCH (10:46)
[2018-12-02 11:14] LABS: Apearance,Urine CLEAR (Clear); Bacteria,Urine Occasional /HPF (Few); Bilirubin,Urine Negative (Negative); Blood, Urine Small mg/dL (Negative); Glucose,Urine (UA) Negative (Negative); Ketones,Urine Negative (Negative); Mucus,Urine Occasional /LPF (Occasional); Nitrite,Urine Negative (Negative); Protein,Urine Negative; RBC,Urine 6 /HPF (0-4); Squamous Epithelial Cell,Urine Occasional /HPF (0-10); Urine Color Yellow (Yellow); Urine Specific Gravity 1.009 (1.001-1.035); Urine Urobilinogen < 2.0 EU/DL (0.2-1.0); WBC,Urine 9 /HPF (0-6)
[2018-12-02] MEDS: MEROPENEM 500 MG in SODIUM CHLORIDE 0.9% 100 ML IV SCH ×2 (11:37→22:24)
[2018-12-02] MEDS: ISOSORBIDE MONONITRATE 60 MG TABLET PO SCH (12:10)
[2018-12-02] MEDS: FAT EMULSION 20% 250 ML IV SCH (13:38)
[2018-12-02] MEDS: FLUCONAZOLE INJ 100 MG in IV BAG 1 EACH IV SCH (13:38)
[2018-12-02] MEDS: ISOSORBIDE DINITRATE 20 MG TABLET PO SCH ×2 (17:11→22:28)
[2018-12-02] MEDS: TRACE ELEMENTS (5) 1 ML, MULTIVITAMIN INJ 10 ML in AMINO ACIDS/DEXT/LYTES 5-15% 2,000 ML IV SCH (17:18)
[2018-12-02] MEDS: CITALOPRAM 20 MG TABLET PO SCH (22:27)
[2018-12-02] MEDS: ATORVASTATIN 40 MG TABLET PO SCH (22:28)
[2018-12-02] MEDS: ENOXAPARIN 80 MG/0.8 ML SYRINGE SUBCUT SCH (22:28)
[2018-12-02] MEDS: BRIMONIDINE/TIMOLOL OPH SOLN 5 ML BOTTLE RIGHT EYE SCH (22:39)
[2018-12-02] MEDS: TERAZOSIN 1 MG CAPSULE PO SCH (22:46)
[2018-12-03] MEDS: ALBUTEROL/IPRATROPIUM 3 ML NEB RESP TX SCH ×4 (00:11→19:29)
[2018-12-03] MEDS: INSULIN REGULAR 100 UNIT/ML SUBCUT SCH ×4 (02:24→17:39)
[2018-12-03 04:54] LABS: Basophils % 0.3 % (0.0-0.8); Eosinophils # 0.1 10*3/uL (0.0-0.87); Eosinophils % 1.1 % (0.00-10.9); Hematocrit 26.1 VOL% (35.7-47.0); Hemoglobin 8.1 GM/DL (12.0-16.0); Immature Granulocytes % 0.6 %; Immature Granulocytes Absolute 0.05 #; Lymphocytes # 0.9 10*3/uL (1.4-4.0); Lymphocytes % 11.4 % (21.3-54.2); Mean Corpuscular Hemoglobin 30 PG (27-34); Mean Corpuscular Volume 95.3 FL (87-102); Mean Platelet Volume 12.3 FL (9.6-12.0); Monocytes # 0.8 10*3/uL (0.11-0.8); Monocytes % 9.7 % (1.7-12.7); Neutrophils # 6.1 10*3/uL (1.4-7.4); Neutrophils % 76.9 % (38.7-73.9); Platelet Count 238 T/CUMM (130-400); Red Blood Count 2.74 MC/CUMM (3.8-5.5); Red Cell Distribution Width 14.6 % (9.3-17.3); White Blood Count 7.9 T/CUMM (4-12)
[2018-12-03 04:55] LABS: Calcium 7.9 MG/DL (8.5-10.1); Osmolality,Calculated 301.7 MOS/KG (273-304); Potassium 3.9 MMOL/L (3.5-5.1)
[2018-12-03] MEDS: ISOSORBIDE DINITRATE 20 MG TABLET PO SCH ×3 (10:51→20:39)
[2018-12-03] MEDS: amLODIPine 10 MG TABLET PO SCH (10:51)
[2018-12-03] MEDS: CARVEDILOL 25 MG TABLET PO SCH ×2 (10:52→20:37)
[2018-12-03] MEDS: PANTOPRAZOLE 40 MG VIAL IV SCH (10:52)
[2018-12-03] MEDS: ASPIRIN CHEW 81 MG TABLET PO SCH (10:52)
[2018-12-03] MEDS: NYSTATIN 500,000 UNIT/5 ML UDCUP SWISH/SWAL SCH ×4 (10:53→20:39)
[2018-12-03] MEDS: FUROSEMIDE 40 MG/4 ML VIAL IV SCH ×2 (11:03→17:38)
[2018-12-03] MEDS: MEROPENEM 500 MG in SODIUM CHLORIDE 0.9% 100 ML IV SCH (12:03)
[2018-12-03] MEDS: FAT EMULSION 20% 250 ML IV SCH (13:50)
[2018-12-03] MEDS: FLUCONAZOLE INJ 100 MG in IV BAG 1 EACH IV SCH (13:59)
[2018-12-03] MEDS: TRACE ELEMENTS (5) 1 ML, MULTIVITAMIN INJ 10 ML in AMINO ACIDS/DEXT/LYTES 5-15% 2,000 ML IV SCH (17:44)
[2018-12-03] MEDS: TERAZOSIN 1 MG CAPSULE PO SCH (20:37)
[2018-12-03] MEDS: ATORVASTATIN 40 MG TABLET PO SCH (20:39)
[2018-12-03] MEDS: ENOXAPARIN 80 MG/0.8 ML SYRINGE SUBCUT SCH (20:39)
[2018-12-03] MEDS: CITALOPRAM 20 MG TABLET PO SCH (20:39)
[2018-12-03] MEDS: BRIMONIDINE/TIMOLOL OPH SOLN 5 ML BOTTLE RIGHT EYE SCH (20:40)
[2018-12-04] MEDS: MEROPENEM 500 MG in SODIUM CHLORIDE 0.9% 100 ML IV SCH ×3 (00:23→23:35)
[2018-12-04] MEDS: INSULIN REGULAR 100 UNIT/ML SUBCUT SCH ×4 (00:32→18:25)
[2018-12-04] MEDS: ALBUTEROL/IPRATROPIUM 3 ML NEB RESP TX SCH ×4 (01:20→18:52)
[2018-12-04 06:09] LABS: Basophils % 0.1 % (0.0-0.8); Eosinophils # 0.1 10*3/uL (0.0-0.87); Eosinophils % 1.1 % (0.00-10.9); Hemoglobin 7.8 GM/DL (12.0-16.0); Immature Granulocytes % 0.7 %; Immature Granulocytes Absolute 0.05 #; Lymphocytes # 0.8 10*3/uL (1.4-4.0); Lymphocytes % 10.4 % (21.3-54.2); Mean Corpuscular HGB Conc 31.2 GM/DL (32-36); Mean Corpuscular Hemoglobin 30 PG (27-34); Mean Corpuscular Volume 95.8 FL (87-102); Mean Platelet Volume 11.7 FL (9.6-12.0); Monocytes # 0.7 10*3/uL (0.11-0.8); Monocytes % 9.4 % (1.7-12.7); Neutrophils # 5.7 10*3/uL (1.4-7.4); Neutrophils % 78.3 % (38.7-73.9); Platelet Count 235 T/CUMM (130-400); Red Blood Count 2.61 MC/CUMM (3.8-5.5); Red Cell Distribution Width 14.5 % (9.3-17.3); White Blood Count 7.3 T/CUMM (4-12)
[2018-12-04 06:35] LABS: Calcium 8.2 MG/DL (8.5-10.1); Osmolality,Calculated 298.1 MOS/KG (273-304); Potassium 4.3 MMOL/L (3.5-5.1)
[2018-12-04] MEDS: ASPIRIN CHEW 81 MG TABLET PO SCH (09:28)
[2018-12-04] MEDS: ISOSORBIDE DINITRATE 20 MG TABLET PO SCH ×3 (09:28→21:04)
[2018-12-04] MEDS: amLODIPine 10 MG TABLET PO SCH (09:28)
[2018-12-04] MEDS: FUROSEMIDE 40 MG/4 ML VIAL IV SCH ×2 (09:28→16:15)
[2018-12-04] MEDS: CARVEDILOL 25 MG TABLET PO SCH ×2 (09:28→21:04)
[2018-12-04] MEDS: PANTOPRAZOLE 40 MG VIAL IV SCH (09:28)
[2018-12-04] MEDS: NYSTATIN 500,000 UNIT/5 ML UDCUP SWISH/SWAL SCH ×4 (09:29→21:04)
[2018-12-04] MEDS: FAT EMULSION 20% 250 ML IV SCH (13:31)
[2018-12-04] MEDS: FLUCONAZOLE INJ 100 MG in IV BAG 1 EACH IV SCH (13:37)
[2018-12-04] MEDS: TRACE ELEMENTS (5) 1 ML, MULTIVITAMIN INJ 10 ML in AMINO ACIDS/DEXT/LYTES 5-15% 2,000 ML IV SCH (16:49)
[2018-12-04] MEDS: ENOXAPARIN 80 MG/0.8 ML SYRINGE SUBCUT SCH (19:25)
[2018-12-04] MEDS: CITALOPRAM 20 MG TABLET PO SCH (21:04)
[2018-12-04] MEDS: ATORVASTATIN 40 MG TABLET PO SCH (21:09)
[2018-12-04] MEDS: BRIMONIDINE/TIMOLOL OPH SOLN 5 ML BOTTLE RIGHT EYE SCH (21:10)
[2018-12-04] MEDS: TERAZOSIN 1 MG CAPSULE PO SCH (21:13)
[2018-12-05] MEDS: ALBUTEROL/IPRATROPIUM 3 ML NEB RESP TX SCH ×4 (00:26→19:45)
[2018-12-05] MEDS: INSULIN REGULAR 100 UNIT/ML SUBCUT SCH ×4 (00:56→18:02)
[2018-12-05 05:03] LABS: Basophils % 0.1 % (0.0-0.8); Eosinophils # 0.1 10*3/uL (0.0-0.87); Eosinophils % 0.7 % (0.00-10.9); Hematocrit 24.7 VOL% (35.7-47.0); Hemoglobin 7.8 GM/DL (12.0-16.0); Immature Granulocytes % 0.8 %; Immature Granulocytes Absolute 0.07 #; Lymphocytes # 0.7 10*3/uL (1.4-4.0); Lymphocytes % 7.5 % (21.3-54.2); Mean Corpuscular HGB Conc 31.6 GM/DL (32-36); Mean Corpuscular Hemoglobin 30 PG (27-34); Mean Corpuscular Volume 94.3 FL (87-102); Mean Platelet Volume 12.8 FL (9.6-12.0); Monocytes # 0.9 10*3/uL (0.11-0.8); Monocytes % 9.6 % (1.7-12.7); Neutrophils # 7.5 10*3/uL (1.4-7.4); Neutrophils % 81.3 % (38.7-73.9); Platelet Count 265 T/CUMM (130-400); Red Blood Count 2.62 MC/CUMM (3.8-5.5); Red Cell Distribution Width 14.5 % (9.3-17.3); White Blood Count 9.2 T/CUMM (4-12)
[2018-12-05 05:24] LABS: Calcium 8.2 MG/DL (8.5-10.1); Osmolality,Calculated 296.4 MOS/KG (273-304); Potassium 4.4 MMOL/L (3.5-5.1); Prealbumin 17.7 MG/DL (20-40)
[2018-12-05] MEDS: NYSTATIN 500,000 UNIT/5 ML UDCUP SWISH/SWAL SCH ×4 (09:57→21:26)
[2018-12-05] MEDS: MEROPENEM 500 MG in SODIUM CHLORIDE 0.9% 100 ML IV SCH ×2 (09:58→23:00)
[2018-12-05] MEDS: FUROSEMIDE 40 MG/4 ML VIAL IV SCH ×2 (09:58→17:58)
[2018-12-05] MEDS: ASPIRIN CHEW 81 MG TABLET PO SCH (09:58)
[2018-12-05] MEDS: amLODIPine 10 MG TABLET PO SCH (09:58)
[2018-12-05] MEDS: PANTOPRAZOLE 40 MG VIAL IV SCH (09:58)
[2018-12-05] MEDS: ISOSORBIDE DINITRATE 20 MG TABLET PO SCH ×3 (09:58→21:25)
[2018-12-05] MEDS: CARVEDILOL 25 MG TABLET PO SCH ×2 (09:58→21:25)
[2018-12-05] MEDS ORDERED: SODIUM CHLORIDE 0.9% 1,000 ML IV PRN (10:39)
[2018-12-05] MEDS: FLUCONAZOLE INJ 100 MG in IV BAG 1 EACH IV SCH (14:52)
[2018-12-05] MEDS: FAT EMULSION 20% 250 ML IV SCH (14:52)
[2018-12-05] MEDS: TRACE ELEMENTS (5) 1 ML, MULTIVITAMIN INJ 10 ML in AMINO ACIDS/DEXT/LYTES 5-15% 2,000 ML IV SCH (19:29)
[2018-12-05] MEDS: ENOXAPARIN 80 MG/0.8 ML SYRINGE SUBCUT SCH (21:22)
[2018-12-05] MEDS: TERAZOSIN 1 MG CAPSULE PO SCH (21:25)
[2018-12-05] MEDS: BRIMONIDINE/TIMOLOL OPH SOLN 5 ML BOTTLE RIGHT EYE SCH (21:25)
[2018-12-05] MEDS: ATORVASTATIN 40 MG TABLET PO SCH (21:25)
[2018-12-05] MEDS: CITALOPRAM 20 MG TABLET PO SCH (21:25)
[2018-12-06] MEDS: INSULIN REGULAR 100 UNIT/ML SUBCUT SCH ×3 (00:28→12:09)
[2018-12-06] MEDS: ALBUTEROL/IPRATROPIUM 3 ML NEB RESP TX SCH ×2 (00:30→07:50)
[2018-12-06 04:36] LABS: Eosinophils # 0.1 10*3/uL (0.0-0.87); Hematocrit 27.2 VOL% (35.7-47.0); Hemoglobin 8.5 GM/DL (12.0-16.0); Immature Granulocytes % 1.2 %; Immature Granulocytes Absolute 0.08 #; Lymphocytes # 0.7 10*3/uL (1.4-4.0); Lymphocytes % 10.4 % (21.3-54.2); Mean Corpuscular HGB Conc 31.3 GM/DL (32-36); Mean Corpuscular Hemoglobin 29 PG (27-34); Mean Corpuscular Volume 93.2 FL (87-102); Mean Platelet Volume 12.2 FL (9.6-12.0); Monocytes # 0.8 10*3/uL (0.11-0.8); Monocytes % 11.4 % (1.7-12.7); Neutrophils # 5.2 10*3/uL (1.4-7.4); Platelet Count 276 T/CUMM (130-400); Red Blood Count 2.92 MC/CUMM (3.8-5.5); Red Cell Distribution Width 15.1 % (9.3-17.3)
[2018-12-06 04:52] LABS: Calcium 8.3 MG/DL (8.5-10.1); Potassium 4.5 MMOL/L (3.5-5.1)
[2018-12-06] MEDS: CARVEDILOL 25 MG TABLET PO SCH (10:06)
[2018-12-06] MEDS: ASPIRIN CHEW 81 MG TABLET PO SCH (10:07)
[2018-12-06] MEDS: ISOSORBIDE DINITRATE 20 MG TABLET PO SCH (10:07)
[2018-12-06] MEDS: amLODIPine 10 MG TABLET PO SCH (10:07)
[2018-12-06] MEDS: NYSTATIN 500,000 UNIT/5 ML UDCUP SWISH/SWAL SCH (10:08)
[2018-12-06] MEDS: FUROSEMIDE 40 MG/4 ML VIAL IV SCH (10:12)
[2018-12-06] MEDS: PANTOPRAZOLE 40 MG VIAL IV SCH (10:14)
[2018-12-06] MEDS: MEROPENEM 500 MG in SODIUM CHLORIDE 0.9% 100 ML IV SCH (10:19)
[2018-12-06 12:25] VITALS: BP 117/47
== END 2018-12-06 13:23 | disposition hospice, home (50) | DRG 329 ==
LOC: EDBD → EDUNIT# → N.ED 21:27 → N.EDINP 11-17 01:07 → N.TELEN 11-17 01:47 → N.ICU 11-21 14:52 → N.TELES 11-28 14:18
PROVIDERS: ADMIT Family Medicine; ATTEND Family Medicine

== ENCOUNTER 2019-07-13 12:34 | Inpatient (IN) ==
[2019-07-13] MEDS ORDERED: SODIUM CHLORIDE 0.9% 500 ML IV STA (12:49)
[2019-07-13] MEDS ORDERED: ALBUTEROL/IPRATROPIUM 3 ML NEB RESP TX STA (13:07)
[2019-07-13 13:15] LABS: Basophils % 0.6 % (0.0-0.8); Eosinophils # 0.3 10*3/uL (0.0-0.87); Eosinophils % 4.2 % (0.00-10.9); Hematocrit 30.7 VOL% (35.7-47.0); Hemoglobin 9.5 GM/DL (12.0-16.0); Immature Granulocytes % 0.4 %; Immature Granulocytes Absolute 0.03 #; Lymphocytes # 1.5 10*3/uL (1.4-4.0); Lymphocytes % 20.8 % (21.3-54.2); Mean Corpuscular HGB Conc 30.9 GM/DL (32-36); Mean Corpuscular Volume 97.2 FL (87-102); Mean Platelet Volume 10.4 FL (9.6-12.0); Monocytes % 10.6 % (1.7-12.7); Neutrophils % 63.4 % (38.7-73.9); Platelet Count 204 T/CUMM (130-400); Red Blood Count 3.16 MC/CUMM (3.8-5.5); Red Cell Distribution Width 13.9 % (9.3-17.3); White Blood Count 7.2 T/CUMM (4-12)
[2019-07-13 13:36] LABS: Alanine Aminotransferase < 9 U/L (13-56); Albumin 2.7 G/DL (3.4-5.0); Alkaline Phosphatase 80 U/L (45-117); Aspartate Amino Transferase 8 U/L (0-37); Blood Urea Nitrogen 45 MG/DL (7-18); Calcium 8.8 MG/DL (8.5-10.1); Estimated Glom Filtration Rate 16 ML/MIN; Glucose 109 MG/DL (74-106); Osmolality,Calculated 295.1 MOS/KG (273-304); Total Protein 6.8 G/DL (6.4-8.3); Troponin I < 0.015 NG/ML (0.00-0.045)
[2019-07-13 14:03] LABS: PT Patient Result 10.9 SECS (9.6-12.2)
[2019-07-13 14:11] LABS: Apearance,Urine CLEAR (Clear); Bacteria,Urine Occasional /HPF (Few); Bilirubin,Urine Negative (Negative); Blood, Urine Negative (Negative); Glucose,Urine (UA) Negative (Negative); Hyaline Casts,Urine 4 /LPF (0-3); Ketones,Urine Negative (Negative); Mucus,Urine Occasional /LPF (Occasional); Nitrite,Urine Negative (Negative); Protein,Urine Negative; Squamous Epithelial Cell,Urine Occasional /HPF (0-10); Urine Color Yellow (Yellow); Urine Urobilinogen < 2.0 EU/DL (0.2-1.0)
[2019-07-13] MEDS ORDERED: LEVOFLOXACIN INJ 750 MG in PREMIX 1 EACH IV STA (14:12)
[2019-07-13] MEDS ORDERED: ONDANSETRON 4 MG/2 ML VIAL IV PRN (14:20)
[2019-07-13] MEDS ORDERED: PROMETHAZINE 25 MG/1 ML VIAL IM PRN (14:20)
[2019-07-13] MEDS: SODIUM CHLORIDE 0.9% 1,000 ML IV SCH (15:21)
[2019-07-13] MEDS: DOCUSATE SODIUM 100 MG CAPSULE PO SCH (20:37)
[2019-07-13] MEDS: ALBUTEROL/IPRATROPIUM 3 ML NEB RESP TX SCH (20:50)
[2019-07-14] MEDS: ALBUTEROL/IPRATROPIUM 3 ML NEB RESP TX SCH ×4 (00:55→20:00)
[2019-07-14 04:57] LABS: Basophils % 0.6 % (0.0-0.8); Eosinophils # 0.4 10*3/uL (0.0-0.87); Eosinophils % 6.5 % (0.00-10.9); Hematocrit 30.6 VOL% (35.7-47.0); Hemoglobin 9.3 GM/DL (12.0-16.0); Immature Granulocytes % 0.7 %; Immature Granulocytes Absolute 0.04 #; Lymphocytes # 1.5 10*3/uL (1.4-4.0); Lymphocytes % 28.1 % (21.3-54.2); Mean Corpuscular HGB Conc 30.4 GM/DL (32-36); Mean Corpuscular Volume 96.8 FL (87-102); Mean Platelet Volume 10.8 FL (9.6-12.0); Monocytes % 12.1 % (1.7-12.7); Platelet Count 208 T/CUMM (130-400); Red Blood Count 3.16 MC/CUMM (3.8-5.5); White Blood Count 5.4 T/CUMM (4-12)
[2019-07-14 05:19] LABS: Albumin 2.7 G/DL (3.4-5.0); Bilirubin,Total 0.6 MG/DL (0.2-1.0); Calcium 9.2 MG/DL (8.5-10.1); Osmolality,Calculated 296.8 MOS/KG (273-304)
[2019-07-14] MEDS: SODIUM CHLORIDE 0.9% 1,000 ML IV SCH ×3 (07:13→17:46)
[2019-07-14] MEDS ORDERED: NITROGLYCERIN SL 0.4 MG TABLET SL PRN (08:03)
[2019-07-14] MEDS: CELECOXIB 200 MG CAPSULE PO SCH ×2 (10:01→21:12)
[2019-07-14] MEDS: ISOSORBIDE MONONITRATE 60 MG TABLET PO SCH (10:05)
[2019-07-14] MEDS: ASPIRIN EC 81 MG TABLET PO SCH (10:05)
[2019-07-14] MEDS: POTASSIUM CHLORIDE 10 MEQ TABLET PO SCH (10:06)
[2019-07-14] MEDS: DOCUSATE SODIUM 100 MG CAPSULE PO SCH ×2 (10:06→21:11)
[2019-07-14] MEDS: carvediloL 25 MG TABLET PO SCH ×2 (10:07→21:13)
[2019-07-14] MEDS: FUROSEMIDE 40 MG TABLET PO SCH (10:07)
[2019-07-14] MEDS: PANTOPRAZOLE 40 MG TABLET PO SCH (10:07)
[2019-07-14] MEDS: APIXABAN 5 MG TABLET PO SCH ×2 (10:08→21:12)
[2019-07-14] MEDS: methylPREDNISolone SOD SUC 40 MG/1 ML VIAL IV SCH ×2 (10:12→18:17)
[2019-07-14] MEDS: BRIMONIDINE/TIMOLOL OPH SOLN 5 ML BOTTLE RIGHT EYE SCH (10:14)
[2019-07-14] MEDS: NEOMYCIN/POLYMYXIN/DEXAMETH OPH OINT 3.5 GM TUBE BOTH EYES SCH ×2 (11:54→21:11)
[2019-07-14] MEDS: ACETAMINOPHEN 325 MG TABLET PO PRN (11:54)
[2019-07-14] MEDS: TERAZOSIN 1 MG CAPSULE PO SCH (21:12)
[2019-07-14] MEDS: SERTRALINE 50 MG TABLET PO SCH (21:13)
[2019-07-15] MEDS: methylPREDNISolone SOD SUC 40 MG/1 ML VIAL IV SCH ×3 (00:22→16:31)
[2019-07-15] MEDS: ALBUTEROL/IPRATROPIUM 3 ML NEB RESP TX SCH ×4 (00:37→19:12)
[2019-07-15] MEDS: SODIUM CHLORIDE 0.9% 1,000 ML IV SCH ×2 (01:55→23:02)
[2019-07-15 04:32] LABS: Basophils % 0.2 % (0.0-0.8); Hematocrit 29.8 VOL% (35.7-47.0); Hemoglobin 9.2 GM/DL (12.0-16.0); Immature Granulocytes % 2.5 %; Immature Granulocytes Absolute 0.13 #; Lymphocytes # 0.7 10*3/uL (1.4-4.0); Lymphocytes % 13.2 % (21.3-54.2); Mean Corpuscular HGB Conc 30.9 GM/DL (32-36); Mean Corpuscular Volume 96.4 FL (87-102); Mean Platelet Volume 10.6 FL (9.6-12.0); Monocytes % 1.2 % (1.7-12.7); Neutrophils % 82.9 % (38.7-73.9); Platelet Count 219 T/CUMM (130-400); Red Blood Count 3.09 MC/CUMM (3.8-5.5); Red Cell Distribution Width 14.1 % (9.3-17.3); White Blood Count 5.1 T/CUMM (4-12)
[2019-07-15 04:54] LABS: Alanine Aminotransferase 10 U/L (13-56); Albumin 2.7 G/DL (3.4-5.0); Alkaline Phosphatase 73 U/L (45-117); Aspartate Amino Transferase 10 U/L (0-37); Bilirubin,Total < 0.39 MG/DL (0.2-1.0); Blood Urea Nitrogen 37 MG/DL (7-18); Calcium 9.2 MG/DL (8.5-10.1); Estimated Glom Filtration Rate 18 ML/MIN; Glucose 168 MG/DL (74-106); Osmolality,Calculated 293.3 MOS/KG (273-304); Thyroid Stimulating Hormone 0.675 uIU/ml (0.358-3.74)
[2019-07-15] MEDS: ASPIRIN EC 81 MG TABLET PO SCH (08:52)
[2019-07-15] MEDS: carvediloL 25 MG TABLET PO SCH ×2 (08:52→21:29)
[2019-07-15] MEDS: APIXABAN 5 MG TABLET PO SCH ×2 (08:53→21:29)
[2019-07-15] MEDS: DOCUSATE SODIUM 100 MG CAPSULE PO SCH ×2 (08:53→21:29)
[2019-07-15] MEDS: PANTOPRAZOLE 40 MG TABLET PO SCH (08:53)
[2019-07-15] MEDS: POTASSIUM CHLORIDE 10 MEQ TABLET PO SCH (08:54)
[2019-07-15] MEDS: FUROSEMIDE 40 MG TABLET PO SCH (08:54)
[2019-07-15] MEDS: ISOSORBIDE MONONITRATE 60 MG TABLET PO SCH (08:54)
[2019-07-15] MEDS: CELECOXIB 200 MG CAPSULE PO SCH ×2 (08:54→21:29)
[2019-07-15] MEDS: NEOMYCIN/POLYMYXIN/DEXAMETH OPH OINT 3.5 GM TUBE BOTH EYES SCH ×2 (08:55→21:29)
[2019-07-15] MEDS: BRIMONIDINE/TIMOLOL OPH SOLN 5 ML BOTTLE RIGHT EYE SCH (08:56)
[2019-07-15] MEDS ORDERED: LEVOFLOXACIN INJ 500 MG in PREMIX 1 EACH IV SCH (14:00)
[2019-07-15] MEDS: TERAZOSIN 1 MG CAPSULE PO SCH (21:29)
[2019-07-15] MEDS: SERTRALINE 50 MG TABLET PO SCH (21:29)
[2019-07-15] MEDS: TEMAZEPAM 15 MG CAPSULE PO PRN (21:29)
[2019-07-16] MEDS: ALBUTEROL/IPRATROPIUM 3 ML NEB RESP TX SCH ×4 (00:15→19:40)
[2019-07-16] MEDS: methylPREDNISolone SOD SUC 40 MG/1 ML VIAL IV SCH ×4 (00:28→23:55)
[2019-07-16] MEDS: SODIUM CHLORIDE 0.9% 1,000 ML IV SCH ×2 (04:29→16:50)
[2019-07-16 04:32] LABS: Basophils % 0.1 % (0.0-0.8); Hematocrit 29.3 VOL% (35.7-47.0); Immature Granulocytes % 1.7 %; Immature Granulocytes Absolute 0.15 #; Lymphocytes # 0.7 10*3/uL (1.4-4.0); Lymphocytes % 7.8 % (21.3-54.2); Mean Corpuscular HGB Conc 30.7 GM/DL (32-36); Mean Corpuscular Volume 97.3 FL (87-102); Mean Platelet Volume 10.6 FL (9.6-12.0); Neutrophils % 88.4 % (38.7-73.9); Platelet Count 212 T/CUMM (130-400); Red Blood Count 3.01 MC/CUMM (3.8-5.5); Red Cell Distribution Width 14.3 % (9.3-17.3); White Blood Count 8.6 T/CUMM (4-12)
[2019-07-16 04:59] LABS: Albumin 2.7 G/DL (3.4-5.0); Bilirubin,Total 0.4 MG/DL (0.2-1.0); Calcium 8.6 MG/DL (8.5-10.1); Osmolality,Calculated 303.8 MOS/KG (273-304); Total Protein 6.6 G/DL (6.4-8.3)
[2019-07-16] MEDS: NEOMYCIN/POLYMYXIN/DEXAMETH OPH OINT 3.5 GM TUBE BOTH EYES SCH ×2 (09:05→21:25)
[2019-07-16] MEDS: APIXABAN 5 MG TABLET PO SCH ×2 (09:05→21:24)
[2019-07-16] MEDS: FUROSEMIDE 40 MG TABLET PO SCH (09:05)
[2019-07-16] MEDS: BRIMONIDINE/TIMOLOL OPH SOLN 5 ML BOTTLE RIGHT EYE SCH (09:05)
[2019-07-16] MEDS: ASPIRIN EC 81 MG TABLET PO SCH (09:06)
[2019-07-16] MEDS: DOCUSATE SODIUM 100 MG CAPSULE PO SCH ×2 (09:06→21:24)
[2019-07-16] MEDS: POTASSIUM CHLORIDE 10 MEQ TABLET PO SCH (09:06)
[2019-07-16] MEDS: carvediloL 25 MG TABLET PO SCH ×2 (09:06→21:24)
[2019-07-16] MEDS: PANTOPRAZOLE 40 MG TABLET PO SCH (09:06)
[2019-07-16] MEDS: ISOSORBIDE MONONITRATE 60 MG TABLET PO SCH (09:06)
[2019-07-16] MEDS: CELECOXIB 200 MG CAPSULE PO SCH ×2 (09:06→21:24)
[2019-07-16] MEDS: ACETAMINOPHEN 325 MG TABLET PO PRN (12:48)
[2019-07-16] MEDS: BENZONATATE 100 MG CAPSULE PO PRN (13:32)
[2019-07-16] MEDS: TERAZOSIN 1 MG CAPSULE PO SCH (21:24)
[2019-07-16] MEDS: SERTRALINE 50 MG TABLET PO SCH (21:24)
[2019-07-16] MEDS: TEMAZEPAM 15 MG CAPSULE PO PRN (21:24)
[2019-07-17] MEDS: ALBUTEROL/IPRATROPIUM 3 ML NEB RESP TX SCH ×4 (02:01→19:26)
[2019-07-17 04:49] LABS: Basophils % 0.2 % (0.0-0.8); Hematocrit 29.6 VOL% (35.7-47.0); Hemoglobin 9.1 GM/DL (12.0-16.0); Immature Granulocytes % 4.6 %; Immature Granulocytes Absolute 0.42 #; Lymphocytes # 0.8 10*3/uL (1.4-4.0); Lymphocytes % 8.7 % (21.3-54.2); Mean Corpuscular HGB Conc 30.7 GM/DL (32-36); Mean Platelet Volume 10.4 FL (9.6-12.0); Monocytes % 2.3 % (1.7-12.7); Neutrophils % 84.2 % (38.7-73.9); Platelet Count 212 T/CUMM (130-400); Red Blood Count 2.99 MC/CUMM (3.8-5.5); Red Cell Distribution Width 14.4 % (9.3-17.3); White Blood Count 9.1 T/CUMM (4-12)
[2019-07-17 05:25] LABS: Albumin 2.5 G/DL (3.4-5.0); Bilirubin,Total 0.9 MG/DL (0.2-1.0); Calcium 8.5 MG/DL (8.5-10.1); Total Protein 6.1 G/DL (6.4-8.3)
[2019-07-17] MEDS: SODIUM CHLORIDE 0.9% 1,000 ML IV SCH ×2 (06:09→11:58)
[2019-07-17] MEDS: POTASSIUM CHLORIDE 10 MEQ TABLET PO SCH (08:19)
[2019-07-17] MEDS: FUROSEMIDE 40 MG TABLET PO SCH (08:19)
[2019-07-17] MEDS: APIXABAN 5 MG TABLET PO SCH ×2 (08:19→20:54)
[2019-07-17] MEDS: ISOSORBIDE MONONITRATE 60 MG TABLET PO SCH (08:20)
[2019-07-17] MEDS: PANTOPRAZOLE 40 MG TABLET PO SCH (08:20)
[2019-07-17] MEDS: CELECOXIB 200 MG CAPSULE PO SCH ×2 (08:20→20:54)
[2019-07-17] MEDS: DOCUSATE SODIUM 100 MG CAPSULE PO SCH ×2 (08:20→20:53)
[2019-07-17] MEDS: ASPIRIN EC 81 MG TABLET PO SCH (08:20)
[2019-07-17] MEDS: carvediloL 25 MG TABLET PO SCH ×2 (08:20→20:53)
[2019-07-17] MEDS: methylPREDNISolone SOD SUC 40 MG/1 ML VIAL IV SCH ×2 (08:20→15:34)
[2019-07-17] MEDS: BRIMONIDINE/TIMOLOL OPH SOLN 5 ML BOTTLE RIGHT EYE SCH (08:21)
[2019-07-17] MEDS: NEOMYCIN/POLYMYXIN/DEXAMETH OPH OINT 3.5 GM TUBE BOTH EYES SCH ×2 (08:21→20:53)
[2019-07-17] MEDS: cefTRIAXone 1,000 MG in SYRINGE 1 EACH IV SCH (08:32)
[2019-07-17] MEDS ORDERED: VANCOMYCIN INJ 1,500 MG in SODIUM CHLORIDE 0.9% 500 ML IV ONE (09:00)
[2019-07-17 20:27] LABS: Apearance,Urine CLEAR (Clear); Bacteria,Urine Many /HPF (Few); Bilirubin,Urine Negative (Negative); Blood, Urine Negative (Negative); Glucose,Urine (UA) Negative (Negative); Hyaline Casts,Urine 1 /LPF (0-3); Ketones,Urine Negative (Negative); Mucus,Urine Occasional /LPF (Occasional); Nitrite,Urine Negative (Negative); Protein,Urine Negative; RBC,Urine 3 /HPF (0-4); Urine Color Yellow (Yellow); Urine Urobilinogen < 2.0 EU/DL (0.2-1.0); WBC,Urine 4 /HPF (0-6)
[2019-07-17] MEDS: TEMAZEPAM 15 MG CAPSULE PO PRN (20:53)
[2019-07-17] MEDS: TERAZOSIN 1 MG CAPSULE PO SCH (20:54)
[2019-07-17] MEDS: BENZONATATE 100 MG CAPSULE PO PRN (20:54)
[2019-07-17] MEDS: SERTRALINE 50 MG TABLET PO SCH (20:55)
[2019-07-18] MEDS: methylPREDNISolone SOD SUC 40 MG/1 ML VIAL IV SCH ×3 (00:33→09:55)
[2019-07-18] MEDS: ALBUTEROL/IPRATROPIUM 3 ML NEB RESP TX SCH ×2 (01:30→07:56)
[2019-07-18] MEDS: SODIUM CHLORIDE 0.9% 1,000 ML IV SCH (03:35)
[2019-07-18 04:02] LABS: Basophils % 0.2 % (0.0-0.8); Hematocrit 29.6 VOL% (35.7-47.0); Hemoglobin 9.1 GM/DL (12.0-16.0); Immature Granulocytes % 5.7 %; Immature Granulocytes Absolute 0.53 #; Lymphocytes # 0.7 10*3/uL (1.4-4.0); Lymphocytes % 7.5 % (21.3-54.2); Mean Corpuscular HGB Conc 30.7 GM/DL (32-36); Mean Platelet Volume 10.5 FL (9.6-12.0); Monocytes % 2.8 % (1.7-12.7); Neutrophils % 83.8 % (38.7-73.9); Platelet Count 217 T/CUMM (130-400); Red Blood Count 3.05 MC/CUMM (3.8-5.5); Red Cell Distribution Width 14.6 % (9.3-17.3); White Blood Count 9.2 T/CUMM (4-12)
[2019-07-18 04:34] LABS: Band Neutrophils 1 % (0-10); Hypochromasia 1+; Lymphocytes 11 % (20-55); Ovalocytes Slight; Platelet Estimate Adequate; Segmented Neutrophils 86 % (50-85); Total Cells Counted 100
[2019-07-18 04:51] LABS: Alanine Aminotransferase 11 U/L (13-56); Albumin 2.6 G/DL (3.4-5.0); Alkaline Phosphatase 53 U/L (45-117); Aspartate Amino Transferase 8 U/L (0-37); Bilirubin,Total < 0.39 MG/DL (0.2-1.0); Blood Urea Nitrogen 44 MG/DL (7-18); Calcium 8.3 MG/DL (8.5-10.1); Estimated Glom Filtration Rate 22 ML/MIN; Glucose 172 MG/DL (74-106); Osmolality,Calculated 302.7 MOS/KG (273-304)
[2019-07-18 07:29] VITALS: BP 170/54
[2019-07-18] MEDS ORDERED: LEVOFLOXACIN 500 MG TABLET PO SCH (09:00)
[2019-07-18] MEDS: cefTRIAXone 1,000 MG in SYRINGE 1 EACH IV SCH ×2 (09:46→09:54)
[2019-07-18] MEDS: ASPIRIN EC 81 MG TABLET PO SCH (09:47)
[2019-07-18] MEDS: CELECOXIB 200 MG CAPSULE PO SCH (09:47)
[2019-07-18] MEDS: DOCUSATE SODIUM 100 MG CAPSULE PO SCH (09:47)
[2019-07-18] MEDS: carvediloL 25 MG TABLET PO SCH (09:47)
[2019-07-18] MEDS: PANTOPRAZOLE 40 MG TABLET PO SCH (09:47)
[2019-07-18] MEDS: POTASSIUM CHLORIDE 10 MEQ TABLET PO SCH (09:47)
[2019-07-18] MEDS: FUROSEMIDE 40 MG TABLET PO SCH (09:48)
[2019-07-18] MEDS: ISOSORBIDE MONONITRATE 60 MG TABLET PO SCH (09:48)
[2019-07-18] MEDS ORDERED: VANCOMYCIN INJ 1,250 MG in SODIUM CHLORIDE 0.9% 250 ML IV PRN (10:00)
[2019-07-18] MEDS: BRIMONIDINE/TIMOLOL OPH SOLN 5 ML BOTTLE RIGHT EYE SCH (10:12)
[2019-07-18] MEDS: APIXABAN 5 MG TABLET PO SCH (10:12)
[2019-07-18] MEDS: NEOMYCIN/POLYMYXIN/DEXAMETH OPH OINT 3.5 GM TUBE BOTH EYES SCH (10:12)
== END 2019-07-18 10:09 | disposition hospice, home (50) | DRG 190 ==
LOC: EDBD → EDUNIT# → N.EDINP 12:34 → N.ED 12:34 → N.3E 14:58
PROVIDERS: ADMIT Family Medicine; ATTEND Family Medicine